=== PATIENT | female | born 1935 | race Caucasian/White ===

== ENCOUNTER → 2020-06-23 13:20 | Outpatient (CLI) | payer MEDICARE, SELFPAY ==
--- NOTE | 2020-06-23 13:23 | CT_ITS ---
STUDY: CT CHEST WITHOUT CONTRAST REASON FOR EXAM: Female, 85 years old. COUGH/EVAL. FOR PULMONARY FIBROSIS, HX-A-FIB, NO SMOKING HISTORY RADIATION DOSAGE (If Supplied By Facility): CTDIvol = ( 12.4 ) mGy, DLP = ( 343.88 ) mGycm TECHNIQUE: Transaxial imaging was performed without the administration of intravenous contrast material. Multiplanar coronal and sagittal images were reformatted. Individualized dose optimization techniques were used for this CT. COMPARISON: None. FINDINGS: There is evidence of diffuse groundglass appearance in both lungs worse in the upper lobes. There is evidence of increased interstitial markings at the lung bases with areas of confluence and cystic changes suggestive of bronchiectasis and honeycombing. Calcified granuloma in the right lower lobe. There are calcifications of the coronary arteries. There is moderate cardiac enlargement. There are multiple small lymph nodes within the mediastinum, which are normal in size and morphology most compatible with reactive lymph hyperplasia. Normal hilar regions. Normal unenhanced pulmonary arteries. There is atherosclerotic calcification of the aortic arch with tortuosity and elongation of the aortic arch and descending thoracic aorta. There are multi-level degenerative changes of the thoracic spine. There is no demonstrated abnormality of the visualized upper abdomen. CT/Chest without Contrast IMPRESSION: Findings suggestive of chronic seizures or fibrosis with cystic changes in the lower lobes with a groundglass appearance in both lungs suggestive of chronic interstitial fibrosis. Electronically Signed: Sina Gould, at 16:01 EDT , Service support ,
== END ==
PROVIDERS: PCP Family Medicine; Referring Provider Internal Medicine Pulmonary Disease; Visit Provider Internal Medicine Pulmonary Disease
DX: J84.10 Pulmonary fibrosis, unspecified (principal)
CPT/HCPCS: 71250

== ENCOUNTER → 2020-07-09 | Outpatient (CLI) | payer MEDICARE, SELFPAY ==
[2015-09-21 12:25] VITALS: BMI 28.8
== END | disposition home or self-care (01) ==
LOC: LABSPEC 16:07
PROVIDERS: PCP Family Medicine; Referring Provider Internal Medicine Pulmonary Disease; Visit Provider Internal Medicine Pulmonary Disease
DX: J84.10 Pulmonary fibrosis, unspecified (principal); J84.89 Other specified interstitial pulmonary diseases; I48.91 Unspecified atrial fibrillation
CPT/HCPCS: 87070; 87205

== ENCOUNTER → 2020-11-16 12:53 | Outpatient (CLI) | payer MEDICARE, SELFPAY ==
--- NOTE | 2020-11-16 13:07 | CT_ITS ---
STUDY: CT CHEST WITHOUT CONTRAST REASON FOR EXAM: Female, 85 years old. INTERSTITIAL PULMONARY DISEASE. INCREASE SOB RADIATION DOSAGE (If Supplied By Facility): CTDIvol = ( 11.21 ) mGy, DLP = ( 304.90 ) mGycm TECHNIQUE: Transaxial imaging was performed without the administration of intravenous contrast material. Multiplanar coronal and sagittal images were reformatted. Individualized dose optimization techniques were used for this CT. COMPARISON: Comparison is made with prior study dated 06/23/2020. FINDINGS: Stable benign appearing bilateral axillary lymph nodes. Again, there is evidence of diffuse groundglass appearance in both lungs worse in the upper lobes. Stable interstitial fibrosis with cystic changes suggestive of honeycombing worse in the lower lobes. There is no demonstrated pleural abnormality. There are calcifications of the coronary arteries. There are multiple small lymph nodes within the mediastinum, which are normal in size and morphology most compatible with reactive lymph hyperplasia. Calcified precarinal lymph node. This is unchanged. Normal hilar regions. Normal unenhanced pulmonary arteries. There is atherosclerotic calcification of the aortic arch with tortuosity and elongation of the aortic arch and descending thoracic aorta. There are multi-level degenerative changes of the thoracic spine. There is no demonstrated abnormality of the visualized upper abdomen. CT/Chest without Contrast IMPRESSION: Stable examination. Electronically Signed: Sina Gould MD at 13:30 EST , Service support ,
== END ==
PROVIDERS: PCP Family Medicine; Referring Provider Internal Medicine Pulmonary Disease; Visit Provider Internal Medicine Pulmonary Disease
DX: J84.9 Interstitial pulmonary disease, unspecified (principal)
CPT/HCPCS: 71250

== ENCOUNTER → 2021-03-22 13:13 | Outpatient (CLI) | payer MEDICARE, SELFPAY ==
--- NOTE | 2021-03-22 13:19 | CT_ITS ---
STUDY: CT CHEST WITHOUT CONTRAST REASON FOR EXAM: Female, 85 years old. COUGH. Idiopathic nonspecific interstitial pneumonitis. RADIATION DOSAGE (If Supplied By Facility): CTDIvol = ( 13.08 ) mGy, DLP = ( 373.68 ) mGycm TECHNIQUE: Transaxial imaging was performed without the administration of intravenous contrast material. Multiplanar coronal and sagittal images were reformatted. Individualized dose optimization techniques were used for this CT. COMPARISON: Comparison is made with prior study dated 11/16/2020. FINDINGS: Stable small benign-appearing bilateral axillary lymph nodes. Once again, there is diffuse increased interstitial markings worse in the lower lobes with areas of confluence and subpleural blebs. This is in keeping with diffuse interstitial fibrosis and honeycombing. This is unchanged. There are calcifications of the coronary arteries. There are multiple small lymph nodes within the mediastinum, which are normal in size and morphology most compatible with reactive lymph hyperplasia. Normal hilar regions. Normal unenhanced pulmonary arteries. There is atherosclerotic calcification of the aortic arch with tortuosity and elongation of the aortic arch and descending thoracic aorta. There are multi-level degenerative changes of the thoracic spine. There is no demonstrated abnormality of the visualized upper abdomen. CT/Chest without Contrast IMPRESSION: Stable examination. Electronically Signed: Sina Gould MD at 15:22 EDT , Service support ,
== END ==
PROVIDERS: PCP Family Medicine; Referring Provider Internal Medicine Pulmonary Disease; Visit Provider Internal Medicine Pulmonary Disease
DX: J84.113 Idiopathic non-specific interstitial pneumonitis (principal); R05 Cough
CPT/HCPCS: 71250

== ENCOUNTER 2022-05-27 08:09 | Outpatient (RCR) | payer MEDICARE, SELFPAY ==
[2022-05-27 08:39] VITALS: BP 142/52; PULSE 93; TEMP 36.3
--- NOTE | 2022-05-27 10:14 | HP.PCM_ITS ---
History of Present Illness Date of Service: 05/27/22 Chief Complaint: Left leg wound and right anterior leg wound History of Wound: Left leg wound occurred the end of March when she getting into a Jeep, she scraped her leg along the side of the vehicle. She went to her PCP who had her placing silvadene cream topped with telfa dressing on the wound. Last week she dropped her Ipad and it hit her right anterior leg and left an open wound, which has been draining quite a bit of clear drainage. She has a history of pulmonary fibrosis and is on oxygen at night time and PRN, Afib on warfarin, CKD stage 3, HTN, hypothyroidism, hyperlipidemia, aortic valve regurgitation, and bilateral knee replacements. She does sleep in a chair. She denies any fever, chills, nausea or vomiting. Progress of Wound: Left leg wound has necrotic scabbing present. Right anterior leg wound is a small separation. She has +3 pitting edema present bilateral lower extremities. [facility] Medical History (Reviewed 05/29/22 @ 21:35 by Justyna Conley PROCESS CONTROL TECHNICIAN, PROCESS CONTROL TECHNICIAN-C) Atrial fibrillation Hypertension Hypothyroidism Osteoarthritis Paroxysmal a-fib Home Medications Digoxin [Digox] 250 mcg PO QODAY 04/30/15 [History Last Taken Unknown] dofetilide 500 mcg capsule (Tikosyn) 500 mcg PO BID 04/30/15 [History Last Taken 09/21/15 06:59] furosemide 40 mg tablet 40 mg PO BIDLX 04/30/15 [History Last Taken Unknown] levothyroxine 75 mcg tablet 75 mcg PO DAILY 04/30/15 [History Last Taken 09/21/15 06:58] metoprolol tartrate 50 mg tablet 50 mg PO BID 04/30/15 [History Last Taken 09/21/15 06:58] multivitamin with folic acid 400 mcg tablet (Thera) 1 tab PO DAILY 04/30/15 [History Last Taken Unknown] acetaminophen 325 mg tablet (Tylenol) 650 mg PO Q6H PRN PRN Minor Pain ##1 09/23/15 [Rx Last Taken Unknown] docusate calcium 240 mg capsule (Stool Softener (docusate calcium)) 240 mg PO DAILY ##1 09/23/15 [Rx Last Taken Unknown] enoxaparin 40 mg/0.4 mL subcutaneous syringe (Lovenox) 40 mg SQ DAILY ##1 09/23/15 [Rx Last Taken Unknown] hydrocodone-acetaminophen 5-325mg 5mg-325mg 1 - 2 tab PO Q4H PRN PRN Mild-Mod Pain (-03/08) ##60 09/23/15 [Rx Last Taken Unknown] warfarin 5 mg tablet (Jantoven) 5 mg PO DAILY ##0 09/23/15 [Rx Last Taken 05/06/15] Allergy/AdvReac Type Severity Reaction Status Date / Time No Known Allergies Allergy Verified 04/30/15 10:07 Surgical History (Reviewed 05/29/22 @ 21:35 by Justyna Conley PROCESS CONTROL TECHNICIAN, PROCESS CONTROL TECHNICIAN-C) Status post total left knee replacement Social History (Reviewed 05/29/22 @ 21:35 by Justyna Conley PROCESS CONTROL TECHNICIAN, PROCESS CONTROL TECHNICIAN-C) Smoking Status: Never smoker ROS Constitutional Constitutional: Denies chills or fever(s) Eyes Eyes: Reports requires corrective lenses ENT HEENT: Reports none Cardiovascular Cardiovascular: Reports dyspnea on exertion and pedal edema; Denies chest pain or dizziness Respiratory/Chest Respiratory/Chest: Reports portable oxygen @ home and shortness of breath with exertion Gastrointestinal Gastrointestinal: Reports constipation; Denies diarrhea, nausea or vomiting Musculoskeletal Musculoskeletal: Reports joint pain and joint stiffness Integumentary Integumentary: Reports wounds Neurologic Neurologic: Reports none Psychiatric Psychiatric: Reports none Endocrine Endocrinology: Reports as per HPI Hematologic/Lymphatic Hematologic/Lymphatic: Reports easy bruising Vital Signs Vital Signs Vital Signs: 05/27/22 08:39 Temperature 97.4 F L Temperature Source Temporal Pulse Rate 93 Blood Pressure 142/52 H Blood Pressure Mean 82 Blood Pressure Source Monitor Blood Pressure Position Sitting Blood Pressure Location Left Arm Physical Exam Const alert, oriented x3 and no apparent distress General Appearance: cooperative and well kempt HEENT normocephalic and head/scalp atraumatic Face and Sinus: face symmetric Neck full ROM Resp normal air movement, no retractions and clear to auscultation bilaterally Effort and Inspection: able to speak in complete sentences Cardio regular rate Rhythm: abnormal rhythm irregularly irregular Peripheral Pulses: dorsalis pedis pulses present bilateral 1+ GI soft to palpation and non-tender Extremity normal capillary refill General Extremity: edema bilateral lower extremity (+3) Details: severe Peripheral Pulses: Yes dorsalis pedis pulses present bilateral 1+ Skin Wound Narrative: Left leg wound with necrotic scabbing. Right anterior leg wound is small open area draining clear drainage. Neuro oriented x3 Psych cooperative and affect normal Appearance: appropriate Debridement Note Debridement Note Wound debrided: leg wound Laterality: Left Type of Debridement: Excisional debridement Anesthesia Used: 5% Lidocaine Gel Depth: Down to and including healthy tissue and in the subcutaneous layer Percentage of wound debrided: 100 Instrument Used: 5mm curette Tissue Removed: Non viable tissue and slough Severity: Fat Layer Exposed Amount of bleeding with debridement: Mild Bleeding Controlled with: Pressure and Compression and gauze Patient tolerated procedure: Patient tolerated procedure well Debridement Free Text: After necrotic, non viable tissue removed, the base of ulcer is fibrous Post-Debridement Measurements and Additional Note: Post-Debridement Measurements/Treatment - Nurse 1 - General Ulcer Assessment Start: 05/27/22 08:39 Freq: Status: Active Protocol: FIDELINA Activity Type Activity Date Activity User E-sign Co-sign Detail Recorded Client Recorded Date Recorded By Document 05/27/22 08:39 LINDSEY [id number] 05/27/22 08:51 KR 05/27/22 08:39 WC - Today's Visit Information Type of service Initial Visit Arrival Mode Wheelchair Patient Identification Verified (Name & Yes ) Vital Signs Temperature (97.8 F-99.1 F) 97.4 F L Temperature Source Temporal Pulse Rate (60-100) 93 Pulse Location Monitor Blood Pressure (90/60-120/80) 142/52 H Blood Pressure Mean 82 Source Monitor Position Sitting Blood Pressure Location Left Arm History Since Last Visit- (Skip if this is Patient's initial visit) Have you changed medications since your No last visit? Any new allergies or adverse reactions No Had a fall/change in ADL's that may No increase risk of falls Signs or symptoms of abuse and/or No neglect since last visit Have you been in the hospital since your No last visit? Has dressing in place as prescribed Yes Has compression in place as prescribed Yes Has offloadiing in place as prescribed N/A Left Footwear Regular Shoe Right Footwear Regular Shoe Pain Scale: 0-10 Numeric Is Patient Pain Free? Yes - Nurse 1 - General Ulcer Measurement Start: 05/27/22 08:39 Freq: Status: Active Protocol: Activity Type Activity Date Activity User E-sign Co-sign Detail Recorded Client Recorded Date Recorded By Document 05/27/22 08:39 KR [id number] 05/27/22 08:51 KR 05/27/22 08:39 Wound Center Nurse 1 #2 left farias -Current Size (cm) - Length 5 -Current Size (cm) - Width 5.5 -Current Size (cm) - Depth 0.2 -Total Square Cm 27.5 -Exudate Amt Large -Exudate Type Yellow/Green -Wound Margin Distinct, Outline Attached -Necrosis Amt Large (67-100%) -Necrotic Tissue Type Eschar -Texture (Sheba-wound Skin Appearance) Assessed, Scarring -Moisture (Sheba-wound Skin Appearance) No Abnormality, Assessed -Color (Sheba-wound Skin Appearance) No Abnormality, Assessed -Temperature (Sheba-wound Skin No Abnormality Appearance) (Pt Warm) -Tenderness on Palpation (Sheba-wound No Skin Appearance) -Ulcer Cleansing Rinsed/ Irrigated with Saline -Foul Odor after Cleansing No -Anesthetic Used 5% Lidocaine Gel #1 right farias -Current Size (cm) - Length 0.1 -Current Size (cm) - Width 0.6 -Current Size (cm) - Depth 0.1 -Total Square Cm 0.06 -Exudate Amt Large -Exudate Type Yellow/Green -Wound Margin Distinct, Outline Attached -Granulation Amt Medium (34-66%) -Granulation Quality [place] -Necrosis Amt None Present (0 %) -Texture (Sheba-wound Skin Appearance) Assessed, Scarring -Moisture (Sheba-wound Skin Appearance) No Abnormality, Assessed -Color (Sheba-wound Skin Appearance) No Abnormality, Assessed -Temperature (Sheba-wound Skin No Abnormality Appearance) (Pt Warm) -Tenderness on Palpation (Sheba-wound No Skin Appearance) -Ulcer Cleansing Rinsed/ Irrigated with Saline -Foul Odor after Cleansing No -Anesthetic Used 5% Lidocaine Gel Right Calf (cm) 39 Right Ankle (cm) 26 Left Calf (cm) 44 Left Ankle (cm) 25 WC - Nurse 2 - General Ulcer CM Notes Start: 05/27/22 08:39 Freq: Status: Active Protocol: Activity Type Activity Date Activity User E-sign Co-sign Detail Recorded Client Recorded Date Recorded By Document 05/27/22 09:15 KAITLIN [id number] 05/27/22 09:28 KAITLIN 07/29/22 09:15 Wound Center Nurse 2 #2 left farias -Time 09:15 -Correct Patient Yes -Correct Side, Site, Position Yes -Correct Procedure Yes -Procedure Performed Yes -Type of Procedure Debridement -Clinical Debridement Subcutaneous -Tissue Removed Subcutaneous -Post Debridement (cm) - Length 5.0 -Post Debridement (cm) - Width 4.8 -Post Debridement (cm) - Depth 0.3 -Total Square (Post) (cm) 24.00 -Area of Debridement (cm) - Length 5.0 -Area of Debridement (cm) - Width 4.8 -Total Square (Area) (cm) 24.00 -Tunneling No -Undermining/Tunneling No -Circular Undermining No -Wound/Ulcer Outcome Not Healed -Ulcer Cleansing Rinsed/ Irrigated with Saline -Foul Odor after Cleansing No -Bioengineered Tissue No -Bleeding Controlled with Pressure -Treatment Response Procedure Tolerated Well -Offloading No -Debridement - Subq, 1st 20sq cm Yes -Debridement, SubQ, ea addt'l 20sq cm 1 or part thereof #1 right farias -Time 09:16 -Correct Patient Yes -Correct Side, Site, Position Yes -Correct Procedure Yes -Procedure Performed Yes -Type of Procedure Debridement -Clinical Debridement Subcutaneous -Tissue Removed Subcutaneous -Post Debridement (cm) - Length 0.2 -Post Debridement (cm) - Width 0.8 -Post Debridement (cm) - Depth 0.3 -Total Square (Post) (cm) 0.16 -Area of Debridement (cm) - Length 0.2 -Area of Debridement (cm) - Width 0.8 -Total Square (Area) (cm) 0.16 -Tunneling No -Undermining/Tunneling Yes -Undermining/Tunneling Starts (O'clock 3 ) -Undermining/Tunneling Ends (O'clock) 9 -Maximum Distance (cm) 0.3 -Circular Undermining No -Wound/Ulcer Outcome Not Healed -Ulcer Cleansing Rinsed/ Irrigated with Saline -Foul Odor after Cleansing No -Bioengineered Tissue No -Bleeding Controlled with Pressure -Treatment Response Procedure Tolerated Well -Offloading No -Debridement - Subq, 1st 20sq cm No Pain Scale: 0-10 Numeric Is Patient Pain Free? Yes WC - Nurse 3 - General Ulcer D/C NN Start: 05/27/22 08:39 Freq: Status: Active Protocol: Activity Type Activity Date Activity User E-sign Co-sign Detail Recorded Client Recorded Date Recorded By Document 05/27/22 09:59 LINDSEY [id number] 05/27/22 10:00 LINDSEY 05/27/22 09:59 Wound Care Nurse 3 #2 left farias -Ulcer Cleansing Rinsed/ Irrigated with Saline -Primary Dressing Applied Aquacel AG 4x4 -Primary Dressing Covered/Secured with Dry Gauze,Dry Gauze & Roll Gauze,Secured with Tape -Aquacel AG 4x4 1 Right -Compression Wrap Steve Wrap Left -Compression Wrap Steve Wrap Pain Scale: 0-10 Numeric Is Patient Pain Free? Yes WC - Visit Discharge Discharge Condition Stable Ambulatory Status Wheelchair Transportation Private Auto Accompanied by daughter Additional Wound Wound debrided: anterior leg wound Laterality: Right Type of Debridement: Excisional debridement Anesthesia Used: 5% Lidocaine Gel Depth: Down to and including healthy tissue and in the subcutaneous layer Percentage of wound debrided: 100 Instrument Used: 3mm curette Tissue Removed: Non viable tissue and slough Severity: Fat Layer Exposed Amount of bleeding with debridement: Mild Bleeding Controlled with: Pressure Patient tolerated procedure: Patient tolerated procedure well Charges/Coding Visit Charges Office Visits / Consults: [id number] OV L4 Est (25 modifier) Procedures Integumentary [id number]: [id number] Clari subq tissue 20 sq cm/< Assessment/Plan Assessment/Plan (1) Non-healing wound of left lower extremity: CODE(S): S81.802A - Unspecified open wound, left lower leg, initial encounter (2) Wound of right lower extremity: CODE(S): S81.801A - Unspecified open wound, right lower leg, initial encounter (3) Edema of both lower legs: CODE(S): R60.0 - Localized edema (4) Chronic anticoagulation: CODE(S): Z79.01 - oysterman (current) use of anticoagulants (5) On home oxygen therapy: CODE(S): Z99.81 - Dependence on supplemental oxygen PLAN: Plan Patient was seen and evaluated today at the wound center and a subcutaneous debridement was performed as documented. A wound culture was obtained of the left leg wound today. Depending on the results of the culture, it may necessitate the need for treatment with a ntibiotics. Wound care - Left leg wound Santyl nickel thickness covered with gauze daily. Right leg wound aquacel-ag covered with super absorber/ABD daily. She should wash the wounds with soap and water daily. Place STEVE wrap on bilateral lower legs to help with compression. Will order vascular studies of bilateral lower extremities. Encouraged patient to try sleeping flat to help with edema, but she states she needs to sleep in her chair to help her breathe. Keep legs elevated when seated. Encouraged high protein diet and Vitamin C 1,000 mg intake daily to help with wound healing. Follow up one week. Call or come in sooner if have any questions or concerns. Greater than 35 minutes spent with patient, planning care and reviewing notes from PCP.
== END 2022-05-29 23:59 | disposition home or self-care (01) ==
LOC: WC 08:09
PROVIDERS: PCP Family Medicine; Visit Provider Nurse Practitioner Family
DX: L97.822 Non-pressure chronic ulcer of other part of left lower leg with fat layer exposed (principal); L97.812 Non-pressure chronic ulcer of other part of right lower leg with fat layer exposed; I48.0 Paroxysmal atrial fibrillation; J84.10 Pulmonary fibrosis, unspecified; N18.30 Chronic kidney disease, stage 3 unspecified; R60.0 Localized edema; E78.5 Hyperlipidemia, unspecified; Z79.01 Long term (current) use of anticoagulants; I12.9 Hypertensive chronic kidney disease with stage 1 through stage 4 chronic kidney disease, or unspecified chronic kidney disease; Z99.81 Dependence on supplemental oxygen; M19.90 Unspecified osteoarthritis, unspecified site; E03.9 Hypothyroidism, unspecified; Z79.899 Other long term (current) drug therapy; Z79.890 Hormone replacement therapy
CPT/HCPCS: 11042; 11045; 87070; 87075; 87077; 87186; 87205; 99213; G0463

== ENCOUNTER 2022-06-22 14:00 | Outpatient (RCR) | payer MEDICARE, SELFPAY ==
[2022-05-30 00:42] VITALS: BP 142/52; PULSE 93; TEMP 36.3
[2022-06-03 11:04] VITALS: BP 153/73; PULSE 77; TEMP 36.1
--- NOTE | 2022-06-03 11:33 | PCM.WC.PN ---
History of Present Illness Date of Service: 06/03/22 Chief Complaint: Left leg wound and right anterior leg wound History of Wound: Left leg wound occurred the end of March when she getting into a Jeep, she scraped her leg along the side of the vehicle. She went to her PCP who had her placing silvadene cream topped with telfa dressing on the wound. Last week she dropped her Ipad and it hit her right anterior leg and left an open wound, which has been draining quite a bit of clear drainage. She has a history of pulmonary fibrosis and is on oxygen at night time and PRN, Afib on warfarin, CKD stage 3, HTN, hypothyroidism, hyperlipidemia, aortic valve regurgitation, and bilateral knee replacements. She does sleep in a chair. Wound care - left anterior leg ulcer and right anterior leg wound Santyl nickel thickness covered with gauze daily. DERRELL wrap for compression. Make sure to wrap lower legs up to knees. Wound culture obtained on Staphylococcus epidermidis, Corynebacterium jeikeium, Corynebacterium amycolatum She denies any fever, chills, nausea or vomiting. Progress of Wound: Right anterior leg ulcer and left anterior leg ulcer are both stable. Left anterior leg ulcer continues to have fibrous, non viable tissue present. Her edema is much improved with DERRELL wraps for compression. Objective Data Objective Data Vital Signs: Vital Signs Temp Pulse BP 97.0 F L 77 153/73 H 06/03/22 11:04 06/03/22 11:04 06/03/22 11:04 Charges/Coding Procedures Integumentary 111xxx-113xx: 11312 Clari subq tissue 20 sq cm/< Physical Exam Const alert and oriented x3 General Appearance: cooperative HEENT normocephalic Neck full ROM Resp normal air movement Effort and Inspection: able to speak in complete sentences Cardio regular rate Cardio Narrative: bilateral lower extremity edema is much improved with compression +1-+2 to proximal leg then it increases to +2-+3 edema around her knees bilaterally. Peripheral Pulses: dorsalis pedis pulses present bilateral 1+ Extremity normal capillary refill General Extremity: edema bilateral lower extremity (+3) Details: severe Peripheral Pulses: Yes dorsalis pedis pulses present bilateral 1+ Skin Wound Narrative: Left leg wound with fibrous tissue in the base. It is showing improvement. Left anterior leg ulcer is small and continues to drain. Neuro oriented x3 Psych affect normal Appearance: appropriate Debridement Note Debridement Note Wound debrided: Anterior leg ulcer Laterality: Right Type of Debridement: Excisional debridement Anesthesia Used: 4% Lidocaine Solution and 5% Lidocaine Gel Depth: Down to and including healthy tissue and in the subcutaneous layer Percentage of wound debrided: 100 Instrument Used: 3mm curette Tissue Removed: Devitalized tissue and slough Severity: Fat Layer Exposed Amount of bleeding with debridement: Mild Bleeding Controlled with: Compression and gauze Patient tolerated procedure: Patient tolerated procedure well Post-Debridement Measurements and Additional Note: Post-Debridement Measurements/Treatment WC - Nurse 1 - General Ulcer Assessment Start: 06/03/22 11:04 Freq: Status: Active Protocol: FIDELINA Activity Type Activity Date Activity User E-sign Co-sign Detail Recorded Client Recorded Date Recorded By Document 06/03/22 11:04 NIYA [id number] 06/03/22 11:07 NIYA 06/03/22 11:04 WC - Today's Visit Information Type of service Follow-up Visit (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 Any new allergies or adverse reactions No Had a fall/change in ADL's that may No increase risk of falls Signs or symptoms of abuse and/or No neglect since last visit Have you been in the hospital since your No last visit? Has dressing in place as prescribed Yes Has compression in place as prescribed N/A Has offloadiing in place as prescribed N/A Experienced any changes in pain level or No management Left Footwear Regular Shoe Right Footwear Regular Shoe Pain Scale: 0-10 Numeric Is Patient Pain Free? Yes LUCIANO - Nurse 1 - General Ulcer Measurement Start: 06/03/22 11:04 Freq: Status: Active Protocol: Activity Type Activity Date Activity User E-sign Co-sign Detail Recorded Client Recorded Date Recorded By Document 06/03/22 11:04 NIYA [id number] 06/03/22 11:07 AK 06/03/22 11:04 Wound Center Nurse 1 #2 left farias -Current Size (cm) - Length 4.6 -Current Size (cm) - Width 3.4 -Current Size (cm) - Depth 0.1 -Total Square Cm 15.64 -Exudate Amt Small -Exudate Type Serosanguineous -Wound Margin Distinct, Outline Attached -Granulation Amt Medium (34-66%) -Granulation Quality [place] -Necrosis Amt Small (1-33%) -Necrotic Tissue Type Adherent Slough -Texture (Sheba-wound Skin Appearance) Assessed, Scarring -Moisture (Sheba-wound Skin Appearance) No Abnormality, Assessed -Color (Sheba-wound Skin Appearance) No Abnormality, Assessed -Temperature (Sheba-wound Skin No Abnormality Appearance) (Pt Warm) -Tenderness on Palpation (Sheba-wound No Skin Appearance) -Ulcer Cleansing Rinsed/ Irrigated with Saline -Foul Odor after Cleansing No -Anesthetic Used 5% Lidocaine Gel #1 right farias -Current Size (cm) - Length 0.5 -Current Size (cm) - Width 0.7 -Current Size (cm) - Depth 0.2 -Total Square Cm 0.35 -Exudate Amt Small -Exudate Type Serosanguineous -Wound Margin Distinct, Outline Attached -Granulation Amt Medium (34-66%) -Granulation Quality [place] -Necrosis Amt Small (1-33%) -Necrotic Tissue Type Adherent Slough -Texture (Sheba-wound Skin Appearance) Assessed, Scarring -Moisture (Sheba-wound Skin Appearance) No Abnormality, Assessed -Color (Sheba-wound Skin Appearance) No Abnormality, Assessed -Temperature (Sheba-wound Skin No Abnormality Appearance) (Pt Warm) -Tenderness on Palpation (Sheba-wound No Skin Appearance) -Ulcer Cleansing Rinsed/ Irrigated with Saline -Foul Odor after Cleansing No -Anesthetic Used 5% Lidocaine Gel WC - Nurse 3 - General Ulcer D/C NN Start: 06/03/22 11:04 Freq: Status: Active Protocol: Activity Type Activity Date Activity User E-sign Co-sign Detail Recorded Client Recorded Date Recorded By Document 06/03/22 11:25 LINDSEY [id number] 06/03/22 11:26 KR 06/03/22 11:25 Wound Care Nurse 3 #2 left farias -Ulcer Cleansing Rinsed/ Irrigated with Saline -Primary Dressing Applied C Hydrogel ($) -Primary Dressing Covered/Secured with Dry Gauze, Secured with Tape #1 right farias -Primary Dressing Applied C Hydrogel ($) -Primary Dressing Covered/Secured with Dry Gauze, Secured with Tape Right -Compression Wrap Derrlel Wrap Left -Compression Wrap Derrell Wrap Pain Scale: 0-10 Numeric Is Patient Pain Free? Yes WC - Visit Discharge Discharge Condition Stable Ambulatory Status Ambulatory Transportation Private Auto Accompanied by son Additional Wound Wound debrided: Anterior leg ulcer Laterality: Left Type of Debridement: Excisional debridement Anesthesia Used: 5% Lidocaine Gel Depth: Down to and including healthy tissue and in the subcutaneous layer Percentage of wound debrided: 100 Instrument Used: 5mm curette Tissue Removed: Devitalized tissue and slough Severity: Fat Layer Exposed Amount of bleeding with debridement: Mild Bleeding Controlled with: Compression and gauze Patient tolerated procedure: Patient tolerated procedure well Assessment/Plan Assessment/Plan (1) Ulcer of left lower extremity with fat layer exposed: CODE(S): L97.922 - Non-pressure chronic ulcer of unspecified part of left lower leg with fat layer exposed (2) Wound of right lower extremity: CODE(S): S81.801A - Unspecified open wound, right lower leg, initial encounter (3) Edema of both lower legs: CODE(S): R60.0 - Localized edema (4) Chronic anticoagulation: CODE(S): Z79.01 - prison (current) use of anticoagulants (5) On home oxygen therapy: CODE(S): Z99.81 - Dependence on supplemental oxygen (6) Atrial fibrillation: CODE(S): I48.91 - Unspecified atrial fibrillation PLAN: Plan Patient was seen and evaluated today at the wound center and a subcutaneous debridement was performed as documented. Wound culture obtained on 05/27/22 Staphylococcus epidermidis, Corynebacterium jeikeium, Corynebacterium amycolatum. She was started on Augmentin and a probiotic. Wound care - Left leg ulcer and right leg wound Santyl nickel thickness covered with gauze daily. She should wash the wounds with soap and water daily. Place DERRELL wrap on bilateral lower legs to help with compression. Will order vascular studies of bilateral lower extremities. Encouraged patient to try sleeping flat to help with edema, but she states she needs to sleep in her chair to help her breathe. Keep legs elevated when seated. Encouraged high protein diet and Vitamin C 1,000 mg intake daily to help with wound healing. Follow up one week. Call or come in sooner if have any questions or concerns.
[2022-06-07 14:21] VITALS: BP 159/72; PULSE 95; RESP 22; TEMP 36.3
--- NOTE | 2022-06-07 16:16 | PCM.WC.PN ---
History of Present Illness Date of Service: 06/07/22 Chief Complaint: Left leg wound and right anterior leg wound History of Wound: Left leg wound occurred the end of March when she getting into a Jeep, she scraped her leg along the side of the vehicle. She went to her PCP who had her placing silvadene cream topped with telfa dressing on the wound. Last week she dropped her Ipad and it hit her right anterior leg and left an open wound, which has been draining quite a bit of clear drainage. She has a history of pulmonary fibrosis and is on oxygen at night time and PRN, Afib on warfarin, CKD stage 3, HTN, hypothyroidism, hyperlipidemia, aortic valve regurgitation, and bilateral knee replacements. She does sleep in a chair. Wound care - left anterior leg ulcer and right anterior leg wound Santyl nickel thickness covered with gauze daily. STEVE wrap for compression. Wound culture obtained on Staphylococcus epidermidis, Corynebacterium jeikeium, Corynebacterium amycolatum and she is being treated with Augmentin and a probiotic. She denies any fever, chills, nausea or vomiting. Objective Data Objective Data Vital Signs: Vital Signs Temp Pulse Resp BP 97.4 F L 95 22 H 159/72 H 06/07/22 14:21 06/07/22 14:21 06/07/22 14:21 06/07/22 14:21 Charges/Coding Procedures Integumentary 111xxx-113xx: 07497 Clari subq tissue 20 sq cm/< Add On Codes: 26442 Clari subq tissue add-on (x1) Physical Exam Const alert and oriented x3 General Appearance: cooperative HEENT normocephalic Neck full ROM Resp normal air movement Effort and Inspection: able to speak in complete sentences Cardio regular rate Cardio Narrative: bilateral lower extremity edema is much improved with compression +1-+2 to proximal leg then it increases to +2-+3 edema around her knees bilaterally. Peripheral Pulses: dorsalis pedis pulses present bilateral 1+ Extremity normal capillary refill General Extremity: edema bilateral lower extremity (+3) Details: severe Peripheral Pulses: Yes dorsalis pedis pulses present bilateral 1+ Skin Wound Narrative: Left leg wound with fibrous tissue in the base. It is showing improvement. Left anterior leg ulcer is small and base is beefy pink. Neuro oriented x3 Psych affect normal Appearance: appropriate Debridement Note Debridement Note Wound debrided: Anterior leg ulcer Laterality: Right Type of Debridement: Excisional debridement Anesthesia Used: 4% Lidocaine Solution and 5% Lidocaine Gel Depth: Down to and including healthy tissue and in the subcutaneous layer Percentage of wound debrided: 100 Instrument Used: 3mm curette Tissue Removed: Devitalized tissue and slough Severity: Fat Layer Exposed Amount of bleeding with debridement: Mild Bleeding Controlled with: Compression and gauze Patient tolerated procedure: Patient tolerated procedure well Post-Debridement Measurements and Additional Note: Post-Debridement Measurements/Treatment - Nurse 1 - General Ulcer Assessment Start: 06/03/22 11:04 Freq: Status: Active Protocol: FIDELINA Activity Type Activity Date Activity User E-sign Co-sign Detail Recorded Client Recorded Date Recorded By Document 06/03/22 11:04 AK [id number] 06/03/22 11:07 AK Document 06/07/22 14:21 DL [id number] 06/07/22 14:31 DL 06/03/22 06/07/22 11:04 14:21 - Today's Visit Information Type of service Follow-up Visit Follow-up Visit (Physician/LEAN MANUFACTURING COORDINATOR (Physician/LEAN MANUFACTURING 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 ) ) Arrival Mode Ambulatory Ambulatory, Wheelchair Transfer Assistance Manual Transfer Assist (Other) x1 Patient Identification Verified (Name & Yes Yes ) Patient Requires Transmission-Based No Precautions Vital Signs Temperature (97.8 F-99.1 F) 97.0 F L 97.4 F L Temperature Source Temporal Temporal Pulse Rate (60-100) 77 95 Pulse Location Monitor Monitor Respiratory Rate (12-18) 22 H Respiratory rate source Observation Blood Pressure (90/60-120/80) 153/73 H 159/72 H Blood Pressure Mean (mm Hg) 99 101 Source Monitor Monitor Position Semi-Fowlers Blood Pressure Location Right Arm History Since Last Visit- (Skip if this is Patient's initial visit) Have you changed medications since your No No last visit? Any new allergies or adverse reactions No No Had a fall/change in ADL's that may No No increase risk of falls Signs or symptoms of abuse and/or No No neglect since last visit Have you been in the hospital since your No No last visit? Has dressing in place as prescribed Yes Yes Has compression in place as prescribed N/A Yes Has offloadiing in place as prescribed N/A N/A Experienced any changes in pain level or No No management Left Footwear Regular Shoe Right Footwear Regular Shoe Pain Scale: 0-10 Numeric Is Patient Pain Free? Yes Yes WC - Nurse 1 - General Ulcer Measurement Start: 06/03/22 11:04 Freq: Status: Active Protocol: Activity Type Activity Date Activity User E-sign Co-sign Detail Recorded Client Recorded Date Recorded By Document 06/03/22 11:04 AK [id number] 06/03/22 11:07 AK Document 06/07/22 14:21 DL [id number] 06/07/22 14:31 DL 06/03/22 06/07/22 11:04 14:21 Wound Center Nurse 1 #2 left farias -Current Size (cm) - Length 4.6 5 -Current Size (cm) - Width 3.4 4.1 -Current Size (cm) - Depth 0.1 0.1 -Total Square Cm 15.64 20.5 -Photo Taken No -Exudate Amt Small Medium -Exudate Type Serosanguineous Serosanguineous -Wound Margin Distinct, Distinct, Outline Outline Attached Attached -Granulation Amt Medium (34-66%) Medium (34-66%) -Granulation Quality [place],Red -Necrosis Amt Small (1-33%) Medium (34-66%) -Necrotic Tissue Type Adherent Slough Adherent Slough -Structure Exposed N/A -Texture (Sheba-wound Skin Appearance) Assessed, Scarring Scarring -Moisture (Sheba-wound Skin Appearance) No Abnormality, No Abnormality Assessed -Color (Sheba-wound Skin Appearance) No Abnormality, Hemosiderin Assessed Staining -Temperature (Sheba-wound Skin No Abnormality No Abnormality Appearance) (Pt Warm) (Pt Warm) -Tenderness on Palpation (Sheba-wound No Skin Appearance) -Ulcer Cleansing Rinsed/ Rinsed/ Irrigated with Irrigated with Saline Saline -Foul Odor after Cleansing No No -Anesthetic Used 5% Lidocaine 4% Lidocaine Gel Solution #1 right farias -Current Size (cm) - Length 0.5 0.6 -Current Size (cm) - Width 0.7 0.5 -Current Size (cm) - Depth 0.2 0.4 -Total Square Cm 0.35 0.30 -Photo Taken No -Maximum Distance #2 (cm) 0.1 -Circular Undermining Yes -Exudate Amt Small Small -Exudate Type Serosanguineous Serosanguineous -Wound Margin Distinct, Thickened & Outline Rolled Under Attached -Granulation Amt Medium (34-66%) Small (1-33%) -Granulation Quality [place] Red -Necrosis Amt Small (1-33%) Small (1-33%) -Necrotic Tissue Type Adherent Slough Adherent Slough -Structure Exposed N/A -Texture (Sheba-wound Skin Appearance) Assessed, Scarring Scarring -Moisture (Sheba-wound Skin Appearance) No Abnormality, No Abnormality Assessed -Color (Sheba-wound Skin Appearance) No Abnormality, Hemosiderin Assessed Staining -Temperature (Sheba-wound Skin No Abnormality No Abnormality Appearance) (Pt Warm) (Pt Warm) -Tenderness on Palpation (Sheba-wound No Skin Appearance) -Ulcer Cleansing Rinsed/ Rinsed/ Irrigated with Irrigated with Saline Saline -Foul Odor after Cleansing No No -Anesthetic Used 5% Lidocaine 4% Lidocaine Gel Solution Right Calf (cm) 42.5 Right Ankle (cm) 22.8 Left Calf (cm) 42.5 Left Ankle (cm) 24.2 - Nurse 2 - General Ulcer CM Notes Start: 06/03/22 11:04 Freq: Status: Active Protocol: Activity Type Activity Date Activity User E-sign Co-sign Detail Recorded Client Recorded Date Recorded By Document 06/03/22 12:04 PUSHPA [id number] 06/03/22 12:07 PUSHPA Document 06/07/22 14:47 KAITLIN [id number] 06/07/22 14:51 KAITLIN 06/03/22 06/07/22 12:04 14:47 Wound Center Nurse 2 #2 left farias -Time 11:11 14:47 -Correct Patient Yes Yes -Correct Side, Site, Position Yes Yes -Correct Procedure Yes Yes -Procedure Performed Yes Yes -Type of Procedure Debridement Debridement -Clinical Debridement Subcutaneous Subcutaneous -Tissue Removed Subcutaneous Subcutaneous -Post Debridement (cm) - Length 5.4 5.4 -Post Debridement (cm) - Width 4.2 4.3 -Post Debridement (cm) - Depth 0.1 0.2 -Total Square (Post) (cm) 22.68 23.22 -Area of Debridement (cm) - Length 5.4 5.4 -Area of Debridement (cm) - Width 4.2 4.3 -Total Square (Area) (cm) 22.68 23.22 -Tunneling No No -Undermining/Tunneling No No -Circular Undermining No No -Wound/Ulcer Outcome Not Healed Not Healed -Ulcer Cleansing Rinsed/ Rinsed/ Irrigated with Irrigated with Saline Saline -Foul Odor after Cleansing No No -Bioengineered Tissue No No -Bleeding Controlled with Pressure Pressure -Treatment Response Procedure Procedure Tolerated Well Tolerated Well -Offloading No -Debridement - Subq, 1st 20sq cm Yes Yes -Debridement, SubQ, ea addt'l 20sq cm 1 1 or part thereof #1 right farias -Time 11:11 14:50 -Correct Patient Yes Yes -Correct Side, Site, Position Yes Yes -Correct Procedure Yes Yes -Procedure Performed Yes Yes -Type of Procedure Debridement Debridement -Clinical Debridement Subcutaneous Subcutaneous -Tissue Removed Subcutaneous Subcutaneous -Post Debridement (cm) - Length 0.7 0.5 -Post Debridement (cm) - Width 0.5 0.5 -Post Debridement (cm) - Depth 0.3 0.3 -Total Square (Post) (cm) 0.35 0.25 -Area of Debridement (cm) - Length 0.7 0.5 -Area of Debridement (cm) - Width 0.5 0.5 -Total Square (Area) (cm) 0.35 0.25 -Tunneling No No -Undermining/Tunneling No No -Circular Undermining No No -Wound/Ulcer Outcome Not Healed Not Healed -Ulcer Cleansing Rinsed/ Rinsed/ Irrigated with Irrigated with Saline Saline -Foul Odor after Cleansing No No -Bioengineered Tissue No No -Bleeding Controlled with Pressure Pressure -Treatment Response Procedure Procedure Tolerated Well Tolerated Well -Offloading No -Debridement - Subq, 1st 20sq cm No No Pain Scale: 0-10 Numeric Is Patient Pain Free? Yes Yes WC - Nurse 3 - General Ulcer D/C NN Start: 06/03/22 11:04 Freq: Status: Active Protocol: Activity Type Activity Date Activity User E-sign Co-sign Detail Recorded Client Recorded Date Recorded By Document 06/03/22 11:25 LINDSEY [id number] 06/03/22 11:26 KR Document 06/07/22 15:09 [facility] [id number] 06/07/22 15:10 BMF 06/03/22 06/07/22 11:25 15:09 Wound Care Nurse 3 #2 left farias -Ulcer Cleansing Rinsed/ Rinsed/ Irrigated with Irrigated with Saline Saline -Foul Odor after Cleansing No -Primary Dressing Applied C Hydrogel ($) Other -Other Dressing HYDROGEL -Primary Dressing Covered/Secured with Dry Gauze, Dry Gauze & Secured with Roll Gauze, Tape Secured with Tape #1 right farias -Ulcer Cleansing Rinsed/ Irrigated with Saline -Foul Odor after Cleansing No -Primary Dressing Applied C Hydrogel ($) Other -Other Dressing HYDROGEL -Primary Dressing Covered/Secured with Dry Gauze, Dry Gauze & Secured with Roll Gauze, Tape Secured with Tape Right -Compression Wrap Steve Wrap Steve Wrap Left -Compression Wrap Steve Wrap Steve Wrap Treatment Response Procedure Tolerated Well Pain Scale: 0-10 Numeric Is Patient Pain Free? Yes Yes WC - Visit Discharge Discharge Condition Stable Stable Ambulatory Status Ambulatory Wheelchair Transportation Private Auto Private Auto Accompanied by son Additional Wound Wound debrided: Anterior leg ulcer Laterality: Left Type of Debridement: Excisional debridement Anesthesia Used: 5% Lidocaine Gel Depth: Down to and including healthy tissue and in the subcutaneous layer Percentage of wound debrided: 100 Instrument Used: 5mm curette Tissue Removed: Devitalized tissue and slough Severity: Fat Layer Exposed Amount of bleeding with debridement: Mild Bleeding Controlled with: Compression and gauze Patient tolerated procedure: Patient tolerated procedure well Assessment/Plan Assessment/Plan (1) Ulcer of left lower extremity with fat layer exposed: CODE(S): L97.922 - Non-pressure chronic ulcer of unspecified part of left lower leg with fat layer exposed (2) Wound of right lower extremity: CODE(S): S81.801A - Unspecified open wound, right lower leg, initial encounter (3) Edema of both lower legs: CODE(S): R60.0 - Localized edema (4) Chronic anticoagulation: CODE(S): Z79.01 - terminal worker (current) use of anticoagulants (5) On home oxygen therapy: CODE(S): Z99.81 - Dependence on supplemental oxygen (6) Atrial fibrillation: CODE(S): I48.91 - Unspecified atrial fibrillation PLAN: Plan Patient was seen and evaluated today at the wound center and a subcutaneous debridement was performed as documented. Wound culture obtained on 05/27/22 Staphylococcus epidermidis, Corynebacterium jeikeium, Corynebacterium amycolatum. She was started on Augmentin and a probiotic. Wound care - Left leg ulcer and right leg wound Santyl nickel thickness covered with gauze daily. She should wash the wounds with soap and water daily. Place STEVE wrap on bilateral lower legs to help with compression. Will order vascular studies of bilateral lower extremities. Because her vascular studies are not scheduled until the end of June, she will come in before her appointment next week for ABIs in the office so we can determine how much compression she can have. Encouraged patient to try sleeping flat to help with edema, but she states she needs to sleep in her chair to help her breathe. Keep legs elevated when seated. Encouraged high protein diet and Vitamin C 1,000 mg intake daily to help with wound healing. Follow up one week. Call or come in sooner if have any questions or concerns.
--- NOTE | 2022-06-14 16:11 | PCM.WC.PN ---
History of Present Illness Date of Service: 06/14/22 Chief Complaint: Left leg wound and right anterior leg wound History of Wound: Left leg wound occurred the end of March when she getting into a Jeep, she scraped her leg along the side of the vehicle. She went to her PCP who had her placing silvadene cream topped with telfa dressing on the wound. In April she dropped her Ipad and it hit her right anterior leg and left an open wound, which has been draining quite a bit of clear drainage. She has a history of pulmonary fibrosis and is on oxygen at night time and PRN, Afib on warfarin, CKD stage 3, HTN, hypothyroidism, hyperlipidemia, aortic valve regurgitation, and bilateral knee replacements. She does sleep in a chair. Wound care - left anterior leg ulcer and right anterior leg wound Santyl nickel thickness covered with gauze daily. STEVE wrap for compression. Wound culture obtained on Staphylococcus epidermidis, Corynebacterium jeikeium, Corynebacterium amycolatum and she is being treated with Augmentin and a probiotic. STEVE wrap for compression. JESU's done in the office today, 06/14/22 and they are both non compressible. She denies any fever, chills, nausea or vomiting. Progress of Wound: Right anterior leg ulcer and left anterior leg ulcer are slightly improved. Compression has helped decrease her edema. Objective Data Objective Data Vital Signs: Vital Signs Temp Pulse Resp BP 97.4 F L 95 22 H 159/72 H 06/07/22 14:21 06/07/22 14:21 06/07/22 14:21 06/07/22 14:21 Charges/Coding Procedures Integumentary [id number]: [id number] Clair subq tissue 20 sq cm/< Physical Exam Const alert and oriented x3 General Appearance: cooperative HEENT normocephalic Resp normal respiratory effort Effort and Inspection: able to speak in complete sentences Cardio regular rate Cardio Narrative: bilateral lower extremity edema is much improved with compression +1-+2 to proximal leg then it increases to +2-+3 edema around her knees bilaterally. Peripheral Pulses: dorsalis pedis pulses present bilateral 1+ Extremity normal capillary refill General Extremity: edema bilateral lower extremity (+3) Details: severe Peripheral Pulses: Yes dorsalis pedis pulses present bilateral 1+ Skin Wound Narrative: Left leg wound with fibrous tissue in the base. It is showing improvement. Right anterior leg ulcer is small and base is beefy pink. Neuro oriented x3 Psych affect normal Appearance: appropriate Debridement Note Debridement Note Wound debrided: Anterior leg ulcer Laterality: Right Type of Debridement: Excisional debridement Anesthesia Used: 4% Lidocaine Solution and 5% Lidocaine Gel Depth: Down to and including healthy tissue and in the subcutaneous layer Percentage of wound debrided: 100 Instrument Used: - (1 mm curette) Tissue Removed: Devitalized tissue and slough Severity: Fat Layer Exposed Amount of bleeding with debridement: Mild Bleeding Controlled with: Compression and gauze Patient tolerated procedure: Patient tolerated procedure well Post-Debridement Measurements and Additional Note: Post-Debridement Measurements/Treatment - Nurse 1 - General Ulcer Assessment Start: 06/03/22 11:04 Freq: Status: Active Protocol: FIDELINA Activity Type Activity Date Activity User E-sign Co-sign Detail Recorded Client Recorded Date Recorded By Document 06/03/22 11:04 AK [id number] 06/03/22 11:07 AK Document 06/07/22 14:21 DL [id number] 06/07/22 14:31 DL 06/03/22 06/07/22 11:04 14:21 - Today's Visit Information Type of service Follow-up Visit Follow-up Visit (Physician/RESEARCH TECHNOLOGIST (Physician/RESEARCH TECHNOLOGIST ) ) Arrival Mode Ambulatory Ambulatory, Wheelchair Transfer Assistance Manual Transfer Assist (Other) x1 Patient Identification Verified (Name & Yes Yes ) Patient Requires Transmission-Based No Precautions Vital Signs Temperature (97.8 F-99.1 F) 97.0 F L 97.4 F L Temperature Source Temporal Temporal Pulse Rate (60-100) 77 95 Pulse Location Monitor Monitor Respiratory Rate (12-18) 22 H Respiratory rate source Observation Blood Pressure (90/60-120/80) 153/73 H 159/72 H Blood Pressure Mean (mm Hg) 99 101 Source Monitor Monitor Position Semi-Fowlers Blood Pressure Location Right Arm History Since Last Visit- (Skip if this is Patient's initial visit) Have you changed medications since your No No last visit? Any new allergies or adverse reactions No No Had a fall/change in ADL's that may No No increase risk of falls Signs or symptoms of abuse and/or No No neglect since last visit Have you been in the hospital since your No No last visit? Has dressing in place as prescribed Yes Yes Has compression in place as prescribed N/A Yes Has offloadiing in place as prescribed N/A N/A Experienced any changes in pain level or No No management Left Footwear Regular Shoe Right Footwear Regular Shoe Pain Scale: 0-10 Numeric Is Patient Pain Free? Yes Yes WC - Nurse 1 - General Ulcer Measurement Start: 06/03/22 11:04 Freq: Status: Active Protocol: Activity Type Activity Date Activity User E-sign Co-sign Detail Recorded Client Recorded Date Recorded By Document 06/03/22 11:04 AK [id number] 06/03/22 11:07 AK Document 06/07/22 14:21 DL [id number] 06/07/22 14:31 DL 06/03/22 06/07/22 11:04 14:21 Wound Center Nurse 1 #2 left farias -Current Size (cm) - Length 4.6 5 -Current Size (cm) - Width 3.4 4.1 -Current Size (cm) - Depth 0.1 0.1 -Total Square Cm 15.64 20.5 -Photo Taken No -Exudate Amt Small Medium -Exudate Type Serosanguineous Serosanguineous -Wound Margin Distinct, Distinct, Outline Outline Attached Attached -Granulation Amt Medium (34-66%) Medium (34-66%) -Granulation Quality [place],Red -Necrosis Amt Small (1-33%) Medium (34-66%) -Necrotic Tissue Type Adherent Slough Adherent Slough -Structure Exposed N/A -Texture (Sheba-wound Skin Appearance) Assessed, Scarring Scarring -Moisture (Sheba-wound Skin Appearance) No Abnormality, No Abnormality Assessed -Color (Sheba-wound Skin Appearance) No Abnormality, Hemosiderin Assessed Staining -Temperature (Sheba-wound Skin No Abnormality No Abnormality Appearance) (Pt Warm) (Pt Warm) -Tenderness on Palpation (Sheba-wound No Skin Appearance) -Ulcer Cleansing Rinsed/ Rinsed/ Irrigated with Irrigated with Saline Saline -Foul Odor after Cleansing No No -Anesthetic Used 5% Lidocaine 4% Lidocaine Gel Solution #1 right farias -Current Size (cm) - Length 0.5 0.6 -Current Size (cm) - Width 0.7 0.5 -Current Size (cm) - Depth 0.2 0.4 -Total Square Cm 0.35 0.30 -Photo Taken No -Maximum Distance #2 (cm) 0.1 -Circular Undermining Yes -Exudate Amt Small Small -Exudate Type Serosanguineous Serosanguineous -Wound Margin Distinct, Thickened & Outline Rolled Under Attached -Granulation Amt Medium (34-66%) Small (1-33%) -Granulation Quality [place] Red -Necrosis Amt Small (1-33%) Small (1-33%) -Necrotic Tissue Type Adherent Slough Adherent Slough -Structure Exposed N/A -Texture (Sheba-wound Skin Appearance) Assessed, Scarring Scarring -Moisture (Sheba-wound Skin Appearance) No Abnormality, No Abnormality Assessed -Color (Sheba-wound Skin Appearance) No Abnormality, Hemosiderin Assessed Staining -Temperature (Sheba-wound Skin No Abnormality No Abnormality Appearance) (Pt Warm) (Pt Warm) -Tenderness on Palpation (Sheba-wound No Skin Appearance) -Ulcer Cleansing Rinsed/ Rinsed/ Irrigated with Irrigated with Saline Saline -Foul Odor after Cleansing No No -Anesthetic Used 5% Lidocaine 4% Lidocaine Gel Solution Right Calf (cm) 42.5 Right Ankle (cm) 22.8 Left Calf (cm) 42.5 Left Ankle (cm) 24.2 WC - Nurse 2 - General Ulcer CM Notes Start: 06/03/22 11:04 Freq: Status: Active Protocol: Activity Type Activity Date Activity User E-sign Co-sign Detail Recorded Client Recorded Date Recorded By Document 06/03/22 12:04 [id number] 06/03/22 12:07 Document 06/07/22 14:47 [id number] 06/07/22 14:51 Document 06/14/22 15:25 [id number] 06/14/22 15:29 06/03/22 06/07/22 06/14/22 12:04 14:47 15:25 Wound Center Nurse 2 #2 left farias -Time 11:11 14:47 15:26 -Correct Patient Yes Yes Yes -Correct Side, Site, Position Yes Yes Yes -Correct Procedure Yes Yes Yes -Procedure Performed Yes Yes Yes -Type of Procedure Debridement Debridement Debridement -Clinical Debridement Subcutaneous Subcutaneous Subcutaneous -Tissue Removed Subcutaneous Subcutaneous Subcutaneous -Post Debridement (cm) - Length 5.4 5.4 5.0 -Post Debridement (cm) - Width 4.2 4.3 3.0 -Post Debridement (cm) - Depth 0.1 0.2 0.1 -Total Square (Post) (cm) 22.68 23.22 15.00 -Area of Debridement (cm) - Length 5.4 5.4 5.0 -Area of Debridement (cm) - Width 4.2 4.3 3.0 -Total Square (Area) (cm) 22.68 23.22 15.00 -Tunneling No No No -Undermining/Tunneling No No No -Circular Undermining No No No -Wound/Ulcer Outcome Not Healed Not Healed Not Healed -Ulcer Cleansing Rinsed/ Rinsed/ Rinsed/ Irrigated with Irrigated with Irrigated with Saline Saline Saline -Foul Odor after Cleansing No No No -Bioengineered Tissue No No No -Bleeding Controlled with Pressure Pressure NA -Treatment Response Procedure Procedure Procedure Tolerated Well Tolerated Well Tolerated Well -Offloading No No -Debridement - Subq, 1st 20sq cm Yes Yes Yes -Debridement, SubQ, ea addt'l 20sq cm 1 1 or part thereof #1 right farias -Time 11:11 14:50 15:26 -Correct Patient Yes Yes Yes -Correct Side, Site, Position Yes Yes Yes -Correct Procedure Yes Yes Yes -Procedure Performed Yes Yes Yes -Type of Procedure Debridement Debridement Debridement -Clinical Debridement Subcutaneous Subcutaneous Subcutaneous -Tissue Removed Subcutaneous Subcutaneous Subcutaneous -Post Debridement (cm) - Length 0.7 0.5 0.3 -Post Debridement (cm) - Width 0.5 0.5 0.5 -Post Debridement (cm) - Depth 0.3 0.3 0.2 -Total Square (Post) (cm) 0.35 0.25 0.15 -Area of Debridement (cm) - Length 0.7 0.5 0.3 -Area of Debridement (cm) - Width 0.5 0.5 0.5 -Total Square (Area) (cm) 0.35 0.25 0.15 -Tunneling No No No -Undermining/Tunneling No No No -Circular Undermining No No No -Wound/Ulcer Outcome Not Healed Not Healed Not Healed -Ulcer Cleansing Rinsed/ Rinsed/ Rinsed/ Irrigated with Irrigated with Irrigated with Saline Saline Saline -Foul Odor after Cleansing No No No -Bioengineered Tissue No No No -Bleeding Controlled with Pressure Pressure Pressure -Treatment Response Procedure Procedure Procedure Tolerated Well Tolerated Well Tolerated Well -Offloading No No -Debridement - Subq, 1st 20sq cm No No No Pain Scale: 0-10 Numeric Is Patient Pain Free? Yes Yes Yes - Nurse 3 - General Ulcer D/C NN Start: 06/03/22 11:04 Freq: Status: Active Protocol: Activity Type Activity Date Activity User E-sign Co-sign Detail Recorded Client Recorded Date Recorded By Document 06/03/22 11:25 [id number] 06/03/22 11:26 KR Document 06/07/22 15:09 [facility] [id number] 06/07/22 15:10 [facility] Document 06/14/22 15:55 [facility] [id number] 06/14/22 15:56 [facility] 06/03/22 06/07/22 06/14/22 11:25 15:09 15:55 Wound Care Nurse 3 #2 left farias -Ulcer Cleansing Rinsed/ Rinsed/ Rinsed/ Irrigated with Irrigated with Irrigated with Saline Saline Saline -Foul Odor after Cleansing No No -Primary Dressing Applied C Hydrogel ($) Other Other -Other Dressing HYDROGEL SANTYL; DRSG PER DL TURRET PRESS OPERATOR -Primary Dressing Covered/Secured with Dry Gauze, Dry Gauze & Dry Gauze & Secured with Roll Gauze, Roll Gauze, Tape Secured with Secured with Tape Tape #1 right farias -Ulcer Cleansing Rinsed/ Rinsed/ Irrigated with Irrigated with Saline Saline -Foul Odor after Cleansing No No -Primary Dressing Applied C Hydrogel ($) Other Other -Other Dressing HYDROGEL SANTYL; DRSG PER DL TURRET PRESS OPERATOR -Primary Dressing Covered/Secured with Dry Gauze, Dry Gauze & Dry Gauze & Secured with Roll Gauze, Roll Gauze, Tape Secured with Secured with Tape Tape Right -Compression Wrap Steve Wrap Steve Wrap Steve Wrap Left -Compression Wrap Steve Wrap Steve Wrap Steve Wrap Treatment Response Procedure Procedure Tolerated Well Tolerated Well Pain Scale: 0-10 Numeric Is Patient Pain Free? Yes Yes Yes WC - Visit Discharge Discharge Condition Stable Stable Stable Ambulatory Status Ambulatory Wheelchair Ambulatory, Walker Transportation Private Auto Private Auto Private Auto Accompanied by son SON Facility Type Home Health Additional Wound Wound debrided: Anterior leg ulcer Laterality: Left Type of Debridement: Excisional debridement Anesthesia Used: 5% Lidocaine Gel Depth: Down to and including healthy tissue and in the subcutaneous layer Percentage of wound debrided: 100 Instrument Used: 5mm curette Tissue Removed: Devitalized tissue and slough Severity: Fat Layer Exposed Amount of bleeding with debridement: Mild Bleeding Controlled with: Compression and gauze Patient tolerated procedure: Patient tolerated procedure well Assessment/Plan Assessment/Plan (1) Ulcer of left lower extremity with fat layer exposed: CODE(S): L97.922 - Non-pressure chronic ulcer of unspecified part of left lower leg with fat layer exposed (2) Wound of right lower extremity: CODE(S): S81.801A - Unspecified open wound, right lower leg, initial encounter (3) Edema of both lower legs: CODE(S): R60.0 - Localized edema (4) Chronic anticoagulation: CODE(S): Z79.01 - halfway (current) use of anticoagulants (5) On home oxygen therapy: CODE(S): Z99.81 - Dependence on supplemental oxygen (6) Atrial fibrillation: CODE(S): I48.91 - Unspecified atrial fibrillation PLAN: Plan Patient was seen and evaluated today at the wound center and a subcutaneous debridement was performed as documented. Wound culture obtained on 05/27/22 Staphylococcus epidermidis, Corynebacterium jeikeium, Corynebacterium amycolatum. She was started on Augmentin and a probiotic. Wound care - Left leg ulcer and right leg wound Santyl nickel thickness covered with gauze daily. She should wash the wounds with soap and water daily. Place STEVE wrap on bilateral lower legs to help with compression. We did JESU's in the office today and her vessels are non compressible. Therefore, we will continue to use STEVE wraps for compression and wait for her formal arterial studies that are scheduled at the end of June. Vascular studies of bilateral lower extremities ordered and scheduled at the end of June. Encouraged patient to try sleeping flat to help with edema, but she states she needs to sleep in her chair to help her breathe. Keep legs elevated when seated. Encouraged high protein diet and Vitamin C 1,000 mg intake daily to help with wound healing. Follow up one week. Call or come in sooner if have any questions or concerns.
[2022-06-22 13:56] VITALS: BP 153/117; PULSE 79; TEMP 35.7
--- NOTE | 2022-06-22 15:58 | PN.PCM_ITS ---
History of Present Illness Date of Service: 06/22/22 Chief Complaint: Left leg wound and right anterior leg wound History of Wound: Left leg wound occurred the end of March when she getting into a Jeep, she scraped her leg along the side of the vehicle. She went to her PCP who had her placing silvadene cream topped with telfa dressing on the wound. In April she dropped her Ipad and it hit her right anterior leg and left an open wound, which has been draining quite a bit of clear drainage. She has a history of pulmonary fibrosis and is on oxygen at night time and PRN, Afib on warfarin, CKD stage 3, HTN, hypothyroidism, hyperlipidemia, aortic valve regurgitation, and bilateral knee replacements. She does sleep in a chair. Wound care - left anterior leg ulcer and right anterior leg wound Santyl nickel thickness covered with gauze daily. STEVE wrap for compression. Wound culture obtained on Staphylococcus epidermidis, Corynebacterium jeikeium, Corynebacterium amycolatum and she was treated with Augmentin and a probiotic. STEVE wrap for compression. JESU's done in the office today, 06/14/22 and they are both non compressible. She denies any fever, chills, nausea or vomiting. Progress of Wound: Right anterior leg ulcer and left anterior leg ulcer are slightly improved. Compression has helped decrease her edema. Objective Data Objective Data Vital Signs: Vital Signs Temp Pulse Resp BP 96.3 F L 79 22 H 153/117 H 06/22/22 13:56 06/22/22 13:56 06/07/22 14:21 06/22/22 13:56 Charges/Coding Procedures Integumentary [id number]: [id number] Clari subq tissue 20 sq cm/< Physical Exam Const alert and oriented x3 General Appearance: cooperative HEENT normocephalic Resp normal respiratory effort Effort and Inspection: able to speak in complete sentences Cardio regular rate Cardio Narrative: bilateral lower extremity edema is much improved with compression +1-+2 to proximal leg then it increases to +2-+3 edema around her knees bilaterally. Peripheral Pulses: dorsalis pedis pulses present bilateral 1+ Extremity normal capillary refill General Extremity: edema bilateral lower extremity (+3) Details: severe Peripheral Pulses: Yes dorsalis pedis pulses present bilateral 1+ Skin Wound Narrative: Left leg wound with fibrous tissue in the base. It is showing improvement. Right anterior leg ulcer is smaller in size. Neuro oriented x3 Psych affect normal Appearance: appropriate Debridement Note Debridement Note Post-Debridement Measurements and Additional Note: Post-Debridement Measurements/Treatment - Nurse 1 - General Ulcer Assessment Start: 06/03/22 11:04 Freq: Status: Active Protocol: TONET Activity Type Activity Date Activity User E-sign Co-sign Detail Recorded Client Recorded Date Recorded By Document 06/03/22 11:04 AK [id number] 06/03/22 11:07 AK Document 06/07/22 14:21 DL [id number] 06/07/22 14:31 DL Document 06/22/22 13:56 KR [id number] 06/22/22 14:01 KR 06/03/22 06/07/22 06/22/22 11:04 14:21 13:56 - Today's Visit Information Type of service Follow-up Visit Follow-up Visit Follow-up Visit (Physician/WELDER REPAIR (Physician/WELDER REPAIR (Physician/WELDER REPAIR ) ) ) Arrival Mode Ambulatory Ambulatory, Wheelchair Wheelchair Transfer Assistance Manual Transfer Assist (Other) x1 Patient Identification Verified (Name & Yes Yes Yes ) Patient Requires Transmission-Based No Precautions Vital Signs Temperature (97.8 F-99.1 F) 97.0 F L 97.4 F L 96.3 F L Temperature Source Temporal Temporal Temporal Pulse Rate (60-100) 77 95 79 Pulse Location Monitor Monitor Monitor Respiratory Rate (12-18) 22 H Respiratory rate source Observation Blood Pressure (90/60-120/80) 153/73 H 159/72 H 153/117 H Blood Pressure Mean (mm Hg) 99 101 129 Source Monitor Monitor Monitor Position Semi-Fowlers Semi-Fowlers Blood Pressure Location Right Arm Right Arm History Since Last Visit- (Skip if this is Patient's initial visit) Have you changed medications since your No No No last visit? Any new allergies or adverse reactions No No No Had a fall/change in ADL's that may No No No increase risk of falls Signs or symptoms of abuse and/or No No No neglect since last visit Have you been in the hospital since your No No No last visit? Has dressing in place as prescribed Yes Yes Yes Has compression in place as prescribed N/A Yes Yes Has offloadiing in place as prescribed N/A N/A N/A Experienced any changes in pain level or No No No management Left Footwear Regular Shoe Regular Shoe Right Footwear Regular Shoe Regular Shoe Pain Scale: 0-10 Numeric Is Patient Pain Free? Yes Yes Yes WC - Nurse 1 - General Ulcer Measurement Start: 06/03/22 11:04 Freq: Status: Active Protocol: Activity Type Activity Date Activity User E-sign Co-sign Detail Recorded Client Recorded Date Recorded By Document 06/03/22 11:04 AK [id number] 06/03/22 11:07 AK Document 06/07/22 14:21 DL [id number] 06/07/22 14:31 DL Document 06/22/22 13:56 KR [id number] 06/22/22 14:01 KR 06/03/22 06/07/22 06/22/22 11:04 14:21 13:56 Wound Center Nurse 1 #2 left farias -Current Size (cm) - Length 4.6 5 0.1 -Current Size (cm) - Width 3.4 4.1 0.1 -Current Size (cm) - Depth 0.1 0.1 0.1 -Total Square Cm 15.64 20.5 0.01 -Photo Taken No -Exudate Amt Small Medium Small -Exudate Type Serosanguineous Serosanguineous Serosanguineous -Wound Margin Distinct, Distinct, Distinct, Outline Outline Outline Attached Attached Attached -Granulation Amt Medium (34-66%) Medium (34-66%) None Present (0 %) -Granulation Quality Pathfork Pathfork,Red -Necrosis Amt Small (1-33%) Medium (34-66%) None Present (0 %) -Necrotic Tissue Type Adherent Slough Adherent Slough -Structure Exposed N/A -Texture (Sheba-wound Skin Appearance) Assessed, Scarring Assessed, Scarring Scarring -Moisture (Sheba-wound Skin Appearance) No Abnormality, No Abnormality No Abnormality, Assessed Assessed -Color (Sheba-wound Skin Appearance) No Abnormality, Hemosiderin No Abnormality, Assessed Staining Assessed -Temperature (Sheba-wound Skin No Abnormality No Abnormality No Abnormality Appearance) (Pt Warm) (Pt Warm) (Pt Warm) -Tenderness on Palpation (Sheba-wound No No Skin Appearance) -Ulcer Cleansing Rinsed/ Rinsed/ Rinsed/ Irrigated with Irrigated with Irrigated with Saline Saline Saline -Foul Odor after Cleansing No No No -Anesthetic Used 5% Lidocaine 4% Lidocaine 5% Lidocaine Gel Solution Gel #1 right farias -Current Size (cm) - Length 0.5 0.6 4 -Current Size (cm) - Width 0.7 0.5 2.5 -Current Size (cm) - Depth 0.2 0.4 0.2 -Total Square Cm 0.35 0.30 10.0 -Photo Taken No -Maximum Distance #2 (cm) 0.1 -Circular Undermining Yes -Exudate Amt Small Small Medium -Exudate Type Serosanguineous Serosanguineous Serosanguineous -Wound Margin Distinct, Thickened & Distinct, Outline Rolled Under Outline Attached Attached -Granulation Amt Medium (34-66%) Small (1-33%) Medium (34-66%) -Granulation Quality Path[place] Red Red -Necrosis Amt Small (1-33%) Small (1-33%) Medium (34-66%) -Necrotic Tissue Type Adherent Slough Adherent Slough Adherent Slough -Structure Exposed N/A -Texture (Sheba-wound Skin Appearance) Assessed, Scarring Assessed, Scarring Scarring -Moisture (Sheba-wound Skin Appearance) No Abnormality, No Abnormality No Abnormality, Assessed Assessed -Color (Sheba-wound Skin Appearance) No Abnormality, Hemosiderin No Abnormality, Assessed Staining Assessed -Temperature (Sheba-wound Skin No Abnormality No Abnormality No Abnormality Appearance) (Pt Warm) (Pt Warm) (Pt Warm) -Tenderness on Palpation (Sheba-wound No No Skin Appearance) -Ulcer Cleansing Rinsed/ Rinsed/ Rinsed/ Irrigated with Irrigated with Irrigated with Saline Saline Saline -Foul Odor after Cleansing No No No -Anesthetic Used 5% Lidocaine 4% Lidocaine 5% Lidocaine Gel Solution Gel Right Calf (cm) 42.5 Right Ankle (cm) 22.8 Left Calf (cm) 42.5 Left Ankle (cm) 24.2 WC - Nurse 2 - General Ulcer CM Notes Start: 06/03/22 11:04 Freq: Status: Active Protocol: Activity Type Activity Date Activity User E-sign Co-sign Detail Recorded Client Recorded Date Recorded By Document 06/03/22 12:04 PUSHPA [id number] 06/03/22 12:07 PL Document 06/07/22 14:47 [id number] 06/07/22 14:51 Document 06/14/22 15:25 [id number] 06/14/22 15:29 Document 06/22/22 14:26 [id number] 06/22/22 14:31 MW 06/03/22 06/07/22 06/14/22 12:04 14:47 15:25 Wound Center Nurse 2 #2 left farias -Time 11:11 14:47 15:26 -Correct Patient Yes Yes Yes -Correct Side, Site, Position Yes Yes Yes -Correct Procedure Yes Yes Yes -Procedure Performed Yes Yes Yes -Type of Procedure Debridement Debridement Debridement -Clinical Debridement Subcutaneous Subcutaneous Subcutaneous -Tissue Removed Subcutaneous Subcutaneous Subcutaneous -Post Debridement (cm) - Length 5.4 5.4 5.0 -Post Debridement (cm) - Width 4.2 4.3 3.0 -Post Debridement (cm) - Depth 0.1 0.2 0.1 -Total Square (Post) (cm) 22.68 23.22 15.00 -Area of Debridement (cm) - Length 5.4 5.4 5.0 -Area of Debridement (cm) - Width 4.2 4.3 3.0 -Total Square (Area) (cm) 22.68 23.22 15.00 -Tunneling No No No -Undermining/Tunneling No No No -Circular Undermining No No No -Wound/Ulcer Outcome Not Healed Not Healed Not Healed -Ulcer Cleansing Rinsed/ Rinsed/ Rinsed/ Irrigated with Irrigated with Irrigated with Saline Saline Saline -Foul Odor after Cleansing No No No -Bioengineered Tissue No No No -Bleeding Controlled with Pressure Pressure NA -Treatment Response Procedure Procedure Procedure Tolerated Well Tolerated Well Tolerated Well -Offloading No No -Debridement - Subq, 1st 20sq cm Yes Yes Yes -Debridement, SubQ, ea addt'l 20sq cm 1 1 or part thereof #1 right farias -Time 11:11 14:50 15:26 -Correct Patient Yes Yes Yes -Correct Side, Site, Position Yes Yes Yes -Correct Procedure Yes Yes Yes -Procedure Performed Yes Yes Yes -Type of Procedure Debridement Debridement Debridement -Clinical Debridement Subcutaneous Subcutaneous Subcutaneous -Tissue Removed Subcutaneous Subcutaneous Subcutaneous -Post Debridement (cm) - Length 0.7 0.5 0.3 -Post Debridement (cm) - Width 0.5 0.5 0.5 -Post Debridement (cm) - Depth 0.3 0.3 0.2 -Total Square (Post) (cm) 0.35 0.25 0.15 -Area of Debridement (cm) - Length 0.7 0.5 0.3 -Area of Debridement (cm) - Width 0.5 0.5 0.5 -Total Square (Area) (cm) 0.35 0.25 0.15 -Tunneling No No No -Undermining/Tunneling No No No -Circular Undermining No No No -Wound/Ulcer Outcome Not Healed Not Healed Not Healed -Ulcer Cleansing Rinsed/ Rinsed/ Rinsed/ Irrigated with Irrigated with Irrigated with Saline Saline Saline -Foul Odor after Cleansing No No No -Bioengineered Tissue No No No -Bleeding Controlled with Pressure Pressure Pressure -Treatment Response Procedure Procedure Procedure Tolerated Well Tolerated Well Tolerated Well -Offloading No No -Debridement - Subq, 1st 20sq cm No No No Pain Scale: 0-10 Numeric Is Patient Pain Free? Yes Yes Yes 06/22/22 14:26 Wound Center Nurse 2 #2 left farias -Time 14:27 -Correct Patient Yes -Correct Side, Site, Position Yes -Correct Procedure Yes -Procedure Performed Yes -Type of Procedure Debridement -Clinical Debridement Subcutaneous -Tissue Removed Subcutaneous -Post Debridement (cm) - Length 4.7 -Post Debridement (cm) - Width 2.5 -Post Debridement (cm) - Depth 0.1 -Total Square (Post) (cm) 11.75 -Area of Debridement (cm) - Length 4.7 -Area of Debridement (cm) - Width 2.5 -Total Square (Area) (cm) 11.75 -Tunneling No -Undermining/Tunneling No -Circular Undermining No -Wound/Ulcer Outcome Not Healed -Ulcer Cleansing Rinsed/ Irrigated with Saline -Foul Odor after Cleansing No -Bioengineered Tissue No -Bleeding Controlled with Pressure -Treatment Response Procedure Tolerated Well -Offloading No -Debridement - Subq, 1st 20sq cm Yes -Debridement, SubQ, ea addt'l 20sq cm or part thereof #1 right farias -Time 14:27 -Correct Patient Yes -Correct Side, Site, Position Yes -Correct Procedure Yes -Procedure Performed Yes -Type of Procedure Debridement -Clinical Debridement Subcutaneous -Tissue Removed Subcutaneous -Post Debridement (cm) - Length 0.4 -Post Debridement (cm) - Width 0.5 -Post Debridement (cm) - Depth 0.2 -Total Square (Post) (cm) 0.20 -Area of Debridement (cm) - Length 0.4 -Area of Debridement (cm) - Width 0.5 -Total Square (Area) (cm) 0.20 -Tunneling No -Undermining/Tunneling No -Circular Undermining No -Wound/Ulcer Outcome Not Healed -Ulcer Cleansing Rinsed/ Irrigated with Saline -Foul Odor after Cleansing No -Bioengineered Tissue No -Bleeding Controlled with Pressure -Treatment Response Procedure Tolerated Well -Offloading No -Debridement - Subq, 1st 20sq cm Yes Pain Scale: 0-10 Numeric Is Patient Pain Free? Yes WC - Nurse 3 - General Ulcer D/C NN Start: 06/03/22 11:04 Freq: Status: Active Protocol: Activity Type Activity Date Activity User E-sign Co-sign Detail Recorded Client Recorded Date Recorded By Document 06/03/22 11:25 [id number] 06/03/22 11:26 Document 06/07/22 15:09 [facility] [id number] 06/07/22 15:10 [facility] Document 06/14/22 15:55 [facility] [id number] 06/14/22 15:56 [facility] Document 06/22/22 14:56 SD [id number] 06/22/22 14:58 AK 06/03/22 06/07/22 06/14/22 11:25 15:09 15:55 Wound Care Nurse 3 #2 left farias -Ulcer Cleansing Rinsed/ Rinsed/ Rinsed/ Irrigated with Irrigated with Irrigated with Saline Saline Saline -Foul Odor after Cleansing No No -Negative Pressure Wound Therapy -Primary Dressing Applied C Hydrogel ($) Other Other -Other Dressing HYDROGEL SANTYL; DRSG PER DL CUTTER HAND -Primary Dressing Covered/Secured with Dry Gauze, Dry Gauze & Dry Gauze & Secured with Roll Gauze, Roll Gauze, Tape Secured with Secured with Tape Tape #1 right farias -Ulcer Cleansing Rinsed/ Rinsed/ Irrigated with Irrigated with Saline Saline -Foul Odor after Cleansing No No -Negative Pressure Wound Therapy -Primary Dressing Applied C Hydrogel ($) Other Other -Other Dressing HYDROGEL SANTYL; DRSG PER DL CUTTER HAND -Primary Dressing Covered/Secured with Dry Gauze, Dry Gauze & Dry Gauze & Secured with Roll Gauze, Roll Gauze, Tape Secured with Secured with Tape Tape Right -Compression Wrap Steve Wrap Steve Wrap Steve Wrap Left -Compression Wrap Steve Wrap Steve Wrap Steve Wrap Treatment Response Procedure Procedure Tolerated Well Tolerated Well Pain Scale: 0-10 Numeric Is Patient Pain Free? Yes Yes Yes WC - Visit Discharge Discharge Condition Stable Stable Stable Ambulatory Status Ambulatory Wheelchair Ambulatory, Walker Transportation Private Auto Private Auto Private Auto Accompanied by son SON Medication Reconcilliation completed & provided to patient/care provider Clinical Summary of Care Provided Facility Type [facility] 06/22/22 14:56 Wound Care Nurse 3 #2 left farias -Ulcer Cleansing Rinsed/ Irrigated with Saline -Foul Odor after Cleansing No -Negative Pressure Wound Therapy N/A -Primary Dressing Applied -Other Dressing santyl -Primary Dressing Covered/Secured with Dry Gauze & Roll Gauze, Secured with Tape #1 right farias -Ulcer Cleansing Rinsed/ Irrigated with Saline -Foul Odor after Cleansing No -Negative Pressure Wound Therapy N/A -Primary Dressing Applied -Other Dressing santyl -Primary Dressing Covered/Secured with Dry Gauze & Roll Gauze, Secured with Tape Right -Compression Wrap Steve Wrap Left -Compression Wrap Steve Wrap Treatment Response Pain Scale: 0-10 Numeric Is Patient Pain Free? 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 Wound culture obtained on 05/27/22 Staphylococcus epidermidis, Corynebacterium jeikeium, Corynebacterium amycolatum. She was treated with Augmentin and a prob iotic. Wound care - Left leg ulcer and right leg wound Santyl nickel thickness covered with gauze daily. She should wash the wounds with soap and water daily. Place STEVE wrap on bilateral lower legs to help with compression. We did JESU's in the office 06/15/22 which showed her vessels are non compressible. Therefore, we will continue to use STEVE wraps for compression and wait for her formal arterial studies that are scheduled at the end of June. Vascular studies of bilateral lower extremities ordered and scheduled at the end of June. Encouraged patient to try sleeping flat to help with edema, but she states she needs to sleep in her chair to help her breathe. Keep legs elevated when seated. Encouraged high protein diet and Vitamin C 1,000 mg intake daily to help with wound healing. Will try to have home health change her dressing 3 times next week, if they are able to. Follow up two weeks, due to her not having a ride next week. Call or come in sooner if have any questions or concerns.
== END 2022-06-29 23:59 | disposition home or self-care (01) ==
LOC: WC 14:00
PROVIDERS: PCP Family Medicine; Visit Provider Nurse Practitioner Family
DX: L97.822 Non-pressure chronic ulcer of other part of left lower leg with fat layer exposed (principal); L97.812 Non-pressure chronic ulcer of other part of right lower leg with fat layer exposed; I48.91 Unspecified atrial fibrillation; N18.30 Chronic kidney disease, stage 3 unspecified; I12.9 Hypertensive chronic kidney disease with stage 1 through stage 4 chronic kidney disease, or unspecified chronic kidney disease; Z79.01 Long term (current) use of anticoagulants; E78.5 Hyperlipidemia, unspecified; Z99.81 Dependence on supplemental oxygen; R60.0 Localized edema
CPT/HCPCS: 11042; 11045

== ENCOUNTER 2022-07-19 12:26 | Outpatient (RCR) | payer MEDICARE, SELFPAY ==
--- NOTE | 2022-07-19 12:33 | VDLE_ITS ---
Reason For Study: edema RIGHT LEFT CFV is compressible, spontaneous, competent CFV is compressible, spontaneous, competent, and demonstrates pulsatile venous flow. and demonstrates pulsatile venous flow. FV is compressible, spontaneous, competent FV is compressible, spontaneous, competent and demonstrates pulsatile venous flow. and demonstrates pulsatile venous flow. POP V is compressible, spontaneous, competent POP V is compressible, spontaneous, competent and demonstrates pulsatile venous flow. and demonstrates pulsatile venous flow. T/P Trunk is compressible. T/P Trunk is compressible. PTV is compressible. PTV is compressible. RT PerV is compressible. LT PerV is compressible. SFJ is competent and measures .93 cm. SFJ is competent and measures .85 cm. GSV proximal thigh measures .37 x .38 cm. GSV proximal thigh measures .54 x .58 cm. GSV at knee measures .4 x .39 cm. GSV at knee measures .35 x .35 cm. GSV INCOMPETENT throughout for greater than GSV INCOMPETENT throughout for greater than 0.5 seconds. 0.5 seconds. SSV proximal calf is competent and SSV proximal calf is INCOMPETENT for greater measures .37 x .39 cm. than 0.5 seconds and measures .48 x .54 cm. ASV at knee is INCOMPETENT for greater than 0.5 seconds and measures .22 x .24 cm. Dynamics Ax Solution Architect V 10 cm proximal to the medial malleolus is incompetent for greater than .5 seconds. Procedure This is a venous duplex using B-mode, color flow and spectral Doppler. Exam performed in department. The exam was diagnostic. Patient was scanned in reverse Trendelenburg position during reflux assessment. VL/Venous Duplex US - Jeff Extrem Interpretation Summary Deep veins of the lower extremities are bilaterally patent and compressible seg mentally. There is no evidence of deep vein thrombosis on either side. Valvular competence appears in tact within the proximal deep venous systems bilaterally. The great saphenous veins appear bila terally patent and compressible segmentally. Sapheno-femoral junctions are bilaterally competent . Segmental valvular incompetence is noted within the great saphenous veins bilaterally. The right s mall saphenous vein is patent and competent. The left small saphenous vein is patent and incompeten t. The accessory saphenous vein at the right knee is incompetent. An incompetent steep tender vein is noted in the right calf, located 10 centimeters proximal to the right medial malleolus. Puls atile flow is noted in the deep venous system bilaterally, which may be indicative of increased chase tral venous pressure (i.e. congestive heart failure, pulmonary hypertension, etc.). Clinical correla tion is advised. Ordering Physician: Justyna Conley Referring Physician: Justyna Conlye Performed By: Bebo Vera RVT
--- NOTE | 2022-07-19 12:34 | ART_ITS ---
Reason For Study: LE Ulcers Procedure A bilateral lower extremity continuous wave Doppler with analog waveform analysis,segmental pressures,and ankle brachial indexes without exercise. Left Segmental Pressures Left brachial= 171mmHg. Left digit = 131 mmHg. ARTIFICIAL MARBLE WORKER and DPA are noncompressible. The left dorsalis pedis waveforms are biphasic. The left posterior tibial artery waveforms are biphasic. Right Segmental Pressures Right brachial= 181mmHg. Right digit = 141 mmHg. ARTIFICIAL MARBLE WORKER and DPA are noncompressible. The right dorsalis pedis waveforms are triphasic. The right posterior tibial artery waveforms are biphasic. Indices The right digital-brachial index is .78. The left digital-brachial index is .72. VL/Lower Ext Art Exam w/o Exercis Interpretation Summary Biphasic and triphasic Doppler waveforms are noted at ankle level on the right. Biphasic Doppler waveforms are noted at ankle level on the left. Pulse-volume recordings appear satisfactory at all levels bilaterally. Resting ankle-brachial indices could not be determined on e ither side due to the non-compressibility of the vasculature at ankle level bilaterally. Digital-brac hial indices are normal bilaterally. There is evidence of arterial calcification at ankle level bilaterally. There i s no evidence of significant arterial occlusive disease in the lower extremities bilaterally. Ordering Physician: Justyna Conley Performed By: Bebo Vera RVT
== END 2022-07-19 23:59 | disposition home or self-care (01) ==
LOC: WC 12:26
PROVIDERS: PCP Family Medicine; Referring Provider Nurse Practitioner Family; Visit Provider Nurse Practitioner Family
DX: R60.0 Localized edema (principal); I70.238 Atherosclerosis of native arteries of right leg with ulceration of other part of lower leg; I70.248 Atherosclerosis of native arteries of left leg with ulceration of other part of lower leg; L97.819 Non-pressure chronic ulcer of other part of right lower leg with unspecified severity; L97.829 Non-pressure chronic ulcer of other part of left lower leg with unspecified severity
CPT/HCPCS: 93923; 93970

== ENCOUNTER 2022-07-27 13:15 | Outpatient (RCR) | payer MEDICARE, SELFPAY ==
[2022-06-30 00:39] VITALS: BP 153/117; PULSE 79; RESP 22; TEMP 35.7
[2022-07-06 13:33] VITALS: BP 137/74; PULSE 86; TEMP 35.8
--- NOTE | 2022-07-06 16:31 | PN.PCM_ITS ---
History of Present Illness Date of Service: 07/06/22 Chief Complaint: Left leg wound and right anterior leg wound History of Wound: Left leg wound occurred the end of March when she getting into a Jeep, she scraped her leg along the side of the vehicle. She went to her PCP who had her placing silvadene cream topped with telfa dressing on the wound. In April she dropped her Ipad and it hit her right anterior leg and left an open wound, which has been draining quite a bit of clear drainage. She has a history of pulmonary fibrosis and is on oxygen at night time and PRN, Afib on warfarin, CKD stage 3, HTN, hypothyroidism, hyperlipidemia, aortic valve regurgitation, and bilateral knee replacements. She does sleep in a chair. Wound care - left anterior leg ulcer and right anterior leg wound Santyl nickel thickness covered with gauze daily. DERRELL wrap for compression. Wound culture obtained on Staphylococcus epidermidis, Corynebacterium jeikeium, Corynebacterium amycolatum and she was treated with Augmentin and a probiotic. DERRELL wrap for compression. JESU's done in the office today, 06/14/22 and they are both non compressible. She denies any fever, chills, nausea or vomiting. Progress of Wound: Right anterior wound is healed. Left anterior leg ulcer is smaller in size. Objective Data Objective Data Vital Signs: Vital Signs Temp Pulse Resp BP 96.5 F L 86 22 H 137/74 H 07/06/22 13:33 07/06/22 13:33 06/30/22 00:39 07/06/22 13:33 Charges/Coding Procedures Integumentary [id number]: [id number] Clari subq tissue 20 sq cm/< Physical Exam Const alert and oriented x3 General Appearance: cooperative HEENT normocephalic Resp normal respiratory effort Effort and Inspection: able to speak in complete sentences Cardio regular rate Cardio Narrative: bilateral lower extremity edema is much improved with compression +1-+2 to pr oximal leg then it increases to +2-+3 edema around her knees bilaterally. Peripheral Pulses: dorsalis pedis pulses present bilateral 1+ Extremity normal capillary refill General Extremity: edema bilateral lower extremity (+3) Details: severe Peripheral Pulses: Yes dorsalis pedis pulses present bilateral 1+ Skin Wound Narrative: Left leg wound with fibrous tissue in the base is showing improvement and is smaller in size. Right anterior leg ulcer is healed today. Neuro oriented x3 Psych affect normal Appearance: appropriate Debridement Note Debridement Note Wound debrided: Anterior leg ulcer Laterality: Left Type of Debridement: Excisional debridement Anesthesia Used: 5% Lidocaine Gel Depth: Down to and including healthy tissue and in the subcutaneous layer Percentage of wound debrided: 100 Instrument Used: 5mm curette Tissue Removed: Devitalized tissue and slough Severity: Fat Layer Exposed Amount of bleeding with debridement: Mild Bleeding Controlled with: Compression and gauze Patient tolerated procedure: Patient tolerated procedure well Post-Debridement Measurements and Additional Note: Post-Debridement Measurements/Treatment LUCIANO - Nurse 1 - General Ulcer Assessment Start: 07/06/22 13:31 Freq: Status: Active Protocol: FIDELINA Activity Type Activity Date Activity User E-sign Co-sign Detail Recorded Client Recorded Date Recorded By Document 07/06/22 13:33 LINDSEY [id number] 07/06/22 13:37 LINDSEY 07/06/22 13:33 WC - Today's Visit Information Type of service Follow-up Visit (Physician/DIGITAL PRINTER OPERATOR ) Arrival Mode Wheelchair Patient Identification Verified (Name & Yes ) Vital Signs Temperature (97.8 F-99.1 F) 96.5 F L Temperature Source Temporal Pulse Rate (60-100) 86 Pulse Location Monitor Blood Pressure (90/60-120/80) 137/74 H Blood Pressure Mean (mm Hg) 95 Source Monitor Position Sitting Blood Pressure Location Right Arm History Since Last Visit- (Skip if this is Patient's initial visit) Have you changed medications since your No last visit? Any new allergies or adverse reactions No Had a fall/change in ADL's that may No increase risk of falls Signs or symptoms of abuse and/or No neglect since last visit Have you been in the hospital since your No last visit? Has dressing in place as prescribed Yes Has compression in place as prescribed Yes Has offloadiing in place as prescribed N/A Experienced any changes in pain level or No management Left Footwear Regular Shoe Right Footwear Regular Shoe Pain Scale: 0-10 Numeric Is Patient Pain Free? Yes LUCIANO Brewer Nurse 1 - General Ulcer Measurement Start: 07/06/22 13:31 Freq: Status: Active Protocol: Activity Type Activity Date Activity User E-sign Co-sign Detail Recorded Client Recorded Date Recorded By Document 07/06/22 13:33 KR [id number] 07/06/22 13:37 KR 07/06/22 13:33 Wound Center Nurse 1 #1 right farias -Current Size (cm) - Length 0.1 -Current Size (cm) - Width 0.1 -Current Size (cm) - Depth 0.1 -Total Square Cm 0.01 -Wound Margin Distinct, Outline Attached -Texture (Sheba-wound Skin Appearance) No Abnormality, Assessed -Moisture (Sheba-wound Skin Appearance) No Abnormality, Assessed -Color (Hseba-wound Skin Appearance) No Abnormality, Assessed -Temperature (Sheba-wound Skin No Abnormality Appearance) (Pt Warm) -Tenderness on Palpation (Sheba-wound No Skin Appearance) -Ulcer Cleansing Rinsed/ Irrigated with Saline -Foul Odor after Cleansing No #2 left farias -Current Size (cm) - Length 3 -Current Size (cm) - Width 2.3 -Current Size (cm) - Depth 0.1 -Total Square Cm 6.9 -Exudate Amt Medium -Exudate Type Serosanguineous -Wound Margin Distinct, Outline Attached -Granulation Amt Medium (34-66%) -Granulation Quality [place] -Necrosis Amt Medium (34-66%) -Necrotic Tissue Type Adherent Slough -Texture (Sheba-wound Skin Appearance) Assessed, Scarring -Moisture (Sheba-wound Skin Appearance) No Abnormality, Assessed -Color (Sheba-wound Skin Appearance) No Abnormality, Assessed -Temperature (Sheba-wound Skin No Abnormality Appearance) (Pt Warm) -Tenderness on Palpation (Sheba-wound No Skin Appearance) -Ulcer Cleansing Rinsed/ Irrigated with Saline -Foul Odor after Cleansing No -Anesthetic Used 5% Lidocaine Gel Right Calf (cm) 34 Right Ankle (cm) 25 Left Calf (cm) 37 Left Ankle (cm) 23.5 WC - Nurse 2 - General Ulcer CM Notes Start: 07/06/22 13:31 Freq: Status: Active Protocol: Activity Type Activity Date Activity User E-sign Co-sign Detail Recorded Client Recorded Date Recorded By Document 07/06/22 13:56 [id number] 07/06/22 14:01 MW 07/06/22 13:56 Wound Center Nurse 2 #1 right farias -Time 13:57 -Correct Patient Yes -Correct Side, Site, Position Yes -Correct Procedure Yes -Procedure Performed No -Post Debridement (cm) - Length 0 -Post Debridement (cm) - Width 0 -Post Debridement (cm) - Depth 0 -Total Square (Post) (cm) 0 -Wound/Ulcer Outcome Healed- Epithelialized #2 left farias -Time 13:57 -Correct Patient Yes -Correct Side, Site, Position Yes -Correct Procedure Yes -Procedure Performed Yes -Type of Procedure Debridement -Clinical Debridement Subcutaneous -Tissue Removed Subcutaneous -Post Debridement (cm) - Length 3.3 -Post Debridement (cm) - Width 2.4 -Post Debridement (cm) - Depth 0.1 -Total Square (Post) (cm) 7.92 -Area of Debridement (cm) - Length 3.3 -Area of Debridement (cm) - Width 2.4 -Total Square (Area) (cm) 7.92 -Tunneling No -Undermining/Tunneling No -Circular Undermining No -Wound/Ulcer Outcome Not Healed -Ulcer Cleansing Rinsed/ Irrigated with Saline -Foul Odor after Cleansing No -Bioengineered Tissue No -Bleeding Controlled with Pressure -Treatment Response Procedure Tolerated Well -Offloading No -Debridement - Subq, 1st 20sq cm Yes Pain Scale: 0-10 Numeric Is Patient Pain Free? Yes - Nurse 3 - General Ulcer D/C NN Start: 07/06/22 13:31 Freq: Status: Active Protocol: Activity Type Activity Date Activity User E-sign Co-sign Detail Recorded Client Recorded Date Recorded By Document 07/06/22 14:06 LINDSEY [id number] 07/06/22 14:06 LINDSEY 07/06/22 14:06 Wound Care Nurse 3 #2 left farias -Ulcer Cleansing Rinsed/ Irrigated with Saline -Primary Dressing Covered/Secured with Dry Gauze, Secured with Tape Right -Tubular Bandage Double Layer -Size of Tubigrip Used Size E -Size E ($) 2 Left -Tubular Bandage Double Layer -Size of Tubigrip Used Size E -Size E ($) 2 Pain Scale: 0-10 Numeric Is Patient Pain Free? Yes WC - Visit Discharge Discharge Condition Stable Ambulatory Status Wheelchair Transportation Private Auto Accompanied by son Assessment/Plan Assessment/Plan (1) Ulcer of left lower extremity with fat layer exposed: CODE(S): L97.922 - Non-pressure chronic ulcer of unspecified part of left lower leg with fat layer exposed (2) Wound of right lower extremity: CODE(S): S81.801A - Unspecified open wound, right lower leg, initial encounter (3) Edema of both lower legs: CODE(S): R60.0 - Localized edema (4) Chronic anticoagulation: CODE(S): Z79.01 - terminal supervisor (current) use of anticoagulants (5) On home oxygen therapy: CODE(S): Z99.81 - Dependence on supplemental oxygen (6) Atrial fibrillation: CODE(S): I48.91 - Unspecified atrial fibrillation PLAN: Plan Patient was seen and evaluated today at the wound center and a subcutaneous debridement was performed as documented. Wound culture obtained on 05/27/22 Staphylococcus epidermidis, Corynebacterium jeikeium, Corynebacterium amycolatum. She was treated with Augmentin and a probiotic. Wound care - Left leg ulcer is Santyl nickel thickness covered with gauze daily. She should wash the ulcer with soap and water daily. Double layer tubigrip, hopefully this will help her foot and ankle edema. Right anterior leg ulcer is healed today. We did JESU's in the office 06/15/22 which showed her vessels are non compressible. Therefore, we will continue to use DERRELL wraps for compression and wait for her formal arterial studies that are scheduled at the end of June. Vascular studies of bilateral lower extremities ordered and scheduled at the end of June. Encouraged patient to try sleeping flat to help with edema, but she states she needs to sleep in her chair to help her breathe. Keep legs elevated when seated. Encouraged high protein diet and Vitamin C 1,000 mg intake daily to help with wound healing. Follow up one week. Call or come in sooner if have any questions or concerns.
[2022-07-13 13:14] VITALS: BP 145/48; PULSE 78; RESP 18; TEMP 36.1
--- NOTE | 2022-07-13 15:06 | PN.PCM_ITS ---
History of Present Illness Date of Service: 07/13/22 Chief Complaint: Left leg wound and right anterior leg wound History of Wound: Left leg wound occurred the end of March when she getting into a Jeep, she scraped her leg along the side of the vehicle. She went to her PCP who had her placing silvadene cream topped with telfa dressing on the wound. In April she dropped her Ipad and it hit her right anterior leg and left an open wound, which has been draining quite a bit of clear drainage. She has a history of pulmonary fibrosis and is on oxygen at night time and PRN, Afib on warfarin, CKD stage 3, HTN, hypothyroidism, hyperlipidemia, aortic valve regurgitation, and bilateral knee replacements. She does sleep in a chair. Wound care - left anterior leg ulcer Santyl nickel thickness covered with gauze daily. DERRELL wrap for compression. Wound culture obtained on Staphylococcus epidermidis, Corynebacterium jeikeium, Corynebacterium amycolatum and she was treated with Augmentin and a probiotic. DERRELL wrap for compression. JESU's done in the office today, 06/14/22 and they are both non compressible. She denies any fever, chills, nausea or vomiting. Progress of Wound: Right anterior wound remains healed. Left anterior leg ulcer is smaller in size and the base is no longer fibrous. Objective Data Objective Data Vital Signs: Vital Signs Temp Pulse Resp BP 96.9 F L 78 18 145/48 H 07/13/22 13:14 07/13/22 13:14 07/13/22 13:14 07/13/22 13:14 Charges/Coding Procedures Integumentary 111xxx-113xx: [id number] Clari subq tissue 20 sq cm/< Physical Exam Const alert and oriented x3 General Appearance: cooperative HEENT normocephalic Resp normal respiratory effort Effort and Inspection: able to speak in complete sentences Cardio regular rate Cardio Narrative: bilateral lower extremity edema is much improved with compression all the way to her knees Peripheral Pulses: dorsalis pedis pulses present bilateral 1+ Extremity normal capillary refill General Extremity: edema bilateral lower extremity (+3) Details: severe Peripheral Pulses: Yes dorsalis pedis pulses present bilateral 1+ Skin Wound Narrative: Left leg wound bed improved no longer with fibrous tissue in the base and is smaller in size. Right anterior leg ulcer remains healed. Neuro oriented x3 Psych affect normal Appearance: appropriate Debridement Note Debridement Note Wound debrided: Anterior leg ulcer Laterality: Left Type of Debridement: Excisional debridement Anesthesia Used: 5% Lidocaine Gel Depth: Down to and including healthy tissue and in the subcutaneous layer Percentage of wound debrided: 100 Instrument Used: 5mm curette Tissue Removed: Devitalized tissue and slough Severity: Fat Layer Exposed Amount of bleeding with debridement: Mild Bleeding Controlled with: Compression and gauze Patient tolerated procedure: Patient tolerated procedure well Post-Debridement Measurements and Additional Note: Post-Debridement Measurements/Treatment - Nurse 1 - General Ulcer Assessment Start: 07/06/22 13:31 Freq: Status: Active Protocol: [employer] Activity Type Activity Date Activity User E-sign Co-sign Detail Recorded Client Recorded Date Recorded By Document 07/06/22 13:33 KR [id number] 07/06/22 13:37 KR Document 07/13/22 13:14 RB [id number] 07/13/22 13:19 RB 07/06/22 07/13/22 13:33 13:14 - Today's Visit Information Type of service Follow-up Visit Follow-up Visit (Physician/ELECTRONIC LAB TECHNICIAN (Physician/ELECTRONIC LAB TECHNICIAN ) ) Arrival Mode Wheelchair Wheelchair Transfer Assistance Manual Patient Identification Verified (Name & Yes Yes ) Patient Requires Transmission-Based No Precautions Vital Signs Temperature (97.8 F-99.1 F) 96.5 F L 96.9 F L Temperature Source Temporal Temporal Pulse Rate (60-100) 86 78 Pulse Location Monitor Monitor Respiratory Rate (12-18) 18 Respiratory rate source Observation Blood Pressure (90/60-120/80) 137/74 H 145/48 H Blood Pressure Mean (mm Hg) 95 80 Source Monitor Monitor Position Sitting Sitting Blood Pressure Location Right Arm Right Arm History Since Last Visit- (Skip if this is Patient's initial visit) Have you changed medications since your No No last visit? Any new allergies or adverse reactions No No Had a fall/change in ADL's that may No No increase risk of falls Signs or symptoms of abuse and/or No No neglect since last visit Have you been in the hospital since your No No last visit? Has dressing in place as prescribed Yes Yes Has compression in place as prescribed Yes Yes Has offloadiing in place as prescribed N/A No Experienced any changes in pain level or No No management Left Footwear Regular Shoe Regular Shoe Right Footwear Regular Shoe Regular Shoe Pain Scale: 0-10 Numeric Is Patient Pain Free? Yes Yes WC - Nurse 1 - General Ulcer Measurement Start: 07/06/22 13:31 Freq: Status: Active Protocol: Activity Type Activity Date Activity User E-sign Co-sign Detail Recorded Client Recorded Date Recorded By Document 07/06/22 13:33 KR [id number] 07/06/22 13:37 KR Document 07/13/22 13:14 RB [id number] 07/13/22 13:19 RB 07/06/22 07/13/22 13:33 13:14 Wound Center Nurse 1 #1 right farias -Current Size (cm) - Length 0.1 -Current Size (cm) - Width 0.1 -Current Size (cm) - Depth 0.1 -Total Square Cm 0.01 -Wound Margin Distinct, Outline Attached -Texture (Sheba-wound Skin Appearance) No Abnormality, Assessed -Moisture (Sheba-wound Skin Appearance) No Abnormality, Assessed -Color (Sheba-wound Skin Appearance) No Abnormality, Assessed -Temperature (Sheba-wound Skin No Abnormality Appearance) (Pt Warm) -Tenderness on Palpation (Sheba-wound No Skin Appearance) -Ulcer Cleansing Rinsed/ Irrigated with Saline -Foul Odor after Cleansing No #2 left farias -Combined with other wound No -Current Size (cm) - Length 3 3.3 -Current Size (cm) - Width 2.3 2.3 -Current Size (cm) - Depth 0.1 0.1 -Total Square Cm 6.9 7.59 -Photo Taken Yes -Tunneling No -Undermining/Tunneling No -Circular Undermining No -Exudate Amt Medium Medium -Exudate Type Serosanguineous Serosanguineous -Wound Margin Distinct, Distinct, Outline Outline Attached Attached -Granulation Amt Medium (34-66%) Medium (34-66%) -Granulation Quality [place] -Slough/Fibrin Yes -Necrosis Amt Medium (34-66%) Medium (34-66%) -Necrotic Tissue Type Adherent Slough Adherent Slough -Structure Exposed N/A -Texture (Sheba-wound Skin Appearance) Assessed, Assessed Scarring -Moisture (Sheba-wound Skin Appearance) No Abnormality, Assessed Assessed -Color (Sheba-wound Skin Appearance) No Abnormality, Assessed Assessed -Temperature (Sheba-wound Skin No Abnormality No Abnormality Appearance) (Pt Warm) (Pt Warm) -Tenderness on Palpation (Sheba-wound No No Skin Appearance) -Ulcer Cleansing Rinsed/ Wound Cleanser Irrigated with Saline -Foul Odor after Cleansing No No -Anesthetic Used 5% Lidocaine 4% Lidocaine Gel Solution Lower Limb Edema Present Yes Right Calf (cm) 34 Right Ankle (cm) 25 Left Calf (cm) 37 41.1 Left Ankle (cm) 23.5 24.9 WC - Nurse 2 - General Ulcer CM Notes Start: 07/06/22 13:31 Freq: Status: Active Protocol: Activity Type Activity Date Activity User E-sign Co-sign Detail Recorded Client Recorded Date Recorded By Document 07/06/22 13:56 MW [id number] 07/06/22 14:01 MW Document 07/13/22 13:30 [id number] 07/13/22 13:33 07/06/22 07/13/22 13:56 13:30 Wound Center Nurse 2 #1 right farias -Time 13:57 -Correct Patient Yes -Correct Side, Site, Position Yes -Correct Procedure Yes -Procedure Performed No -Post Debridement (cm) - Length 0 -Post Debridement (cm) - Width 0 -Post Debridement (cm) - Depth 0 -Total Square (Post) (cm) 0 -Wound/Ulcer Outcome Healed- Epithelialized #2 left farias -Time 13:57 13:31 -Correct Patient Yes Yes -Correct Side, Site, Position Yes Yes -Correct Procedure Yes Yes -Procedure Performed Yes Yes -Type of Procedure Debridement Debridement -Clinical Debridement Subcutaneous Subcutaneous -Tissue Removed Subcutaneous Subcutaneous -Post Debridement (cm) - Length 3.3 3.5 -Post Debridement (cm) - Width 2.4 2.2 -Post Debridement (cm) - Depth 0.1 0.1 -Total Square (Post) (cm) 7.92 7.70 -Area of Debridement (cm) - Length 3.3 3.5 -Area of Debridement (cm) - Width 2.4 2.2 -Total Square (Area) (cm) 7.92 7.70 -Tunneling No No -Undermining/Tunneling No No -Circular Undermining No No -Wound/Ulcer Outcome Not Healed Not Healed -Ulcer Cleansing Rinsed/ Rinsed/ Irrigated with Irrigated with Saline Saline -Foul Odor after Cleansing No No -Bioengineered Tissue No No -Bleeding Controlled with Pressure Pressure -Treatment Response Procedure Procedure Tolerated Well Tolerated Well -Offloading No No -Debridement - Subq, 1st 20sq cm Yes Yes Pain Scale: 0-10 Numeric Is Patient Pain Free? Yes Yes - Nurse 3 - General Ulcer D/C NN Start: 07/06/22 13:31 Freq: Status: Active Protocol: Activity Type Activity Date Activity User E-sign Co-sign Detail Recorded Client Recorded Date Recorded By Document 07/06/22 14:06 LINDSEY [id number] 07/06/22 14:06 KR Document 07/13/22 13:47 KR [id number] 07/13/22 13:48 KR 07/06/22 07/13/22 14:06 13:47 Wound Care Nurse 3 #2 left farias -Ulcer Cleansing Rinsed/ Rinsed/ Irrigated with Irrigated with Saline Saline -Primary Dressing Applied C Hydrogel ($) -Primary Dressing Covered/Secured with Dry Gauze, Dry Gauze, Secured with Secured with Tape Tape Right -Tubular Bandage Double Layer -Size of Tubigrip Used Size E -Size E ($) 2 Left -Tubular Bandage Double Layer -Size of Tubigrip Used Size E -Size E ($) 2 Pain Scale: 0-10 Numeric Is Patient Pain Free? 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 Wound culture obtained on 05/27/22 Staphylococcus epidermidis, Corynebacterium jeikeium, Corynebacterium amycolatum. She was treated with Augmentin and a probiotic. Wound care - Left leg ulcer is Santyl nickel thickness covered with gauze daily. She should wash the ulcer with soap and water daily. Double layer tubigrip, hopefully this will help her foot and ankle edema. Right anterior leg ulcer remains healed. Now that her left leg ulcer wound bed is beefy pink, she would benefit from an advanced wound care product, such as Epifix to help expedite her wound healing. We will seek insurance approval for this product. We did JESU's in the office 06/15/22 which showed her vessels are non compressible. Will use double tubigrips for compression compression and wait for her formal arterial studies that are scheduled at the end of June. Vascular studies of bilateral lower extremities ordered and scheduled at the end of June. Encouraged patient to try sleeping flat to help with edema, but she states she needs to sleep in her chair to help her breathe. Keep legs elevated when seated. Encouraged high protein diet and Vitamin C 1,000 mg intake daily to help with wound healing. Follow up one week. Call or come in sooner if have any questions or concerns.
[2022-07-20 13:15] VITALS: BP 148/86; PULSE 76; RESP 20; TEMP 36.6
--- NOTE | 2022-07-20 15:21 | PN.PCM_ITS ---
History of Present Illness Date of Service: 07/20/22 Chief Complaint: Left leg wound and right anterior leg wound History of Wound: Left leg wound occurred the end of March when she getting into a Jeep, she scraped her leg along the side of the vehicle. She went to her PCP who had her placing silvadene cream topped with telfa dressing on the wound. In April she dropped her Ipad and it hit her right anterior leg and left an open wound, which has been draining quite a bit of clear drainage. She has a history of pulmonary fibrosis and is on oxygen at night time and PRN, Afib on warfarin, CKD stage 3, HTN, hypothyroidism, hyperlipidemia, aortic valve regurgitation, and bilateral knee replacements. She does sleep in a chair. Wound care - Left anterior leg ulcer Cat covered with gauze 3 times per week. She has home health to assist with her dressing changes. Compression is a double medium strength tubigrip. We did JESU's in the office 06/15/22 which showed her vessels are non compressible. Arterial studies on 07/19/22 - Biphasic and triphasic Doppler waveforms are noted at the ankle level on the right. Biphasic Doppler waveforms ar noted at the ankle level on the left. Pulse-volume recordings appear satisfactory at all levels bilaterally. Resting ankle-brachial indices could not be determined on either side due to the non-compressibility of the vasculature at the ankle level bilaterally. Digital-brachial indices are normal bilaterally. There is evidence of arterial calcification at ankle level bilaterally. There is no evidence of significant arterial occlusive disease in the lower extremities bilaterally. Venous studies on 07/19/22 - Segmental valvular incompetence is noted within the great saphenous veins bilaterally. The left small saphenous vein is patent and incompetent. The accessory saphenous vein at the right knee is incompetent. An incompetent excelsior machine operator vein is noted in the right calf, located 10 cm proximal to the right medial malleolus. Pulsitile flow is noted in the deep venous system bilaterally, which may be indicative of increased venous pressure (i.e. CHF, Pulmonary HTN, etc.). Clinical correlation is recommended. Wound culture obtained on Staphylococcus epidermidis, Corynebacterium jeikeium, Corynebacterium amycolatum and she was treated with Augmentin and a probiotic. DERRELL wrap for compression. JESU's done in the office on 06/14/22 and they are both non compressible. She denies any fever, chills, nausea or vomiting. Progress of Wound: Right anterior wound remains healed. Left anterior leg ulcer is smaller in size and the base is no longer fibrous. Objective Data Objective Data Vital Signs: Vital Signs Temp Pulse Resp BP 97.8 F 76 20 H 148/86 H 07/20/22 13:15 07/20/22 13:15 07/20/22 13:15 07/20/22 13:15 Charges/Coding Procedures Integumentary [id number]: [id number] Clari subq tissue 20 sq cm/< Physical Exam Const alert and oriented x3 General Appearance: cooperative HEENT normocephalic Resp normal respiratory effort Effort and Inspection: able to speak in complete sentences Cardio regular rate Cardio Narrative: bilateral lower extremity edema is much improved with compression all the way to her knees Peripheral Pulses: dorsalis pedis pulses present bilateral 1+ Extremity normal capillary refill General Extremity: edema bilateral lower extremity (+3) Details: severe Peripheral Pulses: Yes dorsalis pedis pulses present bilateral 1+ Skin Wound Narrative: Left leg wound bed improved no longer with fibrous tissue in the base and is smaller in size. Right anterior leg ulcer remains healed. Neuro oriented x3 Psych affect normal Appearance: appropriate Debridement Note Debridement Note Wound debrided: Anterior leg ulcer Laterality: Left Type of Debridement: Excisional debridement Anesthesia Used: 5% Lidocaine Gel Depth: Down to and including healthy tissue and in the subcutaneous layer Percentage of wound debrided: 100 Instrument Used: 5mm curette Tissue Removed: Devitalized tissue and slough Severity: Fat Layer Exposed Amount of bleeding with debridement: Mild Bleeding Controlled with: Compression and gauze Patient tolerated procedure: Patient tolerated procedure well Post-Debridement Measurements and Additional Note: Post-Debridement Measurements/Treatment LUCIANO - Nurse 1 - General Ulcer Assessment Start: 07/06/22 13:31 Freq: Status: Active Protocol: FIDELINA Activity Type Activity Date Activity User E-sign Co-sign Detail Recorded Client Recorded Date Recorded By Document 07/06/22 13:33 KR [id number] 07/06/22 13:37 KR Document 07/13/22 13:14 RB [id number] 07/13/22 13:19 RB Document 07/20/22 13:15 DL [id number] 07/20/22 13:21 DL 07/06/22 07/13/22 07/20/22 13:33 13:14 13:15 WC - Today's Visit Information Type of service Follow-up Visit Follow-up Visit Follow-up Visit (Physician/SENIOR POLICY ANALYST (Physician/SENIOR POLICY ANALYST (Physician/SENIOR POLICY ANALYST ) ) ) Arrival Mode Wheelchair Wheelchair Ambulatory, Wheelchair Transfer Assistance Manual None Patient Identification Verified (Name & Yes Yes Yes ) Patient Requires Transmission-Based No No Precautions Vital Signs Temperature (97.8 F-99.1 F) 96.5 F L 96.9 F L 97.8 F Temperature Source Temporal Temporal Temporal Pulse Rate (60-100) 86 78 76 Pulse Location Monitor Monitor Monitor Respiratory Rate (12-18) 18 20 H Respiratory rate source Observation Blood Pressure (90/60-120/80) 137/74 H 145/48 H 148/86 H Blood Pressure Mean (mm Hg) 95 80 106 Source Monitor Monitor Monitor Position Sitting Sitting Blood Pressure Location Right Arm Right Arm History Since Last Visit- (Skip if this is Patient's initial visit) Have you changed medications since your No No No last visit? Any new allergies or adverse reactions No No No Had a fall/change in ADL's that may No No No increase risk of falls Signs or symptoms of abuse and/or No No No neglect since last visit Have you been in the hospital since your No No No last visit? Has dressing in place as prescribed Yes Yes Yes Has compression in place as prescribed Yes Yes Yes Has offloadiing in place as prescribed N/A No N/A Experienced any changes in pain level or No No No management Left Footwear Regular Shoe Regular Shoe Right Footwear Regular Shoe Regular Shoe Pain Scale: 0-10 Numeric Is Patient Pain Free? Yes Yes Yes - Nurse 1 - General Ulcer Measurement Start: 07/06/22 13:31 Freq: Status: Active Protocol: Activity Type Activity Date Activity User E-sign Co-sign Detail Recorded Client Recorded Date Recorded By Document 07/06/22 13:33 KR [id number] 07/06/22 13:37 KR Document 07/13/22 13:14 RB [id number] 07/13/22 13:19 RB Document 07/20/22 13:15 DL [id number] 07/20/22 13:21 DL 07/06/22 07/13/22 07/20/22 13:33 13:14 13:15 Wound Center Nurse 1 #1 right farias -Current Size (cm) - Length 0.1 -Current Size (cm) - Width 0.1 -Current Size (cm) - Depth 0.1 -Total Square Cm 0.01 -Wound Margin Distinct, Outline Attached -Texture (Sheba-wound Skin Appearance) No Abnormality, Assessed -Moisture (Sheba-wound Skin Appearance) No Abnormality, Assessed -Color (Sheba-wound Skin Appearance) No Abnormality, Assessed -Temperature (Sheba-wound Skin No Abnormality Appearance) (Pt Warm) -Tenderness on Palpation (Sheba-wound No Skin Appearance) -Ulcer Cleansing Rinsed/ Irrigated with Saline -Foul Odor after Cleansing No #2 left farias -Combined with other wound No No -Current Size (cm) - Length 3 3.3 3.2 -Current Size (cm) - Width 2.3 2.3 2 -Current Size (cm) - Depth 0.1 0.1 0.1 -Total Square Cm 6.9 7.59 6.4 -Date of Last Picture (Recall this 07/20/22 field) -Photo Taken Yes Yes -Epithelialization None Present -Tunneling No No -Undermining/Tunneling No No -Circular Undermining No No -Exudate Amt Medium Medium Medium -Exudate Type Serosanguineous Serosanguineous Serosanguineous -Wound Margin Distinct, Distinct, Flat & Intact Outline Outline Attached Attached -Granulation Amt Medium (34-66%) Medium (34-66%) Medium (34-66%) -Granulation Quality Sultana Sultana Sultana -Slough/Fibrin Yes Yes -Necrosis Amt Medium (34-66%) Medium (34-66%) Medium (34-66%) -Necrotic Tissue Type Adherent Slough Adherent Slough Adherent Slough -Structure Exposed N/A -Texture (Sheba-wound Skin Appearance) Assessed, Assessed Assessed, Scarring Scarring -Moisture (Sheba-wound Skin Appearance) No Abnormality, Assessed Assessed Assessed -Color (Sheba-wound Skin Appearance) No Abnormality, Assessed Assessed Assessed -Temperature (Sheba-wound Skin No Abnormality No Abnormality No Abnormality Appearance) (Pt Warm) (Pt Warm) (Pt Warm) -Tenderness on Palpation (Sheba-wound No No No Skin Appearance) -Ulcer Cleansing Rinsed/ Wound Cleanser Rinsed/ Irrigated with Irrigated with Saline Saline -Foul Odor after Cleansing No No No -Anesthetic Used 5% Lidocaine 4% Lidocaine 4% Lidocaine Gel Solution Solution Lower Limb Edema Present Yes Yes Right Calf (cm) 34 Right Ankle (cm) 25 Left Calf (cm) 37 41.1 38.5 Left Ankle (cm) 23.5 24.9 25.2 WC - Nurse 2 - General Ulcer CM Notes Start: 07/06/22 13:31 Freq: Status: Active Protocol: Activity Type Activity Date Activity User E-sign Co-sign Detail Recorded Client Recorded Date Recorded By Document 07/06/22 13:56 MW [id number] 07/06/22 14:01 MW Document 07/13/22 13:30 [id number] 07/13/22 13:33 JF Document 07/20/22 13:46 [id number] 07/20/22 13:48 07/06/22 07/13/22 07/20/22 13:56 13:30 13:46 Wound Center Nurse 2 #1 right farias -Time 13:57 -Correct Patient Yes -Correct Side, Site, Position Yes -Correct Procedure Yes -Procedure Performed No -Post Debridement (cm) - Length 0 -Post Debridement (cm) - Width 0 -Post Debridement (cm) - Depth 0 -Total Square (Post) (cm) 0 -Wound/Ulcer Outcome Healed- Epithelialized #2 left farias -Time 13:57 13:31 13:47 -Correct Patient Yes Yes Yes -Correct Side, Site, Position Yes Yes Yes -Correct Procedure Yes Yes Yes -Procedure Performed Yes Yes Yes -Type of Procedure Debridement Debridement Debridement -Clinical Debridement Subcutaneous Subcutaneous Subcutaneous -Tissue Removed Subcutaneous Subcutaneous Subcutaneous -Post Debridement (cm) - Length 3.3 3.5 3.2 -Post Debridement (cm) - Width 2.4 2.2 2.3 -Post Debridement (cm) - Depth 0.1 0.1 0.1 -Total Square (Post) (cm) 7.92 7.70 7.36 -Area of Debridement (cm) - Length 3.3 3.5 3.2 -Area of Debridement (cm) - Width 2.4 2.2 2.3 -Total Square (Area) (cm) 7.92 7.70 7.36 -Tunneling No No No -Undermining/Tunneling No No No -Circular Undermining No No No -Wound/Ulcer Outcome Not Healed Not Healed Not Healed -Ulcer Cleansing Rinsed/ Rinsed/ Rinsed/ Irrigated with Irrigated with Irrigated with Saline Saline Saline -Foul Odor after Cleansing No No No -Bioengineered Tissue No No No -Bleeding Controlled with Pressure Pressure Pressure -Treatment Response Procedure Procedure Procedure Tolerated Well Tolerated Well Tolerated Well -Offloading No No No -Debridement - Subq, 1st 20sq cm Yes Yes Yes Pain Scale: 0-10 Numeric Is Patient Pain Free? Yes Yes Yes - Nurse 3 - General Ulcer D/C NN Start: 07/06/22 13:31 Freq: Status: Active Protocol: Activity Type Activity Date Activity User E-sign Co-sign Detail Recorded Client Recorded Date Recorded By Document 07/06/22 14:06 KR [id number] 07/06/22 14:06 KR Document 07/13/22 13:47 KR [id number] 07/13/22 13:48 KR Document 07/20/22 14:06 DL [id number] 07/20/22 14:09 DL 07/06/22 07/13/22 07/20/22 14:06 13:47 14:06 Wound Care Nurse 3 #2 left farias -Ulcer Cleansing Rinsed/ Rinsed/ Rinsed/ Irrigated with Irrigated with Irrigated with Saline Saline Saline -Foul Odor after Cleansing No -Primary Dressing Applied C Hydrogel ($) Promogran Cat Matter -Primary Dressing Covered/Secured with Dry Gauze, Dry Gauze, Dry Gauze & Secured with Secured with Roll Gauze, Tape Tape Secured with Tape -Promogran Cat Matter 1 Right -Tubular Bandage Double Layer -Size of Tubigrip Used Size E -Size E ($) 2 Left -Tubular Bandage Double Layer Double Layer -Size of Tubigrip Used Size E Size E -Size E ($) 2 2 Treatment Response Procedure Tolerated Well Pain Scale: 0-10 Numeric Is Patient Pain Free? Yes Yes Yes - Visit Discharge Discharge Condition Stable Stable Stable Ambulatory Status Wheelchair Wheelchair Ambulatory, Wheelchair Transportation Private Auto Private Auto Private Auto Accompanied by son son son Facility Type Home Health Orders Sent Yes Assessment/Plan Assessment/Plan (1) Ulcer of left lower extremity with fat layer exposed: CODE(S): L97.922 - Non-pressure chronic ulcer of unspecified part of left lower leg with fat layer exposed (2) Edema of both lower legs: CODE(S): R60.0 - Localized edema (3) Chronic anticoagulation: CODE(S): Z79.01 - supervisor intermediates (current) use of anticoagulants (4) On home oxygen therapy: CODE(S): Z99.81 - Dependence on supplemental oxygen (5) Atrial fibrillation: CODE(S): I48.91 - Unspecified atrial fibrillation PLAN: Plan Patient was seen and evaluated today at the wound center and a subcutaneous debridement was performed as documented. Wound culture obtained on 05/27/22 Staphylococcus epidermidis, Corynebacterium jeikeium, Corynebacterium amycolatum. She was treated with Augmentin and a probiotic. Wound care - Left leg ulcer is Prism covered with gauze 3 times a week. Compression - Double layer tubigrip. Now that her left leg ulcer wound bed is beefy pink, she would benefit from an advanced wound care product, such as Epifix to help expedite her wound healing. We are waiting on insurance approval for this product. We did JESU's in the office 06/15/22 which showed her vessels are non compressible. Arterial studies on 07/19/22 - Biphasic and triphasic Doppler waveforms are noted at the ankle level on the right. Biphasic Doppler waveforms ar noted at the ankle level on the left. Pulse-volume recordings appear satisfactory at all levels bilaterally. Resting ankle-brachial indices could not be determined on either side due to the non-compressibility of the vasculature at the ankle level bilaterally. Digital-brachial indices are normal bilaterally. There is evidence of arterial calcification at ankle level bilaterally. There is no evidence of significant arterial occlusive disease in the lower extremities bilaterally. Venous studies on 07/19/22 - Segmental valvular incompetence is noted within the great saphenous veins bilaterally. The left small saphenous vein is patent and incompetent. The accessory saphenous vein at the right knee is incompetent. An incompetent excelsior machine operator vein is noted in the right calf, located 10 cm proximal to the right medial malleolus. Pulsitile flow is noted in the deep venous system bilaterally, which may be indicative of increased venous pressure (i.e. CHF, Pulmonary HTN, etc.). Clinical correlation is recommended. Encouraged patient to try sleeping flat to help with edema, but she states she needs to sleep in her chair to help her breathe. Keep legs elevated when seated. Encouraged high protein diet and Vitamin C 1,000 mg intake daily to help with wound healing. Will refer to Dr. Rosa for further evaluation. Follow up one week. Call or come in sooner if have any questions or concerns.
[2022-07-27 13:30] VITALS: BP 161/88; PULSE 78; TEMP 36.4
--- NOTE | 2022-07-27 16:40 | PCM.WC.PN ---
History of Present Illness Date of Service: 07/27/22 Chief Complaint: Left leg wound and right anterior leg wound History of Wound: Left leg wound occurred the end of March when she getting into a Jeep, she scraped her leg along the side of the vehicle. She went to her PCP who had her placing silvadene cream topped with telfa dressing on the wound. In April she dropped her Ipad and it hit her right anterior leg and left an open wound, which has been draining quite a bit of clear drainage. She has a history of pulmonary fibrosis and is on oxygen at night time and PRN, Afib on warfarin, CKD stage 3, HTN, hypothyroidism, hyperlipidemia, aortic valve regurgitation, and bilateral knee replacements. She does sleep in a chair. Wound care - Left anterior leg ulcer Cindy covered with gauze 3 times per week. She has home health to assist with her dressing changes. Compression is a double medium strength tubigrip. We did JESU's in the office 06/15/22 which showed her vessels are non compressible. Arterial studies on 07/19/22 - Biphasic and triphasic Doppler waveforms are noted at the ankle level on the right. Biphasic Doppler waveforms ar noted at the ankle level on the left. Pulse-volume recordings appear satisfactory at all levels bilaterally. Resting ankle-brachial indices could not be determined on either side due to the non-compressibility of the vasculature at the ankle level bilaterally. Digital-brachial indices are normal bilaterally. There is evidence of arterial calcification at ankle level bilaterally. There is no evidence of significant arterial occlusive disease in the lower extremities bilaterally. Venous studies on 07/19/22 - Segmental valvular incompetence is noted within the great saphenous veins bilaterally. The left small saphenous vein is patent and incompetent. The accessory saphenous vein at the right knee is incompetent. An incompetent middle school humanities teacher vein is noted in the right calf, located 10 cm proximal to the right medial malleolus. Pulsitile flow is noted in the deep venous system bilaterally, which may be indicative of increased venous pressure (i.e. CHF, Pulmonary HTN, etc.). Clinical correlation is recommended. Wound culture obtained on Staphylococcus epidermidis, Corynebacterium jeikeium, Corynebacterium amycolatum and she was treated with Augmentin and a probiotic. DERRELL wrap for compression. JESU's done in the office on 06/14/22 and they are both non compressible. She denies any fever, chills, nausea or vomiting. Progress of Wound: Right anterior wound remains healed. Left anterior leg ulcer is smaller in size and the base is no longer fibrous, it is ready for an advanced wound healing product. She has been approved for Epifix. She is would like to contact her insurance to verify what her out of pocket will be before she commits to the Epifix. Objective Data Objective Data Vital Signs: Vital Signs Temp Pulse Resp BP 97.6 F L 78 20 H 161/88 H 07/27/22 13:30 07/27/22 13:30 07/20/22 13:15 07/27/22 13:30 Charges/Coding Procedures Integumentary [id number]: [id number] Clari subq tissue 20 sq cm/< Physical Exam Const alert and oriented x3 General Appearance: cooperative HEENT normocephalic Resp normal respiratory effort Effort and Inspection: able to speak in complete sentences Cardio regular rate Cardio Narrative: bilateral lower extremity edema is much improved with compression all the way to her knees Peripheral Pulses: dorsalis pedis pulses present bilateral 1+ Extremity normal capillary refill General Extremity: edema bilateral lower extremity (+3) Details: severe Peripheral Pulses: Yes dorsalis pedis pulses present bilateral 1+ Skin Wound Narrative: Left leg wound bed improved no longer with fibrous tissue in the base and is smaller in size. Right anterior leg ulcer remains healed. Neuro oriented x3 Psych affect normal Appearance: appropriate Debridement Note Debridement Note Wound debrided: Anterior leg ulcer Laterality: Left Type of Debridement: Excisional debridement Anesthesia Used: 5% Lidocaine Gel Depth: Down to and including healthy tissue and in the subcutaneous layer Percentage of wound debrided: 100 Instrument Used: 5mm curette Tissue Removed: Devitalized tissue and slough Severity: Fat Layer Exposed Amount of bleeding with debridement: Mild Bleeding Controlled with: Compression and gauze Patient tolerated procedure: Patient tolerated procedure well Post-Debridement Measurements and Additional Note: Post-Debridement Measurements/Treatment WC - Nurse 1 - General Ulcer Assessment Start: 07/06/22 13:31 Freq: Status: Active Protocol: FIDELINA Activity Type Activity Date Activity User E-sign Co-sign Detail Recorded Client Recorded Date Recorded By Document 07/06/22 13:33 LINDSEY [id number] 07/06/22 13:37 KR Document 07/13/22 13:14 RB [id number] 07/13/22 13:19 RB Document 07/20/22 13:15 DL [id number] 07/20/22 13:21 DL Document 07/27/22 13:30 AK [id number] 07/27/22 13:38 AK 07/06/22 07/13/22 07/20/22 13:33 13:14 13:15 WC - Today's Visit Information Type of service Follow-up Visit Follow-up Visit Follow-up Visit (Physician/DURABILITY TECHNICIAN (Physician/DURABILITY TECHNICIAN (Physician/DURABILITY TECHNICIAN ) ) ) Arrival Mode Wheelchair Wheelchair Ambulatory, Wheelchair Transfer Assistance Manual None Patient Identification Verified (Name & Yes Yes Yes ) Patient Requires Transmission-Based No No Precautions Vital Signs Temperature (97.8 F-99.1 F) 96.5 F L 96.9 F L 97.8 F Temperature Source Temporal Temporal Temporal Pulse Rate (60-100) 86 78 76 Pulse Location Monitor Monitor Monitor Respiratory Rate (12-18) 18 20 H Respiratory rate source Observation Blood Pressure (90/60-120/80) 137/74 H 145/48 H 148/86 H Blood Pressure Mean (mm Hg) 95 80 106 Source Monitor Monitor Monitor Position Sitting Sitting Blood Pressure Location Right Arm Right Arm History Since Last Visit- (Skip if this is Patient's initial visit) Have you changed medications since your No No No last visit? Any new allergies or adverse reactions No No No Had a fall/change in ADL's that may No No No increase risk of falls Signs or symptoms of abuse and/or No No No neglect since last visit Have you been in the hospital since your No No No last visit? Has dressing in place as prescribed Yes Yes Yes Has compression in place as prescribed Yes Yes Yes Has offloadiing in place as prescribed N/A No N/A Experienced any changes in pain level or No No No management Left Footwear Regular Shoe Regular Shoe Right Footwear Regular Shoe Regular Shoe Pain Scale: 0-10 Numeric Is Patient Pain Free? Yes Yes Yes 07/27/22 13:30 WC - Today's Visit Information Type of service Follow-up Visit (Physician/DURABILITY TECHNICIAN ) Arrival Mode Ambulatory, Walker Transfer Assistance Patient Identification Verified (Name & Yes ) Patient Requires Transmission-Based Precautions Vital Signs Temperature (97.8 F-99.1 F) 97.6 F L Temperature Source Temporal Pulse Rate (60-100) 78 Pulse Location Monitor Respiratory Rate (12-18) Respiratory rate source Blood Pressure (90/60-120/80) 161/88 H Blood Pressure Mean (mm Hg) 112 Source Monitor Position Sitting Blood Pressure Location Left Arm History Since Last Visit- (Skip if this is Patient's initial visit) Have you changed medications since your No last visit? Any new allergies or adverse reactions No Had a fall/change in ADL's that may No increase risk of falls Signs or symptoms of abuse and/or No neglect since last visit Have you been in the hospital since your No last visit? Has dressing in place as prescribed Yes Has compression in place as prescribed N/A Has offloadiing in place as prescribed N/A Experienced any changes in pain level or No management Left Footwear Regular Shoe Right Footwear Regular Shoe Pain Scale: 0-10 Numeric Is Patient Pain Free? Yes WC - Nurse 1 - General Ulcer Measurement Start: 07/06/22 13:31 Freq: Status: Active Protocol: Activity Type Activity Date Activity User E-sign Co-sign Detail Recorded Client Recorded Date Recorded By Document 07/06/22 13:33 KR [id number] 07/06/22 13:37 KR Document 07/13/22 13:14 RB [id number] 07/13/22 13:19 RB Document 07/20/22 13:15 DL [id number] 07/20/22 13:21 DL Document 07/27/22 13:30 AK [id number] 07/27/22 13:38 AK 07/06/22 07/13/22 07/20/22 13:33 13:14 13:15 Wound Center Nurse 1 #1 right farias -Current Size (cm) - Length 0.1 -Current Size (cm) - Width 0.1 -Current Size (cm) - Depth 0.1 -Total Square Cm 0.01 -Wound Margin Distinct, Outline Attached -Texture (Sheba-wound Skin Appearance) No Abnormality, Assessed -Moisture (Sheba-wound Skin Appearance) No Abnormality, Assessed -Color (Sheba-wound Skin Appearance) No Abnormality, Assessed -Temperature (Sheba-wound Skin No Abnormality Appearance) (Pt Warm) -Tenderness on Palpation (Sheba-wound No Skin Appearance) -Ulcer Cleansing Rinsed/ Irrigated with Saline -Foul Odor after Cleansing No #2 left farias -Combined with other wound No No -Current Size (cm) - Length 3 3.3 3.2 -Current Size (cm) - Width 2.3 2.3 2 -Current Size (cm) - Depth 0.1 0.1 0.1 -Total Square Cm 6.9 7.59 6.4 -Date of Last Picture (Recall this 07/20/22 field) -Photo Taken Yes Yes -Epithelialization None Present -Tunneling No No -Undermining/Tunneling No No -Circular Undermining No No -Exudate Amt Medium Medium Medium -Exudate Type Serosanguineous Serosanguineous Serosanguineous -Wound Margin Distinct, Distinct, Flat & Intact Outline Outline Attached Attached -Granulation Amt Medium (34-66%) Medium (34-66%) Medium (34-66%) -Granulation Quality [place] -Slough/Fibrin Yes Yes -Necrosis Amt Medium (34-66%) Medium (34-66%) Medium (34-66%) -Necrotic Tissue Type Adherent Slough Adherent Slough Adherent Slough -Structure Exposed N/A -Texture (Sheba-wound Skin Appearance) Assessed, Assessed Assessed, Scarring Scarring -Moisture (Sheba-wound Skin Appearance) No Abnormality, Assessed Assessed Assessed -Color (Sheba-wound Skin Appearance) No Abnormality, Assessed Assessed Assessed -Temperature (Sheba-wound Skin No Abnormality No Abnormality No Abnormality Appearance) (Pt Warm) (Pt Warm) (Pt Warm) -Tenderness on Palpation (Sheba-wound No No No Skin Appearance) -Ulcer Cleansing Rinsed/ Wound Cleanser Rinsed/ Irrigated with Irrigated with Saline Saline -Foul Odor after Cleansing No No No -Anesthetic Used 5% Lidocaine 4% Lidocaine 4% Lidocaine Gel Solution Solution Lower Limb Edema Present Yes Yes Right Calf (cm) 34 Right Ankle (cm) 25 Left Calf (cm) 37 41.1 38.5 Left Ankle (cm) 23.5 24.9 25.2 07/27/22 13:30 Wound Center Nurse 1 #1 right farias -Current Size (cm) - Length -Current Size (cm) - Width -Current Size (cm) - Depth -Total Square Cm -Wound Margin -Texture (Sheba-wound Skin Appearance) -Moisture (Sheba-wound Skin Appearance) -Color (Sheba-wound Skin Appearance) -Temperature (Sheba-wound Skin Appearance) -Tenderness on Palpation (Sheba-wound Skin Appearance) -Ulcer Cleansing -Foul Odor after Cleansing #2 left farias -Combined with other wound -Current Size (cm) - Length 2.5 -Current Size (cm) - Width 1.9 -Current Size (cm) - Depth 0.1 -Total Square Cm 4.75 -Date of Last Picture (Recall this field) -Photo Taken -Epithelialization -Tunneling -Undermining/Tunneling -Circular Undermining -Exudate Amt Medium -Exudate Type Serosanguineous -Wound Margin Distinct, Outline Attached -Granulation Amt Large (67-100%) -Granulation Quality [place] -Slough/Fibrin -Necrosis Amt -Necrotic Tissue Type -Structure Exposed -Texture (Sheba-wound Skin Appearance) Assessed, Scarring -Moisture (Sheba-wound Skin Appearance) No Abnormality, Assessed -Color (Sheba-wound Skin Appearance) No Abnormality, Assessed -Temperature (Sheba-wound Skin No Abnormality Appearance) (Pt Warm) -Tenderness on Palpation (Sheba-wound No Skin Appearance) -Ulcer Cleansing Rinsed/ Irrigated with Saline -Foul Odor after Cleansing No -Anesthetic Used 5% Lidocaine Gel Lower Limb Edema Present Right Calf (cm) Right Ankle (cm) Left Calf (cm) 40.5 Left Ankle (cm) 25.2 WC - Nurse 2 - General Ulcer CM Notes Start: 07/06/22 13:31 Freq: Status: Active Protocol: Activity Type Activity Date Activity User E-sign Co-sign Detail Recorded Client Recorded Date Recorded By Document 07/06/22 13:56 [id number] 07/06/22 14:01 Document 07/13/22 13:30 [id number] 07/13/22 13:33 Document 07/20/22 13:46 [id number] 07/20/22 13:48 Document 07/27/22 14:10 [id number] 07/27/22 14:14 07/06/22 07/13/22 07/20/22 13:56 13:30 13:46 Wound Center Nurse 2 #1 right farias -Time 13:57 -Correct Patient Yes -Correct Side, Site, Position Yes -Correct Procedure Yes -Procedure Performed No -Post Debridement (cm) - Length 0 -Post Debridement (cm) - Width 0 -Post Debridement (cm) - Depth 0 -Total Square (Post) (cm) 0 -Wound/Ulcer Outcome Healed- Epithelialized #2 left farias -Time 13:57 13:31 13:47 -Correct Patient Yes Yes Yes -Correct Side, Site, Position Yes Yes Yes -Correct Procedure Yes Yes Yes -Procedure Performed Yes Yes Yes -Type of Procedure Debridement Debridement Debridement -Clinical Debridement Subcutaneous Subcutaneous Subcutaneous -Tissue Removed Subcutaneous Subcutaneous Subcutaneous -Post Debridement (cm) - Length 3.3 3.5 3.2 -Post Debridement (cm) - Width 2.4 2.2 2.3 -Post Debridement (cm) - Depth 0.1 0.1 0.1 -Total Square (Post) (cm) 7.92 7.70 7.36 -Area of Debridement (cm) - Length 3.3 3.5 3.2 -Area of Debridement (cm) - Width 2.4 2.2 2.3 -Total Square (Area) (cm) 7.92 7.70 7.36 -Tunneling No No No -Undermining/Tunneling No No No -Circular Undermining No No No -Wound/Ulcer Outcome Not Healed Not Healed Not Healed -Ulcer Cleansing Rinsed/ Rinsed/ Rinsed/ Irrigated with Irrigated with Irrigated with Saline Saline Saline -Foul Odor after Cleansing No No No -Bioengineered Tissue No No No -Bleeding Controlled with Pressure Pressure Pressure -Treatment Response Procedure Procedure Procedure Tolerated Well Tolerated Well Tolerated Well -Offloading No No No -Debridement - Subq, 1st 20sq cm Yes Yes Yes Pain Scale: 0-10 Numeric Is Patient Pain Free? Yes Yes Yes 07/27/22 14:10 Wound Center Nurse 2 #1 right farias -Time -Correct Patient -Correct Side, Site, Position -Correct Procedure -Procedure Performed -Post Debridement (cm) - Length -Post Debridement (cm) - Width -Post Debridement (cm) - Depth -Total Square (Post) (cm) -Wound/Ulcer Outcome #2 left farias -Time 14:11 -Correct Patient Yes -Correct Side, Site, Position Yes -Correct Procedure Yes -Procedure Performed Yes -Type of Procedure Debridement -Clinical Debridement Subcutaneous -Tissue Removed Subcutaneous -Post Debridement (cm) - Length 3.0 -Post Debridement (cm) - Width 2 -Post Debridement (cm) - Depth 0.1 -Total Square (Post) (cm) 6.0 -Area of Debridement (cm) - Length 3.0 -Area of Debridement (cm) - Width 2.0 -Total Square (Area) (cm) 6.00 -Tunneling No -Undermining/Tunneling No -Circular Undermining No -Wound/Ulcer Outcome Not Healed -Ulcer Cleansing Rinsed/ Irrigated with Saline -Foul Odor after Cleansing No -Bioengineered Tissue No -Bleeding Controlled with Pressure -Treatment Response Procedure Tolerated Well -Offloading No -Debridement - Subq, 1st 20sq cm Yes Pain Scale: 0-10 Numeric Is Patient Pain Free? Yes WC - Nurse 3 - General Ulcer D/C NN Start: 07/06/22 13:31 Freq: Status: Active Protocol: Activity Type Activity Date Activity User E-sign Co-sign Detail Recorded Client Recorded Date Recorded By Document 07/06/22 14:06 KR [id number] 07/06/22 14:06 KR Document 07/13/22 13:47 KR [id number] 07/13/22 13:48 KR Document 07/20/22 14:06 DL [id number] 07/20/22 14:09 DL Document 07/27/22 14:26 DL [id number] 07/27/22 14:37 DL 07/06/22 07/13/22 07/20/22 14:06 13:47 14:06 Wound Care Nurse 3 #2 left farias -Ulcer Cleansing Rinsed/ Rinsed/ Rinsed/ Irrigated with Irrigated with Irrigated with Saline Saline Saline -Foul Odor after Cleansing No -Primary Dressing Applied C Hydrogel ($) Promogran Cindy Matter -Other Dressing -Primary Dressing Covered/Secured with Dry Gauze, Dry Gauze, Dry Gauze & Secured with Secured with Roll Gauze, Tape Tape Secured with Tape -Other Covering -Promogran Cindy Matter 1 Right -Tubular Bandage Double Layer -Size of Tubigrip Used Size E -Size E ($) 2 Left -Tubular Bandage Double Layer Double Layer -Size of Tubigrip Used Size E Size E -Size E ($) 2 2 Treatment Response Procedure Tolerated Well Pain Scale: 0-10 Numeric Is Patient Pain Free? Yes Yes Yes WC - Visit Discharge Discharge Condition Stable Stable Stable Ambulatory Status Wheelchair Wheelchair Ambulatory, Wheelchair Transportation Private Auto Private Auto Private Auto Accompanied by son son son Facility Type Home Health Orders Sent Yes 07/27/22 14:26 Wound Care Nurse 3 #2 left farias -Ulcer Cleansing Rinsed/ Irrigated with Saline -Foul Odor after Cleansing No -Primary Dressing Applied -Other Dressing cindy -Primary Dressing Covered/Secured with Dry Gauze & Roll Gauze, Secured with Tape -Other Covering tubigrip -Promogran Cindy Matter Right -Tubular Bandage -Size of Tubigrip Used -Size E ($) Left -Tubular Bandage -Size of Tubigrip Used -Size E ($) Treatment Response Procedure Tolerated Well Pain Scale: 0-10 Numeric Is Patient Pain Free? Yes WC - Visit Discharge Discharge Condition Stable Ambulatory Status Wheelchair Transportation Private Auto Accompanied by Facility Type Home Health Orders Sent Yes Assessment/Plan Assessment/Plan (1) Ulcer of left lower extremity with fat layer exposed: CODE(S): L97.922 - Non-pressure chronic ulcer of unspecified part of left lower leg with fat layer exposed (2) Edema of both lower legs: CODE(S): R60.0 - Localized edema (3) Chronic anticoagulation: CODE(S): Z79.01 - custodial (current) use of anticoagulants (4) On home oxygen therapy: CODE(S): Z99.81 - Dependence on supplemental oxygen (5) Atrial fibrillation: CODE(S): I48.91 - Unspecified atrial fibrillation PLAN: Plan Patient was seen and evaluated today at the wound center and a subcutaneous debridement was performed as documented. Wound culture obtained on 05/27/22 Staphylococcus epidermidis, Corynebacterium jeikeium, Corynebacterium amycolatum. She was treated with Augmentin and a probiotic. Wound care - Left leg ulcer is moistened Cindy covered with gauze 3 times a week. She has been approved for Epifix and she would like to investigate more about what her out of pocket will be before committing to the Epifix. We will discuss further at her next visit. Compression - Double layer tubigrip. We did JESU's in the office 06/15/22 which showed her vessels are non compressible. Arterial studies on 07/19/22 - Biphasic and triphasic Doppler waveforms are noted at the ankle level on the right. Biphasic Doppler waveforms ar noted at the ankle level on the left. Pulse-volume recordings appear satisfactory at all levels bilaterally. Resting ankle-brachial indices could not be determined on either side due to the non-compressibility of the vasculature at the ankle level bilaterally. Digital-brachial indices are normal bilaterally. There is evidence of arterial calcification at ankle level bilaterally. There is no evidence of significant arterial occlusive disease in the lower extremities bilaterally. Venous studies on 07/19/22 - Segmental valvular incompetence is noted within the great saphenous veins bilaterally. The left small saphenous vein is patent and incompetent. The accessory saphenous vein at the right knee is incompetent. An incompetent middle school humanities teacher vein is noted in the right calf, located 10 cm proximal to the right medial malleolus. Pulsitile flow is noted in the deep venous system bilaterally, which may be indicative of increased venous pressure (i.e. CHF, Pulmonary HTN, etc.). Clinical correlation is recommended. Encouraged patient to try sleeping flat to help with edema, but she states she needs to sleep in her chair to help her breathe. Keep legs elevated when seated. Encouraged high protein diet and Vitamin C 1,000 mg intake daily to help with wound healing. Referred to Dr. Rosa for further evaluation. Her appointment is next week. Follow up one week. Call or come in sooner if have any questions or concerns.
== END 2022-07-29 23:59 | disposition home or self-care (01) ==
LOC: WC 13:15
PROVIDERS: PCP Family Medicine; Visit Provider Nurse Practitioner Family
DX: L97.822 Non-pressure chronic ulcer of other part of left lower leg with fat layer exposed (principal); I48.91 Unspecified atrial fibrillation; J84.10 Pulmonary fibrosis, unspecified; N18.30 Chronic kidney disease, stage 3 unspecified; E78.5 Hyperlipidemia, unspecified; Z99.81 Dependence on supplemental oxygen; I12.9 Hypertensive chronic kidney disease with stage 1 through stage 4 chronic kidney disease, or unspecified chronic kidney disease; Z79.01 Long term (current) use of anticoagulants; R60.0 Localized edema
CPT/HCPCS: 11042

== ENCOUNTER 2022-08-24 09:45 | Outpatient (RCR) | payer MEDICARE, SELFPAY ==
[2022-07-30 01:31] VITALS: BP 161/88; PULSE 78; RESP 20; TEMP 36.4
[2022-08-03 13:17] VITALS: BP 152/61; PULSE 68; RESP 18; TEMP 36.9
--- NOTE | 2022-08-03 14:38 | PCM.WC.PN ---
History of Present Illness Date of Service: 08/03/22 Chief Complaint: Left leg wound and right anterior leg wound History of Wound: Left leg wound occurred the end of March when she getting into a Jeep, she scraped her leg along the side of the vehicle. She went to her PCP who had her placing silvadene cream topped with telfa dressing on the wound. In April she dropped her Ipad and it hit her right anterior leg and left an open wound, which has been draining quite a bit of clear drainage. She has a history of pulmonary fibrosis and is on oxygen at night time and PRN, Afib on warfarin, CKD stage 3, HTN, hypothyroidism, hyperlipidemia, aortic valve regurgitation, and bilateral knee replacements. She does sleep in a chair. Wound care - Left anterior leg ulcer Cat covered with gauze 3 times per week. She has home health to assist with her dressing changes. Compression is a double medium strength tubigrip. We did JESU's in the office 06/15/22 which showed her vessels are non compressible. Arterial studies on 07/19/22 - Biphasic and triphasic Doppler waveforms are noted at the ankle level on the right. Biphasic Doppler waveforms ar noted at the ankle level on the left. Pulse-volume recordings appear satisfactory at all levels bilaterally. Resting ankle-brachial indices could not be determined on either side due to the non-compressibility of the vasculature at the ankle level bilaterally. Digital-brachial indices are normal bilaterally. There is evidence of arterial calcification at ankle level bilaterally. There is no evidence of significant arterial occlusive disease in the lower extremities bilaterally. Venous studies on 07/19/22 - Segmental valvular incompetence is noted within the great saphenous veins bilaterally. The left small saphenous vein is patent and incompetent. The accessory saphenous vein at the right knee is incompetent. An incompetent tow truck operator vein is noted in the right calf, located 10 cm proximal to the right medial malleolus. Pulsitile flow is noted in the deep venous system bilaterally, which may be indicative of increased venous pressure (i.e. CHF, Pulmonary HTN, etc.). Clinical correlation is recommended. Wound culture obtained on Staphylococcus epidermidis, Corynebacterium jeikeium, Corynebacterium amycolatum and she was treated with Augmentin and a probiotic. DERRELL wrap for compression. JESU's done in the office on 06/14/22 and they are both non compressible. She denies any fever, chills, nausea or vomiting. Progress of Wound: Her left leg ulcer is smaller in size. Objective Data Objective Data Vital Signs: Vital Signs Temp Pulse Resp BP 98.4 F 68 18 152/61 H 08/03/22 13:17 08/03/22 13:17 08/03/22 13:17 08/03/22 13:17 Charges/Coding Procedures Integumentary [id number]: [id number] Clari subq tissue 20 sq cm/< Physical Exam Const alert and oriented x3 General Appearance: cooperative HEENT normocephalic Resp normal respiratory effort Effort and Inspection: able to speak in complete sentences Cardio regular rate Cardio Narrative: bilateral lower extremity edema is much improved with compression all the way to her knees Peripheral Pulses: dorsalis pedis pulses present bilateral 1+ Extremity normal capillary refill Extremity Narrative: +1 left leg edema. General Extremity: edema bilateral lower extremity (+3) Details: severe Peripheral Pulses: Yes dorsalis pedis pulses present bilateral 1+ Skin Wound Narrative: Left leg wound is beefy pink and smaller in size. Right anterior leg ulcer remains healed. Neuro oriented x3 Psych affect normal Appearance: appropriate Debridement Note Debridement Note Wound debrided: Anterior leg ulcer Laterality: Left Type of Debridement: Excisional debridement Anesthesia Used: 5% Lidocaine Gel Depth: Down to and including healthy tissue and in the subcutaneous layer Percentage of wound debrided: 100 Instrument Used: 5mm curette Tissue Removed: Devitalized tissue and slough Severity: Fat Layer Exposed Amount of bleeding with debridement: Mild Bleeding Controlled with: Compression and gauze Patient tolerated procedure: Patient tolerated procedure well Post-Debridement Measurements and Additional Note: Post-Debridement Measurements/Treatment - Nurse 1 - General Ulcer Assessment Start: 08/03/22 13:17 Freq: Status: Active Protocol: LUCIANO.FILI Activity Type Activity Date Activity User E-sign Co-sign Detail Recorded Client Recorded Date Recorded By Document 08/03/22 13:17 ML [id number] 08/03/22 13:19 ML 08/03/22 13:17 - Today's Visit Information Type of service Follow-up Visit (Physician/BALLOON MAKER ) Arrival Mode Wheelchair Transfer Assistance None Patient Identification Verified (Name & Yes ) Patient Requires Transmission-Based No Precautions Safety Precautions NA Vital Signs Temperature (97.8 F-99.1 F) 98.4 F Temperature Source Temporal Pulse Rate (60-100) 68 Pulse Location Monitor Respiratory Rate (12-18) 18 Respiratory rate source Observation Blood Pressure (90/60-120/80) 152/61 H Blood Pressure Mean (mm Hg) 91 Source Monitor Position Sitting Blood Pressure Location Left Arm History Since Last Visit- (Skip if this is Patient's initial visit) Have you changed medications since your No last visit? Any new allergies or adverse reactions No Had a fall/change in ADL's that may No increase risk of falls Signs or symptoms of abuse and/or No neglect since last visit Have you been in the hospital since your No last visit? Has dressing in place as prescribed Yes Has compression in place as prescribed Yes Has offloadiing in place as prescribed N/A Experienced any changes in pain level or No management Left Footwear Regular Shoe Right Footwear Regular Shoe Pain Scale: 0-10 Numeric Is Patient Pain Free? Yes WC - Nurse 1 - General Ulcer Measurement Start: 08/03/22 13:17 Freq: Status: Active Protocol: Activity Type Activity Date Activity User E-sign Co-sign Detail Recorded Client Recorded Date Recorded By Document 08/03/22 13:17 ML [id number] 08/03/22 13:19 ML 08/03/22 13:17 Wound Center Nurse 1 #2 left farias -Current Size (cm) - Length 2 -Current Size (cm) - Width 1.2 -Current Size (cm) - Depth 0.1 -Total Square Cm 2.4 -Exudate Amt Small -Exudate Type Serosanguineous -Wound Margin Distinct, Outline Attached -Granulation Amt Small (1-33%) -Slough/Fibrin Yes -Necrosis Amt Small (1-33%) -Necrotic Tissue Type Adherent Slough -Texture (Sheba-wound Skin Appearance) Assessed -Moisture (Sheba-wound Skin Appearance) Assessed -Color (Sheba-wound Skin Appearance) Assessed -Temperature (Sheba-wound Skin No Abnormality Appearance) (Pt Warm) -Tenderness on Palpation (Sheba-wound No Skin Appearance) -Ulcer Cleansing Rinsed/ Irrigated with Saline -Foul Odor after Cleansing No -Anesthetic Used 5% Lidocaine Gel Left Calf (cm) 38 Left Ankle (cm) 24 WC - Nurse 2 - General Ulcer CM Notes Start: 08/03/22 13:17 Freq: Status: Active Protocol: Activity Type Activity Date Activity User E-sign Co-sign Detail Recorded Client Recorded Date Recorded By Document 08/03/22 13:38 [id number] 08/03/22 13:40 KAITLIN 08/03/22 13:38 Wound Center Nurse 2 #2 left farias -Time 13:39 -Correct Patient Yes -Correct Side, Site, Position Yes -Correct Procedure Yes -Procedure Performed Yes -Type of Procedure Debridement -Clinical Debridement Subcutaneous -Tissue Removed Subcutaneous -Post Debridement (cm) - Length 2.2 -Post Debridement (cm) - Width 1.7 -Post Debridement (cm) - Depth 0.1 -Total Square (Post) (cm) 3.74 -Area of Debridement (cm) - Length 2.2 -Area of Debridement (cm) - Width 1.7 -Total Square (Area) (cm) 3.74 -Tunneling No -Undermining/Tunneling No -Circular Undermining No -Wound/Ulcer Outcome Not Healed -Ulcer Cleansing Rinsed/ Irrigated with Saline -Foul Odor after Cleansing No -Bioengineered Tissue No -Bleeding Controlled with Pressure -Treatment Response Procedure Tolerated Well -Offloading No -Debridement - Subq, 1st 20sq cm Yes Pain Scale: 0-10 Numeric Is Patient Pain Free? Yes - Nurse 3 - General Ulcer D/C NN Start: 08/03/22 13:17 Freq: Status: Active Protocol: Activity Type Activity Date Activity User E-sign Co-sign Detail Recorded Client Recorded Date Recorded By Document 08/03/22 13:43 [id number] 08/03/22 13:43 LINDSEY 08/03/22 13:43 Wound Care Nurse 3 #2 left farias -Ulcer Cleansing Rinsed/ Irrigated with Saline -Primary Dressing Applied NonAdherent Contact Layer, Promogran Cat Matter -Primary Dressing Covered/Secured with Dry Gauze, Secured with Tape -Promogran Cat Matter 1 Pain Scale: 0-10 Numeric Is Patient Pain Free? Yes WC - Visit Discharge Discharge Condition Stable Ambulatory Status Ambulatory Transportation Private Auto Accompanied by Assessment/Plan Assessment/Plan (1) Ulcer of left lower extremity with fat layer exposed: CODE(S): L97.922 - Non-pressure chronic ulcer of unspecified part of left lower leg with fat layer exposed (2) Edema of both lower legs: CODE(S): R60.0 - Localized edema (3) Chronic anticoagulation: CODE(S): Z79.01 - terminal operator (current) use of anticoagulants (4) On home oxygen therapy: CODE(S): Z99.81 - Dependence on supplemental oxygen (5) Atrial fibrillation: CODE(S): I48.91 - Unspecified atrial fibrillation PLAN: Plan Patient was seen and evaluated today at the wound center and a subcutaneous debridement was performed as documented. Wound culture obtained on 05/27/22 Staphylococcus epidermidis, Corynebacterium jeikeium, Corynebacterium amycolatum. She was treated with Augmentin and a probiotic. Wound care - Left leg ulcer is moistened Cat covered with adaptic and topped with gauze 3 times a week. She has been approved for Epifix but she states that she is not close to her deductible, therefore she does not want to use the advanced wound product. Compression - Double layer tubigrip. We did JESU's in the office 06/15/22 which showed her vessels are non compressible. Arterial studies on 07/19/22 - Biphasic and triphasic Doppler waveforms are noted at the ankle level on the right. Biphasic Doppler waveforms ar noted at the ankle level on the left. Pulse-volume recordings appear satisfactory at all levels bilaterally. Resting ankle-brachial indices could not be determined on either side due to the non-compressibility of the vasculature at the ankle level bilaterally. Digital-brachial indices are normal bilaterally. There is evidence of arterial calcification at ankle level bilaterally. There is no evidence of significant arterial occlusive disease in the lower extremities bilaterally. Venous studies on 07/19/22 - Segmental valvular incompetence is noted within the great saphenous veins bilaterally. The left small saphenous vein is patent and incompetent. The accessory saphenous vein at the right knee is incompetent. An incompetent tow truck operator vein is noted in the right calf, located 10 cm proximal to the right medial malleolus. Pulsitile flow is noted in the deep venous system bilaterally, which may be indicative of increased venous pressure (i.e. CHF, Pulmonary HTN, etc.). Clinical correlation is recommended. Encouraged patient to try sleeping flat to help with edema, but she states she needs to sleep in her chair to help her breathe. Keep legs elevated when seated. Encouraged high protein diet and Vitamin C 1,000 mg intake daily to help with wound healing. Referred to Dr. Rosa for further evaluation, her appointment is tomorrow. Follow up one week. Call or come in sooner if have any questions or concerns.
[2022-08-10 10:00] VITALS: BP 142/78; PULSE 79; RESP 18; TEMP 36.1
--- NOTE | 2022-08-10 10:32 | PCM.WC.PN ---
History of Present Illness Date of Service: 08/10/22 Chief Complaint: Left leg wound and right anterior leg wound History of Wound: Left leg wound occurred the end of March when she getting into a Jeep, she scraped her leg along the side of the vehicle. She went to her PCP who had her placing silvadene cream topped with telfa dressing on the wound. In April she dropped her Ipad and it hit her right anterior leg and left an open wound, which has been draining quite a bit of clear drainage. She has a history of pulmonary fibrosis and is on oxygen at night time and PRN, Afib on warfarin, CKD stage 3, HTN, hypothyroidism, hyperlipidemia, aortic valve regurgitation, and bilateral knee replacements. She does sleep in a chair. Wound care - Left anterior leg ulcer Cat covered with gauze 3 times per week. She has home health to assist with her dressing changes. Compression is a double medium strength tubigrip. We did JESU's in the office 06/15/22 which showed her vessels are non compressible. Arterial studies on 07/19/22 - Biphasic and triphasic Doppler waveforms are noted at the ankle level on the right. Biphasic Doppler waveforms ar noted at the ankle level on the left. Pulse-volume recordings appear satisfactory at all levels bilaterally. Resting ankle-brachial indices could not be determined on either side due to the non-compressibility of the vasculature at the ankle level bilaterally. Digital-brachial indices are normal bilaterally. There is evidence of arterial calcification at ankle level bilaterally. There is no evidence of significant arterial occlusive disease in the lower extremities bilaterally. Venous studies on 07/19/22 - Segmental valvular incompetence is noted within the great saphenous veins bilaterally. The left small saphenous vein is patent and incompetent. The accessory saphenous vein at the right knee is incompetent. An incompetent roving court reporter vein is noted in the right calf, located 10 cm proximal to the right medial malleolus. Pulsitile flow is noted in the deep venous system bilaterally, which may be indicative of increased venous pressure (i.e. CHF, Pulmonary HTN, etc.). Clinical correlation is recommended. Wound culture obtained on Staphylococcus epidermidis, Corynebacterium jeikeium, Corynebacterium amycolatum and she was treated with Augmentin and a probiotic. DERRELL wrap for compression. JESU's done in the office on 06/14/22 and they are both non compressible. She denies any fever, chills, nausea or vomiting. Progress of Wound: Her left leg ulcer is smaller in size. Wound bed is a beefy pink. Objective Data Objective Data Vital Signs: Vital Signs Temp Pulse Resp BP 97 F L 79 18 142/78 H 08/10/22 10:00 08/10/22 10:00 08/10/22 10:00 08/10/22 10:00 Charges/Coding Procedures Integumentary 111xxx-113xx: [id number] Clari subq tissue 20 sq cm/< Physical Exam Const alert and oriented x3 General Appearance: cooperative HEENT normocephalic Resp normal respiratory effort Effort and Inspection: able to speak in complete sentences Cardio regular rate Cardio Narrative: bilateral lower extremity edema is much improved with compression all the way to her knees Peripheral Pulses: dorsalis pedis pulses present bilateral 1+ Extremity normal capillary refill Extremity Narrative: +1 left leg edema. General Extremity: edema bilateral lower extremity (+3) Details: severe Peripheral Pulses: Yes dorsalis pedis pulses present bilateral 1+ Skin Wound Narrative: Left leg wound is beefy pink and smaller in size. Right anterior leg ulcer remains healed. Neuro oriented x3 Psych affect normal Appearance: appropriate Debridement Note Debridement Note Wound debrided: Anterior leg ulcer Laterality: Left Type of Debridement: Excisional debridement Anesthesia Used: 5% Lidocaine Gel Depth: Down to and including healthy tissue and in the subcutaneous layer Percentage of wound debrided: 100 Instrument Used: 5mm curette Tissue Removed: Devitalized tissue and slough Severity: Fat Layer Exposed Amount of bleeding with debridement: Mild Bleeding Controlled with: Compression and gauze Patient tolerated procedure: Patient tolerated procedure well Post-Debridement Measurements and Additional Note: Post-Debridement Measurements/Treatment - Nurse 1 - General Ulcer Assessment Start: 08/03/22 13:17 Freq: Status: Active Protocol: FIDELINA Activity Type Activity Date Activity User E-sign Co-sign Detail Recorded Client Recorded Date Recorded By Document 08/03/22 13:17 ML [id number] 08/03/22 13:19 ML Document 08/10/22 10:00 RB [id number] 08/10/22 10:04 RB 08/03/22 08/10/22 13:17 10:00 - Today's Visit Information Type of service Follow-up Visit Follow-up Visit (Physician/DIRECTOR OF EVENT MANAGEMENT (Physician/DIRECTOR OF EVENT MANAGEMENT ) ) Arrival Mode Wheelchair Wheelchair Transfer Assistance None None Patient Identification Verified (Name & Yes Yes ) Patient Requires Transmission-Based No No Precautions Safety Precautions NA Vital Signs Temperature (97.8 F-99.1 F) 98.4 F 97 F L Temperature Source Temporal Temporal Pulse Rate (60-100) 68 79 Pulse Location Monitor Monitor Respiratory Rate (12-18) 18 18 Respiratory rate source Observation Observation Blood Pressure (90/60-120/80) 152/61 H 142/78 H Blood Pressure Mean (mm Hg) 91 99 Source Monitor Monitor Position Sitting Sitting Blood Pressure Location Left Arm Left Arm History Since Last Visit- (Skip if this is Patient's initial visit) Have you changed medications since your No No last visit? Any new allergies or adverse reactions No No Had a fall/change in ADL's that may No No increase risk of falls Signs or symptoms of abuse and/or No No neglect since last visit Have you been in the hospital since your No No last visit? Has dressing in place as prescribed Yes Yes Has compression in place as prescribed Yes Yes Has offloadiing in place as prescribed N/A No Experienced any changes in pain level or No No management Left Footwear Regular Shoe Right Footwear Regular Shoe Pain Scale: 0-10 Numeric Is Patient Pain Free? Yes Yes WC - Nurse 1 - General Ulcer Measurement Start: 08/03/22 13:17 Freq: Status: Active Protocol: Activity Type Activity Date Activity User E-sign Co-sign Detail Recorded Client Recorded Date Recorded By Document 08/03/22 13:17 ML [id number] 08/03/22 13:19 ML Document 08/10/22 10:00 RB [id number] 08/10/22 10:04 RB 08/03/22 08/10/22 13:17 10:00 Wound Center Nurse 1 #2 left farias -Combined with other wound No -Current Size (cm) - Length 2 1.7 -Current Size (cm) - Width 1.2 0.9 -Current Size (cm) - Depth 0.1 0.1 -Total Square Cm 2.4 1.53 -Photo Taken Yes -Tunneling No -Undermining/Tunneling No -Circular Undermining No -Exudate Amt Small Medium -Exudate Type Serosanguineous Serosanguineous -Wound Margin Distinct, Distinct, Outline Outline Attached Attached -Granulation Amt Small (1-33%) Medium (34-66%) -Granulation Quality New [place] -Slough/Fibrin Yes Yes -Necrosis Amt Small (1-33%) Small (1-33%) -Necrotic Tissue Type Adherent Slough Adherent Slough -Structure Exposed N/A -Texture (Sheba-wound Skin Appearance) Assessed Assessed, Scarring -Moisture (Sheba-wound Skin Appearance) Assessed Assessed -Color (Sheba-wound Skin Appearance) Assessed Assessed -Temperature (Sheba-wound Skin No Abnormality No Abnormality Appearance) (Pt Warm) (Pt Warm) -Tenderness on Palpation (Sheba-wound No No Skin Appearance) -Ulcer Cleansing Rinsed/ Wound Cleanser Irrigated with Saline -Foul Odor after Cleansing No No -Anesthetic Used 5% Lidocaine 5% Lidocaine Gel Gel Lower Limb Edema Present Yes Left Calf (cm) 38 39.8 Left Ankle (cm) 24 24 WC - Nurse 2 - General Ulcer CM Notes Start: 08/03/22 13:17 Freq: Status: Active Protocol: Activity Type Activity Date Activity User E-sign Co-sign Detail Recorded Client Recorded Date Recorded By Document 08/03/22 13:38 [id number] 08/03/22 13:40 Document 08/10/22 10:20 [id number] 08/10/22 10:22 08/03/22 08/10/22 13:38 10:20 Wound Center Nurse 2 #2 left farias -Time 13:39 10:21 -Correct Patient Yes Yes -Correct Side, Site, Position Yes Yes -Correct Procedure Yes Yes -Procedure Performed Yes Yes -Type of Procedure Debridement Debridement -Clinical Debridement Subcutaneous Subcutaneous -Tissue Removed Subcutaneous Subcutaneous -Post Debridement (cm) - Length 2.2 1.8 -Post Debridement (cm) - Width 1.7 1.4 -Post Debridement (cm) - Depth 0.1 0.1 -Total Square (Post) (cm) 3.74 2.52 -Area of Debridement (cm) - Length 2.2 1.8 -Area of Debridement (cm) - Width 1.7 1.4 -Total Square (Area) (cm) 3.74 2.52 -Tunneling No No -Undermining/Tunneling No No -Circular Undermining No No -Wound/Ulcer Outcome Not Healed Not Healed -Ulcer Cleansing Rinsed/ Rinsed/ Irrigated with Irrigated with Saline Saline -Foul Odor after Cleansing No No -Bioengineered Tissue No No -Bleeding Controlled with Pressure Pressure -Treatment Response Procedure Procedure Tolerated Well Tolerated Well -Offloading No No -Debridement - Subq, 1st 20sq cm Yes Yes Pain Scale: 0-10 Numeric Is Patient Pain Free? Yes Yes - Nurse 3 - General Ulcer D/C NN Start: 08/03/22 13:17 Freq: Status: Active Protocol: Activity Type Activity Date Activity User E-sign Co-sign Detail Recorded Client Recorded Date Recorded By Document 08/03/22 13:43 LINDSEY [id number] 08/03/22 13:43 LINDSEY 08/03/22 13:43 Wound Care Nurse 3 #2 left farias -Ulcer Cleansing Rinsed/ Irrigated with Saline -Primary Dressing Applied NonAdherent Contact Layer, Promogran Cat Matter -Primary Dressing Covered/Secured with Dry Gauze, Secured with Tape -Promogran Cat Matter 1 Pain Scale: 0-10 Numeric Is Patient Pain Free? Yes - Visit Discharge Discharge Condition Stable Ambulatory Status Ambulatory Transportation Private Auto Accompanied by Assessment/Plan Assessment/Plan (1) Ulcer of left lower extremity with fat layer exposed: CODE(S): L97.922 - Non-pressure chronic ulcer of unspecified part of left lower leg with fat layer exposed (2) Edema of both lower legs: CODE(S): R60.0 - Localized edema (3) Chronic anticoagulation: CODE(S): Z79.01 - extermination inspector (current) use of anticoagulants (4) On home oxygen therapy: CODE(S): Z99.81 - Dependence on supplemental oxygen (5) Atrial fibrillation: CODE(S): I48.91 - Unspecified atrial fibrillation PLAN: Plan Patient was seen and evaluated today at the wound center and a subcutaneous debridement was performed as documented. Wound culture obtained on 05/27/22 Staphylococcus epidermidis, Corynebacterium jeikeium, Corynebacterium amycolatum. She was treated with Augmentin and a probiotic. Wound care - Left leg ulcer is moistened Cat covered with adaptic and topped with gauze 3 times a week. She has been approved for Epifix but she states that she is not close to her deductible, therefore she does not want to use the advanced wound product. Compression - Double layer tubigrip. We did JESU's in the office 06/15/22 which showed her vessels are non compressible. Arterial studies on 07/19/22 - Biphasic and triphasic Doppler waveforms are noted at the ankle level on the right. Biphasic Doppler waveforms ar noted at the ankle level on the left. Pulse-volume recordings appear satisfactory at all levels bilaterally. Resting ankle-brachial indices could not be determined on either side due to the non-compressibility of the vasculature at the ankle level bilaterally. Digital-brachial indices are normal bilaterally. There is evidence of arterial calcification at ankle level bilaterally. There is no evidence of significant arterial occlusive disease in the lower extremities bilaterally. Venous studies on 07/19/22 - Segmental valvular incompetence is noted within the great saphenous veins bilaterally. The left small saphenous vein is patent and incompetent. The accessory saphenous vein at the right knee is incompetent. An incompetent roving court reporter vein is noted in the right calf, located 10 cm proximal to the right medial malleolus. Pulsitile flow is noted in the deep venous system bilaterally, which may be indicative of increased venous pressure (i.e. CHF, Pulmonary HTN, etc.). Clinical correlation is recommended. Encouraged patient to try sleeping flat to help with edema, but she states she needs to sleep in her chair to help her breathe. Keep legs elevated when seated. Encouraged high protein diet and Vitamin C 1,000 mg intake daily to help with wound healing. She saw Dr. Rosa last week and he stated that as long as she heals with local care there is no need for intervention. If she would have a reoccurrence, then she should follow up with him and he recommends graduated compression stockings to help control edema. Follow up one week. Call or come in sooner if have any questions or concerns.
[2022-08-17 09:43] VITALS: BP 143/52; PULSE 75; RESP 16; TEMP 36.1
--- NOTE | 2022-08-17 12:19 | PCM.WC.PN ---
History of Present Illness Date of Service: 08/17/22 Chief Complaint: Left leg wound and right anterior leg wound History of Wound: Left leg wound occurred the end of March when she getting into a Jeep, she scraped her leg along the side of the vehicle. She went to her PCP who had her placing silvadene cream topped with telfa dressing on the wound. In April she dropped her Ipad and it hit her right anterior leg and left an open wound, which has been draining quite a bit of clear drainage. She has a history of pulmonary fibrosis and is on oxygen at night time and PRN, Afib on warfarin, CKD stage 3, HTN, hypothyroidism, hyperlipidemia, aortic valve regurgitation, and bilateral knee replacements. She does sleep in a chair. Wound care - Left anterior leg ulcer Cindy covered with gauze 3 times per week. She has home health to assist with her dressing changes. Compression is a double medium strength tubigrip. We did JESU's in the office 06/15/22 which showed her vessels are non compressible. Arterial studies on 07/19/22 - Biphasic and triphasic Doppler waveforms are noted at the ankle level on the right. Biphasic Doppler waveforms ar noted at the ankle level on the left. Pulse-volume recordings appear satisfactory at all levels bilaterally. Resting ankle-brachial indices could not be determined on either side due to the non-compressibility of the vasculature at the ankle level bilaterally. Digital-brachial indices are normal bilaterally. There is evidence of arterial calcification at ankle level bilaterally. There is no evidence of significant arterial occlusive disease in the lower extremities bilaterally. Venous studies on 07/19/22 - Segmental valvular incompetence is noted within the great saphenous veins bilaterally. The left small saphenous vein is patent and incompetent. The accessory saphenous vein at the right knee is incompetent. An incompetent coating mixer supervisor vein is noted in the right calf, located 10 cm proximal to the right medial malleolus. Pulsitile flow is noted in the deep venous system bilaterally, which may be indicative of increased venous pressure (i.e. CHF, Pulmonary HTN, etc.). Clinical correlation is recommended. Wound culture obtained on Staphylococcus epidermidis, Corynebacterium jeikeium, Corynebacterium amycolatum and she was treated with Augmentin and a probiotic. DERRELL wrap for compression. JESU's done in the office on 06/14/22 and they are both non compressible. She denies any fever, chills, nausea or vomiting. Progress of Wound: Her left leg ulcer is smaller in size. Wound bed is a beefy pink. Objective Data Objective Data Vital Signs: Vital Signs Temp Pulse Resp BP O2 Del Method 96.9 F L 75 16 143/52 H Room Air 08/17/22 09:43 08/17/22 09:43 08/17/22 09:43 08/17/22 09:43 08/17/22 09:43 Oxygen Delivery Method Room Air Charges/Coding Procedures Integumentary 111xxx-113xx: [id number] Clari subq tissue 20 sq cm/< Debridement Note Debridement Note Wound debrided: Anterior leg ulcer Laterality: Left Type of Debridement: Excisional debridement Anesthesia Used: 5% Lidocaine Gel Depth: Down to and including healthy tissue and in the subcutaneous layer Percentage of wound debrided: 100 Instrument Used: 3mm curette Tissue Removed: Devitalized tissue and slough Severity: Fat Layer Exposed Amount of bleeding with debridement: Mild Bleeding Controlled with: Compression and gauze Patient tolerated procedure: Patient tolerated procedure well Post-Debridement Measurements and Additional Note: Post-Debridement Measurements/Treatment - Nurse 1 - General Ulcer Assessment Start: 08/03/22 13:17 Freq: Status: Active Protocol: FIDELINA Activity Type Activity Date Activity User E-sign Co-sign Detail Recorded Client Recorded Date Recorded By Document 08/03/22 13:17 ML [id number] 08/03/22 13:19 ML Document 08/10/22 10:00 RB [id number] 08/10/22 10:04 RB Document 08/17/22 09:43 [facility] [id number] 08/17/22 09:47 BMF 08/03/22 08/10/22 08/17/22 13:17 10:00 09:43 - Today's Visit Information Type of service Follow-up Visit Follow-up Visit Follow-up Visit (Physician/BUSINESS INTELLIGENCE ADMINISTRATOR (Physician/BUSINESS INTELLIGENCE ADMINISTRATOR (Physician/BUSINESS INTELLIGENCE ADMINISTRATOR ) ) ) Arrival Mode Wheelchair Wheelchair Wheelchair Transfer Assistance None None None Accompanied by son Patient Identification Verified (Name & Yes Yes Yes ) Patient Requires Transmission-Based No No No Precautions Safety Precautions NA Vital Signs Temperature (97.8 F-99.1 F) 98.4 F 97 F L 96.9 F L Temperature Source Temporal Temporal Temporal Pulse Rate (60-100) 68 79 75 Pulse Location Monitor Monitor Monitor Respiratory Rate (12-18) 18 18 16 Respiratory rate source Observation Observation Observation Oxygen Delivery Method Room Air Blood Pressure (90/60-120/80) 152/61 H 142/78 H 143/52 H Blood Pressure Mean (mm Hg) 91 99 82 Source Monitor Monitor Monitor Position Sitting Sitting Sitting Blood Pressure Location Left Arm Left Arm Left Arm History Since Last Visit- (Skip if this is Patient's initial visit) Have you changed medications since your No No No last visit? Any new allergies or adverse reactions No No No Had a fall/change in ADL's that may No No No increase risk of falls Signs or symptoms of abuse and/or No No No neglect since last visit Have you been in the hospital since your No No No last visit? Has dressing in place as prescribed Yes Yes Yes Has compression in place as prescribed Yes Yes Yes Has offloadiing in place as prescribed N/A No N/A Experienced any changes in pain level or No No No management Left Footwear Regular Shoe Regular Shoe Right Footwear Regular Shoe Regular Shoe Pain Scale: 0-10 Numeric Is Patient Pain Free? Yes Yes Yes WC - Nurse 1 - General Ulcer Measurement Start: 08/03/22 13:17 Freq: Status: Active Protocol: Activity Type Activity Date Activity User E-sign Co-sign Detail Recorded Client Recorded Date Recorded By Document 08/03/22 13:17 ML [id number] 08/03/22 13:19 ML Document 08/10/22 10:00 RB [id number] 08/10/22 10:04 RB Document 08/17/22 09:43 [facility] [id number] 08/17/22 09:47 BMF 08/03/22 08/10/22 08/17/22 13:17 10:00 09:43 Wound Center Nurse 1 #2 left farias -Combined with other wound No No -Current Size (cm) - Length 2 1.7 1.5 -Current Size (cm) - Width 1.2 0.9 1.2 -Current Size (cm) - Depth 0.1 0.1 0.1 -Total Square Cm 2.4 1.53 1.80 -Date of Last Picture (Recall this 08/17/22 field) -Photo Taken Yes Yes -Epithelialization Small 1-33% -Tunneling No No -Undermining/Tunneling No No -Circular Undermining No No -Exudate Amt Small Medium Medium -Exudate Type Serosanguineous Serosanguineous Serosanguineous -Wound Margin Distinct, Distinct, Flat & Intact Outline Outline Attached Attached -Granulation Amt Small (1-33%) Medium (34-66%) Medium (34-66%) -Granulation Quality Nenzel Nenzel -Slough/Fibrin Yes Yes Yes -Necrosis Amt Small (1-33%) Small (1-33%) Medium (34-66%) -Necrotic Tissue Type Adherent Slough Adherent Slough Adherent Slough -Structure Exposed N/A -Texture (Sheba-wound Skin Appearance) Assessed Assessed, Assessed, Scarring Scarring -Moisture (Sheba-wound Skin Appearance) Assessed Assessed Assessed,Dry/ Scaly -Color (Sheba-wound Skin Appearance) Assessed Assessed Assessed -Temperature (Sheba-wound Skin No Abnormality No Abnormality No Abnormality Appearance) (Pt Warm) (Pt Warm) (Pt Warm) -Tenderness on Palpation (Sheba-wound No No No Skin Appearance) -Ulcer Cleansing Rinsed/ Wound Cleanser Soap and Water Irrigated with Saline -Foul Odor after Cleansing No No No -Anesthetic Used 5% Lidocaine 5% Lidocaine 5% Lidocaine Gel Gel Gel Lower Limb Edema Present Yes Yes Left Calf (cm) 38 39.8 40.5 Left Ankle (cm) 24 24 24.3 WC - Nurse 2 - General Ulcer CM Notes Start: 08/03/22 13:17 Freq: Status: Active Protocol: Activity Type Activity Date Activity User E-sign Co-sign Detail Recorded Client Recorded Date Recorded By Document 08/03/22 13:38 [id number] 08/03/22 13:40 Document 08/10/22 10:20 [id number] 08/10/22 10:22 Document 08/17/22 10:11 [id number] 08/17/22 10:13 08/03/22 08/10/22 08/17/22 13:38 10:20 10:11 Wound Center Nurse 2 #2 left farias -Time 13:39 10:21 10:12 -Correct Patient Yes Yes Yes -Correct Side, Site, Position Yes Yes Yes -Correct Procedure Yes Yes Yes -Procedure Performed Yes Yes Yes -Type of Procedure Debridement Debridement Debridement -Clinical Debridement Subcutaneous Subcutaneous Subcutaneous -Tissue Removed Subcutaneous Subcutaneous Subcutaneous -Post Debridement (cm) - Length 2.2 1.8 1.7 -Post Debridement (cm) - Width 1.7 1.4 1 -Post Debridement (cm) - Depth 0.1 0.1 0.1 -Total Square (Post) (cm) 3.74 2.52 1.7 -Area of Debridement (cm) - Length 2.2 1.8 1.7 -Area of Debridement (cm) - Width 1.7 1.4 1 -Total Square (Area) (cm) 3.74 2.52 1.7 -Tunneling No No No -Undermining/Tunneling No No No -Circular Undermining No No No -Wound/Ulcer Outcome Not Healed Not Healed Not Healed -Ulcer Cleansing Rinsed/ Rinsed/ Rinsed/ Irrigated with Irrigated with Irrigated with Saline Saline Saline -Foul Odor after Cleansing No No No -Bioengineered Tissue No No No -Bleeding Controlled with Pressure Pressure Pressure -Treatment Response Procedure Procedure Procedure Tolerated Well Tolerated Well Tolerated Well -Offloading No No No -Debridement - Subq, 1st 20sq cm Yes Yes Yes Pain Scale: 0-10 Numeric Is Patient Pain Free? Yes Yes Yes - Nurse 3 - General Ulcer D/C NN Start: 08/03/22 13:17 Freq: Status: Active Protocol: Activity Type Activity Date Activity User E-sign Co-sign Detail Recorded Client Recorded Date Recorded By Document 08/03/22 13:43 [id number] 08/03/22 13:43 Document 08/17/22 10:26 [facility] [id number] 08/17/22 10:26 [facility] 08/03/22 08/17/22 13:43 10:26 Wound Care Nurse 3 #2 left farias -Ulcer Cleansing Rinsed/ Rinsed/ Irrigated with Irrigated with Saline Saline -Foul Odor after Cleansing No -Primary Dressing Applied NonAdherent Contact Layer, Promogran Cindy Matter -Other Dressing cindy -Primary Dressing Covered/Secured with Dry Gauze, Dry Gauze & Secured with Roll Gauze, Tape Secured with Tape -Promogran Cindy Matter 1 ble -Tubular Bandage Double Layer -Size of Tubigrip Used Size E -Size E ($) 2 Treatment Response Procedure Tolerated Well Pain Scale: 0-10 Numeric Is Patient Pain Free? Yes Yes WC - Visit Discharge Discharge Condition Stable Stable Ambulatory Status Ambulatory Wheelchair Transportation Private Auto Private Auto Accompanied by son Assessment/Plan Assessment/Plan (1) Ulcer of left lower extremity with fat layer exposed: CODE(S): L97.922 - Non-pressure chronic ulcer of unspecified part of left lower leg with fat layer exposed (2) Edema of both lower legs: CODE(S): R60.0 - Localized edema (3) Chronic anticoagulation: CODE(S): Z79.01 - penitentiary (current) use of anticoagulants (4) On home oxygen therapy: CODE(S): Z99.81 - Dependence on supplemental oxygen (5) Atrial fibrillation: CODE(S): I48.91 - Unspecified atrial fibrillation PLAN: Plan Patient was seen and evaluated today at the wound center and a subcutaneous debridement was performed as documented. Wound culture obtained on 05/27/22 Staphylococcus epidermidis, Corynebacterium jeikeium, Corynebacterium amycolatum. She was treated with Augmentin and a probiotic. Wound care - Left leg ulcer is moistened Cindy covered with adaptic and topped with gauze 3 times a week. She has been approved for Epifix but she states that she is not close to her deductible, therefore she does not want to use the advanced wound product. Compression - Double layer tubigrip. We did JESU's in the office 06/15/22 which showed her vessels are non compressible. Arterial studies on 07/19/22 - Biphasic and triphasic Doppler waveforms are noted at the ankle level on the right. Biphasic Doppler waveforms ar noted at the ankle level on the left. Pulse-volume recordings appear satisfactory at all levels bilaterally. Resting ankle-brachial indices could not be determined on either side due to the non-compressibility of the vasculature at the ankle level bilaterally. Digital-brachial indices are normal bilaterally. There is evidence of arterial calcification at ankle level bilaterally. There is no evidence of significant arterial occlusive disease in the lower extremities bilaterally. Venous studies on 07/19/22 - Segmental valvular incompetence is noted within the great saphenous veins bilaterally. The left small saphenous vein is patent and incompetent. The accessory saphenous vein at the right knee is incompetent. An incompetent coating mixer supervisor vein is noted in the right calf, located 10 cm proximal to the right medial malleolus. Pulsatile flow is noted in the deep venous system bilaterally, which may be indicative of increased venous pressure (i.e. CHF, Pulmonary HTN, etc.). She saw Dr. Rosa on 08/04/22 and he stated that as long as she heals with local care there is no need for intervention. If she would have a reoccurrence, then she should follow up with him and he recommends graduated compression stockings to help control edema. Encouraged patient to try sleeping flat to help with edema, but she states she needs to sleep in her chair to help her breathe. Keep legs elevated when seated. Encouraged high protein diet and Vitamin C 1,000 mg intake daily to help with wound healing. Follow up one week. Call or come in sooner if have any questions or concerns.
[2022-08-24 10:03] VITALS: BP 136/47; PULSE 65; RESP 16; TEMP 35.5
--- NOTE | 2022-08-24 12:34 | PCM.WC.PN ---
History of Present Illness Date of Service: 08/24/22 Chief Complaint: Left leg wound and right anterior leg wound History of Wound: Left leg wound occurred the end of March when she getting into a Jeep, she scraped her leg along the side of the vehicle. She went to her PCP who had her placing silvadene cream topped with telfa dressing on the wound. In April she dropped her Ipad and it hit her right anterior leg and left an open wound, which has been draining quite a bit of clear drainage. She has a history of pulmonary fibrosis and is on oxygen at night time and PRN, Afib on warfarin, CKD stage 3, HTN, hypothyroidism, hyperlipidemia, aortic valve regurgitation, and bilateral knee replacements. She does sleep in a chair. Wound care - Left anterior leg ulcer Cindy covered with gauze 3 times per week. She has home health to assist with her dressing changes. Compression is a double medium strength tubigrip. We did JESU's in the office 06/15/22 which showed her vessels are non compressible. Arterial studies on 07/19/22 - Biphasic and triphasic Doppler waveforms are noted at the ankle level on the right. Biphasic Doppler waveforms ar noted at the ankle level on the left. Pulse-volume recordings appear satisfactory at all levels bilaterally. Resting ankle-brachial indices could not be determined on either side due to the non-compressibility of the vasculature at the ankle level bilaterally. Digital-brachial indices are normal bilaterally. There is evidence of arterial calcification at ankle level bilaterally. There is no evidence of significant arterial occlusive disease in the lower extremities bilaterally. Venous studies on 07/19/22 - Segmental valvular incompetence is noted within the great saphenous veins bilaterally. The left small saphenous vein is patent and incompetent. The accessory saphenous vein at the right knee is incompetent. An incompetent cement mason maintenance vein is noted in the right calf, located 10 cm proximal to the right medial malleolus. Pulsitile flow is noted in the deep venous system bilaterally, which may be indicative of increased venous pressure (i.e. CHF, Pulmonary HTN, etc.). Clinical correlation is recommended. Wound culture obtained on Staphylococcus epidermidis, Corynebacterium jeikeium, Corynebacterium amycolatum and she was treated with Augmentin and a probiotic. DERRELL wrap for compression. JESU's done in the office on 06/14/22 and they are both non compressible. She denies any fever, chills, nausea or vomiting. Progress of Wound: Her left leg ulcer is smaller in size. Wound bed is a beefy pink. Objective Data Objective Data Vital Signs: Vital Signs Temp Pulse Resp BP O2 Del Method 95.9 F L 65 16 136/47 H Room Air 08/24/22 10:03 08/24/22 10:03 08/24/22 10:03 08/24/22 10:03 08/24/22 10:03 Oxygen Delivery Method Room Air Charges/Coding Procedures Integumentary 111xxx-113xx: [id number] Clari subq tissue 20 sq cm/< Debridement Note Debridement Note Wound debrided: Anterior leg ulcer Laterality: Left Type of Debridement: Excisional debridement Anesthesia Used: 5% Lidocaine Gel Depth: Down to and including healthy tissue and in the subcutaneous layer Percentage of wound debrided: 100 Instrument Used: 3mm curette Tissue Removed: Devitalized tissue and slough Severity: Fat Layer Exposed Amount of bleeding with debridement: Mild Bleeding Controlled with: Compression and gauze Patient tolerated procedure: Patient tolerated procedure well Post-Debridement Measurements and Additional Note: Post-Debridement Measurements/Treatment - Nurse 1 - General Ulcer Assessment Start: 08/03/22 13:17 Freq: Status: Active Protocol: FIDELINA Activity Type Activity Date Activity User E-sign Co-sign Detail Recorded Client Recorded Date Recorded By Document 08/03/22 13:17 [id number] 08/03/22 13:19 Document 08/10/22 10:00 [id number] 08/10/22 10:04 RB Document 08/17/22 09:43 [facility] [id number] 08/17/22 09:47 [facility] Document 08/24/22 10:03 [facility] [id number] 08/24/22 10:11 [facility] 08/03/22 08/10/22 08/17/22 13:17 10:00 09:43 - Today's Visit Information Type of service Follow-up Visit Follow-up Visit Follow-up Visit (Physician/[employer]OCIATE (Physician/BI[employer] PRODUCTION ASSOCIATE (Physician/[employer] PRODUCTION ASSOCIATE ) ) ) Arrival Mode Wheelchair Wheelchair Wheelchair Transfer Assistance None None None Accompanied by son Patient Identification Verified (Name & Yes Yes Yes ) Patient Requires Transmission-Based No No No Precautions Safety Precautions NA Vital Signs Temperature (97.8 F-99.1 F) 98.4 F 97 F L 96.9 F L Temperature Source Temporal Temporal Temporal Pulse Rate (60-100) 68 79 75 Pulse Location Monitor Monitor Monitor Respiratory Rate (12-18) 18 18 16 Respiratory rate source Observation Observation Observation Oxygen Delivery Method Room Air Blood Pressure (90/60-120/80) 152/61 H 142/78 H 143/52 H Blood Pressure Mean (mm Hg) 91 99 82 Source Monitor Monitor Monitor Position Sitting Sitting Sitting Blood Pressure Location Left Arm Left Arm Left Arm History Since Last Visit- (Skip if this is Patient's initial visit) Have you changed medications since your No No No last visit? Any new allergies or adverse reactions No No No Had a fall/change in ADL's that may No No No increase risk of falls Signs or symptoms of abuse and/or No No No neglect since last visit Have you been in the hospital since your No No No last visit? Has dressing in place as prescribed Yes Yes Yes Has compression in place as prescribed Yes Yes Yes Has offloadiing in place as prescribed N/A No N/A Experienced any changes in pain level or No No No management Left Footwear Regular Shoe Regular Shoe Right Footwear Regular Shoe Regular Shoe Pain Scale: 0-10 Numeric Is Patient Pain Free? Yes Yes Yes 08/24/22 10:03 - Today's Visit Information Type of service Follow-up Visit (Physician/[employer]OCIATE ) Arrival Mode Wheelchair Transfer Assistance None Accompanied by SON Patient Identification Verified (Name & Yes ) Patient Requires Transmission-Based No Precautions Safety Precautions Vital Signs Temperature (97.8 F-99.1 F) 95.9 F L Temperature Source Temporal Pulse Rate (60-100) 65 Pulse Location Monitor Respiratory Rate (12-18) 16 Respiratory rate source Observation Oxygen Delivery Method Room Air Blood Pressure (90/60-120/80) 136/47 H Blood Pressure Mean (mm Hg) 76 Source Monitor Position Sitting Blood Pressure Location Left Forearm History Since Last Visit- (Skip if this is Patient's initial visit) Have you changed medications since your No last visit? Any new allergies or adverse reactions No Had a fall/change in ADL's that may No increase risk of falls Signs or symptoms of abuse and/or No neglect since last visit Have you been in the hospital since your No last visit? Has dressing in place as prescribed Yes Has compression in place as prescribed Yes Has offloadiing in place as prescribed N/A Experienced any changes in pain level or No management Left Footwear Diabetic Shoe Right Footwear Diabetic Shoe Pain Scale: 0-10 Numeric Is Patient Pain Free? Yes WC - Nurse 1 - General Ulcer Measurement Start: 08/03/22 13:17 Freq: Status: Active Protocol: Activity Type Activity Date Activity User E-sign Co-sign Detail Recorded Client Recorded Date Recorded By Document 08/03/22 13:17 ML [id number] 08/03/22 13:19 ML Document 08/10/22 10:00 RB [id number] 08/10/22 10:04 RB Document 08/17/22 09:43 BMF [id number] 08/17/22 09:47 BMF Document 08/24/22 10:03 BMF [id number] 08/24/22 10:11 BMF 08/03/22 08/10/22 08/17/22 13:17 10:00 09:43 Wound Center Nurse 1 #2 left farias -Combined with other wound No No -Current Size (cm) - Length 2 1.7 1.5 -Current Size (cm) - Width 1.2 0.9 1.2 -Current Size (cm) - Depth 0.1 0.1 0.1 -Total Square Cm 2.4 1.53 1.80 -Date of Last Picture (Recall this 08/17/22 field) -Photo Taken Yes Yes -Epithelialization Small 1-33% -Tunneling No No -Undermining/Tunneling No No -Circular Undermining No No -Exudate Amt Small Medium Medium -Exudate Type Serosanguineous Serosanguineous Serosanguineous -Wound Margin Distinct, Distinct, Flat & Intact Outline Outline Attached Attached -Granulation Amt Small (1-33%) Medium (34-66%) Medium (34-66%) -Granulation Quality [place] -Slough/Fibrin Yes Yes Yes -Necrosis Amt Small (1-33%) Small (1-33%) Medium (34-66%) -Necrotic Tissue Type Adherent Slough Adherent Slough Adherent Slough -Structure Exposed N/A -Texture (Sheba-wound Skin Appearance) Assessed Assessed, Assessed, Scarring Scarring -Moisture (Sheba-wound Skin Appearance) Assessed Assessed Assessed,Dry/ Scaly -Color (Sheba-wound Skin Appearance) Assessed Assessed Assessed -Temperature (Sheba-wound Skin No Abnormality No Abnormality No Abnormality Appearance) (Pt Warm) (Pt Warm) (Pt Warm) -Tenderness on Palpation (Sheba-wound No No No Skin Appearance) -Ulcer Cleansing Rinsed/ Wound Cleanser Soap and Water Irrigated with Saline -Foul Odor after Cleansing No No No -Anesthetic Used 5% Lidocaine 5% Lidocaine 5% Lidocaine Gel Gel Gel Lower Limb Edema Present Yes Yes Left Calf (cm) 38 39.8 40.5 Left Ankle (cm) 24 24 24.3 08/24/22 10:03 Wound Center Nurse 1 #2 left farias -Combined with other wound -Current Size (cm) - Length 0.8 -Current Size (cm) - Width 1.4 -Current Size (cm) - Depth 0.1 -Total Square Cm 1.12 -Date of Last Picture (Recall this 08/24/22 field) -Photo Taken Yes -Epithelialization Small 1-33% -Tunneling No -Undermining/Tunneling No -Circular Undermining No -Exudate Amt Small -Exudate Type Serosanguineous -Wound Margin Flat & Intact -Granulation Amt Medium (34-66%) -Granulation Quality Red -Slough/Fibrin Yes -Necrosis Amt Medium (34-66%) -Necrotic Tissue Type Adherent Slough -Structure Exposed -Texture (Sheba-wound Skin Appearance) Assessed, Scarring -Moisture (Sheba-wound Skin Appearance) Assessed -Color (Sheba-wound Skin Appearance) Assessed -Temperature (Sheba-wound Skin No Abnormality Appearance) (Pt Warm) -Tenderness on Palpation (Sheba-wound No Skin Appearance) -Ulcer Cleansing Rinsed/ Irrigated with Saline -Foul Odor after Cleansing No -Anesthetic Used 5% Lidocaine Gel Lower Limb Edema Present Yes Left Calf (cm) 42.4 Left Ankle (cm) 24.8 WC - Nurse 2 - General Ulcer CM Notes Start: 08/03/22 13:17 Freq: Status: Active Protocol: Activity Type Activity Date Activity User E-sign Co-sign Detail Recorded Client Recorded Date Recorded By Document 08/03/22 13:38 KAITLIN [id number] 08/03/22 13:40 Document 08/10/22 10:20 [id number] 08/10/22 10:22 Document 08/17/22 10:11 [id number] 08/17/22 10:13 Document 08/24/22 10:16 Laptop 08/24/22 10:18 08/03/22 08/10/22 08/17/22 13:38 10:20 10:11 Wound Center Nurse 2 #2 left farias -Time 13:39 10:21 10:12 -Correct Patient Yes Yes Yes -Correct Side, Site, Position Yes Yes Yes -Correct Procedure Yes Yes Yes -Procedure Performed Yes Yes Yes -Type of Procedure Debridement Debridement Debridement -Clinical Debridement Subcutaneous Subcutaneous Subcutaneous -Tissue Removed Subcutaneous Subcutaneous Subcutaneous -Post Debridement (cm) - Length 2.2 1.8 1.7 -Post Debridement (cm) - Width 1.7 1.4 1 -Post Debridement (cm) - Depth 0.1 0.1 0.1 -Total Square (Post) (cm) 3.74 2.52 1.7 -Area of Debridement (cm) - Length 2.2 1.8 1.7 -Area of Debridement (cm) - Width 1.7 1.4 1 -Total Square (Area) (cm) 3.74 2.52 1.7 -Tunneling No No No -Undermining/Tunneling No No No -Circular Undermining No No No -Wound/Ulcer Outcome Not Healed Not Healed Not Healed -Ulcer Cleansing Rinsed/ Rinsed/ Rinsed/ Irrigated with Irrigated with Irrigated with Saline Saline Saline -Foul Odor after Cleansing No No No -Bioengineered Tissue No No No -Bleeding Controlled with Pressure Pressure Pressure -Treatment Response Procedure Procedure Procedure Tolerated Well Tolerated Well Tolerated Well -Offloading No No No -Debridement - Subq, 1st 20sq cm Yes Yes Yes Pain Scale: 0-10 Numeric Is Patient Pain Free? Yes Yes Yes 08/24/22 10:16 Wound Center Nurse 2 #2 left farias -Time 10:16 -Correct Patient Yes -Correct Side, Site, Position Yes -Correct Procedure Yes -Procedure Performed Yes -Type of Procedure Debridement -Clinical Debridement Subcutaneous -Tissue Removed Subcutaneous -Post Debridement (cm) - Length 1.0 -Post Debridement (cm) - Width 1.0 -Post Debridement (cm) - Depth 0.1 -Total Square (Post) (cm) 1.00 -Area of Debridement (cm) - Length 1.0 -Area of Debridement (cm) - Width 1.0 -Total Square (Area) (cm) 1.00 -Tunneling No -Undermining/Tunneling No -Circular Undermining No -Wound/Ulcer Outcome Not Healed -Ulcer Cleansing Rinsed/ Irrigated with Saline -Foul Odor after Cleansing No -Bioengineered Tissue No -Bleeding Controlled with Pressure -Treatment Response Procedure Tolerated Well -Offloading No -Debridement - Subq, 1st 20sq cm Yes Pain Scale: 0-10 Numeric Is Patient Pain Free? Yes - Nurse 3 - General Ulcer D/C NN Start: 08/03/22 13:17 Freq: Status: Active Protocol: Activity Type Activity Date Activity User E-sign Co-sign Detail Recorded Client Recorded Date Recorded By Document 08/03/22 13:43 KR [id number] 08/03/22 13:43 KR Document 08/17/22 10:26 [facility] [id number] 08/17/22 10:26 [facility] Document 08/24/22 10:40 RB [id number] 08/24/22 10:41 RB 08/03/22 08/17/22 08/24/22 13:43 10:26 10:40 Wound Care Nurse 3 #2 left farias -Ulcer Cleansing Rinsed/ Rinsed/ Rinsed/ Irrigated with Irrigated with Irrigated with Saline Saline Saline -Foul Odor after Cleansing No -Primary Dressing Applied NonAdherent Contact Layer, Promogran Cindy Matter -Other Dressing cindy promogran pt own -Primary Dressing Covered/Secured with Dry Gauze, Dry Gauze & Dry Gauze & Secured with Roll Gauze, Roll Gauze, Tape Secured with Secured with Tape Tape -Promogran Cindy Matter 1 Left -Tubular Bandage Double Layer -Size of Tubigrip Used Size D -Size D ($) 2 ble -Tubular Bandage Double Layer -Size of Tubigrip Used Size E -Size E ($) 2 Treatment Response Procedure Procedure Tolerated Well Tolerated Well Pain Scale: 0-10 Numeric Is Patient Pain Free? Yes Yes Yes - Visit Discharge Discharge Condition Stable Stable Ambulatory Status Ambulatory Wheelchair Wheelchair Transportation Private Auto Private Auto Private Auto Accompanied by son Medication Reconcilliation completed & No provided to patient/care provider Clinical Summary of Care Provided Yes Assessment/Plan Assessment/Plan (1) Ulcer of left lower extremity with fat layer exposed: CODE(S): L97.922 - Non-pressure chronic ulcer of unspecified part of left lower leg with fat layer exposed (2) Edema of both lower legs: CODE(S): R60.0 - Localized edema (3) Chronic anticoagulation: CODE(S): Z79.01 - senior care (current) use of anticoagulants (4) On home oxygen therapy: CODE(S): Z99.81 - Dependence on supplemental oxygen (5) Atrial fibrillation: CODE(S): I48.91 - Unspecified atrial fibrillation PLAN: Plan Patient was seen and evaluated today at the wound center and a subcutaneous debridement was performed as documented. Wound culture obtained on 05/27/22 Staphylococcus epidermidis, Corynebacterium jeikeium, Corynebacterium amycolatum. She was treated with Augmentin and a probiotic. Wound care - Left leg ulcer is moistened Cindy covered with adaptic and topped with gauze 3 times a week. She has home health to assist with her dressing changes. She has been approved for Epifix but she states that she is not close to her deductible, therefore she does not want to use the advanced wound product. Compression - Double layer tubigrip. We did JESU's in the office 06/15/22 which showed her vessels are non compressible. Arterial studies on 07/19/22 - Biphasic and triphasic Doppler waveforms are noted at the ankle level on the right. Biphasic Doppler waveforms ar noted at the ankle level on the left. Pulse-volume recordings appear satisfactory at all levels bilaterally. Resting ankle-brachial indices could not be determined on either side due to the non-compressibility of the vasculature at the ankle level bilaterally. Digital-brachial indices are normal bilaterally. There is evidence of arterial calcification at ankle level bilaterally. There is no evidence of significant arterial occlusive disease in the lower extremities bilaterally. Venous studies on 07/19/22 - Segmental valvular incompetence is noted within the great saphenous veins bilaterally. The left small saphenous vein is patent and incompetent. The accessory saphenous vein at the right knee is incompetent. An incompetent cement mason maintenance vein is noted in the right calf, located 10 cm proximal to the right medial malleolus. Pulsatile flow is noted in the deep venous system bilaterally, which may be indicative of increased venous pressure (i.e. CHF, Pulmonary HTN, etc.). She saw Dr. Rosa on 08/04/22 and he stated that as long as she heals with local care there is no need for intervention. If she would have a reoccurrence, then she should follow up with him and he recommends graduated compression stockings to help control edema. He has given her a prescription for the stockings. Encouraged patient to try sleeping flat to help with edema, but she states she needs to sleep in her chair to help her breathe. Keep legs elevated when seated. Encouraged high protein diet and Vitamin C 1,000 mg intake daily to help with wound healing. Follow up one week. Call or come in sooner if have any questions or concerns.
== END 2022-08-29 23:59 | disposition home or self-care (01) ==
LOC: WC 09:45
PROVIDERS: PCP Family Medicine; Visit Provider Nurse Practitioner Family
DX: L97.822 Non-pressure chronic ulcer of other part of left lower leg with fat layer exposed (principal); I48.91 Unspecified atrial fibrillation; N18.30 Chronic kidney disease, stage 3 unspecified; Z99.81 Dependence on supplemental oxygen; I12.9 Hypertensive chronic kidney disease with stage 1 through stage 4 chronic kidney disease, or unspecified chronic kidney disease; R60.0 Localized edema; Z79.01 Long term (current) use of anticoagulants; E78.5 Hyperlipidemia, unspecified
CPT/HCPCS: 11042

== ENCOUNTER → 2022-09-01 | Outpatient (CLI) | payer MEDICARE, SELFPAY ==
--- NOTE | 2022-09-01 13:54 | ECHOD_ITS ---
Reason For Study: DYSPNEA Procedure This was a 2D Doppler, Color Flow transthoracic echocardiogram. Exam performed in department. Left Ventricle Normal size and thickness. The left ventricular ejection fraction is 65 %. Diastolic function is indeterminate. Right Ventricle Normal right ventricle. Atria The left atrium is severely enlarged. The right atrium is moderately enlarged. Mitral Valve Moderate mitral annular calcification. Moderately severe (3+) mitral valve insufficiency. Tricuspid Valve Mild to moderate (1-2+) tricuspid valve insufficiency. Right ventricular systolic pressure estimated to be 64 mmHg. Severe pulmonary hypertension. Aortic Valve Aortic sclerosis, no stenosis. Mild-Moderate (1-2+) aortic valve insufficiency. Pulmonic Valve The pulmonic valve is not well visualized. Great Vessels Normal sized aortic root. Pericardium/Pleural No pericardial effusion. MMode/2D Measurements & Calculations LVIDd: 5.0 cm IVSd: 0.95 cm Ao root diam: 3.6 cm LVIDs: 3.5 cm LVPWd: 1.1 cm FS: 30.6 % LAV(MOD-bp): 125.7 ml LVAd ap4: 21.0 cm2 SV(MOD-sp4): 32.6 ml LAV(MOD-bp) Indexed: 67.9 ml/m2 LVLd ap4: 6.3 cm LAV(MOD-sp2): 132.7 ml EDV(MOD-sp4): 58.6 ml LAV(MOD-sp4): 111.4 ml EDV(sp4-el): 59.8 ml LVAs ap4: 12.9 cm2 LVLs ap4: 5.5 cm ESV(MOD-sp4): 26.0 ml ESV(sp4-el): 25.6 ml EF(MOD-sp4): 55.6 % EF(sp4-el): 57.2 % SV(sp4-el): 34.2 ml LA A4 area: 31.1 cm2 LA dimension(2D): 5.2 cm RA A4 area: 13.8 cm2 Doppler Measurements & Calculations MV E max billie: 139.0 cm/sec MV V2 max: 136.4 cm/sec Ao V2 max: 140.5 cm/sec MV max P.5 mmHg Ao max P.2 mmHg MV V2 mean: 75.8 cm/sec Ao V2 mean: 94.7 cm/sec MV mean P.8 mmHg Ao mean P.3 mmHg MV V2 VTI: 25.6 cm Ao V2 VTI: 27.9 cm AI max billie: 417.9 cm/sec LV V1 max: 104.6 cm/sec PA V2 max: 83.4 cm/sec AI max P.9 mmHg LV V1 max P.4 mmHg PA V2 mean: 64.7 cm/sec LV V1 mean P.3 mmHg AI dec slope: 258.9 cm/sec2 LV V1 mean: 71.5 cm/sec AI P1/2t: 472.8 msec LV V1 VTI: 21.5 cm TR max billie: 383.0 cm/sec TR max P.7 mmHg ECHO/Echo Complete Interpretation Summary The left ventricular ejection fraction is 65 %. Diastolic function is indeterminate. The left atrium is severely enlarged. The right atrium is moderately enlarged. Moderately severe (3+) mitral valve insufficiency. Right ventricular systolic pressure estimated to be 64 mmHg. Severe pulmonary hypertension. Mild-Moderate (1-2+) aortic valve insufficiency. Ordering Physician: Yasmany Lowe V Referring Physician: Yasmany Lowe V Performed By: Maddy Gupta RCS
== END | disposition home or self-care (01) ==
PROVIDERS: PCP Family Medicine; Referring Provider Internal Medicine Pulmonary Disease; Visit Provider Internal Medicine Pulmonary Disease
DX: R06.00 Dyspnea, unspecified (principal); I48.91 Unspecified atrial fibrillation
CPT/HCPCS: 93306

== ENCOUNTER 2022-09-14 08:30 | Outpatient (RCR) | payer MEDICARE, SELFPAY ==
[2022-08-30 00:30] VITALS: BP 136/47; PULSE 65; RESP 16; TEMP 35.5
[2022-08-31 09:50] VITALS: BP 133/44; PULSE 64; RESP 18; TEMP 36.1
--- NOTE | 2022-08-31 13:48 | PN.PCM_ITS ---
History of Present Illness Date of Service: 08/31/22 Chief Complaint: Left leg wound and right anterior leg wound History of Wound: Left leg wound occurred the end of March when she getting into a Jeep, she scraped her leg along the side of the vehicle. She went to her PCP who had her placing silvadene cream topped with telfa dressing on the wound. In April she dropped her Ipad and it hit her right anterior leg and left an open wound, which has been draining quite a bit of clear drainage. She has a history of pulmonary fibrosis and is on oxygen at night time and PRN, Afib on warfarin, CKD stage 3, HTN, hypothyroidism, hyperlipidemia, aortic valve regurgitation, and bilateral knee replacements. She does sleep in a chair. Wound care - Left anterior leg ulcer Cat covered with gauze 3 times per week. She has home health to assist with her dressing changes. Compression is a double medium strength tubigrip. We did JESU's in the office 06/15/22 which showed her vessels are non compressible. Arterial studies on 07/19/22 - Biphasic and triphasic Doppler waveforms are noted at the ankle level on the right. Biphasic Doppler waveforms ar noted at the ankle level on the left. Pulse-volume recordings appear satisfactory at all levels bilaterally. Resting ankle-brachial indices could not be determined on either side due to the non-compressibility of the vasculature at the ankle level bilaterally. Digital-brachial indices are normal bilaterally. There is evidence of arterial calcification at ankle level bilaterally. There is no evidence of significant arterial occlusive disease in the lower extremities bilaterally. Venous studies on 07/19/22 - Segmental valvular incompetence is noted within the great saphenous veins bilaterally. The left small saphenous vein is patent and incompetent. The accessory saphenous vein at the right knee is incompetent. An incompetent tobacco primer machine operator vein is noted in the right calf, located 10 cm proximal to the right medial malleolus. Pulsitile flow is noted in the deep venous system bilaterally, which may be indicative of increased venous pressure (i.e. CHF, Pulmonary HTN, etc.). Clinical correlation is recommended. Wound culture obtained on Staphylococcus epidermidis, Corynebacterium jeikeium, Corynebacterium amycolatum and she was treated with Augmentin and a probiotic. DERRELL wrap for compression. JESU's done in the office on 06/14/22 and they are both non compressible. She denies any fever, chills, nausea or vomiting. Progress of Wound: Left anterior leg ulcer is much smaller in diameter. Objective Data Objective Data Vital Signs: Vital Signs Temp Pulse Resp BP 97 F L 64 18 133/44 H 08/31/22 09:50 08/31/22 09:50 08/31/22 09:50 08/31/22 09:50 Charges/Coding Procedures Integumentary [id number]-113xx: 10392 Clari subq tissue 20 sq cm/< Debridement Note Debridement Note Wound debrided: Anterior leg ulcer Laterality: Left Type of Debridement: Excisional debridement Anesthesia Used: 5% Lidocaine Gel Depth: Down to and including healthy tissue and in the subcutaneous layer Percentage of wound debrided: 100 Instrument Used: 3mm curette Tissue Removed: Devitalized tissue and slough Severity: Fat Layer Exposed Amount of bleeding with debridement: Mild Bleeding Controlled with: Compression and gauze Patient tolerated procedure: Patient tolerated procedure well Post-Debridement Measurements and Additional Note: Post-Debridement Measurements/Treatment - Nurse 1 - General Ulcer Assessment Start: 08/31/22 09:50 Freq: Status: Active Protocol: [email or web address] Activity Type Activity Date Activity User E-sign Co-sign Detail Recorded Client Recorded Date Recorded By Document 08/31/22 09:50 [id number] 08/31/22 09:55 DL 08/31/22 09:50 - Today's Visit Information Type of service Follow-up Visit (Physician/FREELANCE INTERPRETER/TRANSLATOR ) Arrival Mode Wheelchair Transfer Assistance Manual Patient Identification Verified (Name & No ) Patient Requires Transmission-Based No Precautions Vital Signs Temperature (97.8 F-99.1 F) 97 F L Temperature Source Temporal Pulse Rate (60-100) 64 Pulse Location Monitor Respiratory Rate (12-18) 18 Respiratory rate source Observation Blood Pressure (90/60-120/80) 133/44 H Blood Pressure Mean (mm Hg) 73 Source Monitor Position Sitting Blood Pressure Location Left Arm History Since Last Visit- (Skip if this is Patient's initial visit) Have you changed medications since your No last visit? Any new allergies or adverse reactions No Had a fall/change in ADL's that may No increase risk of falls Signs or symptoms of abuse and/or No neglect since last visit Have you been in the hospital since your No last visit? Has dressing in place as prescribed Yes Has compression in place as prescribed Yes Has offloadiing in place as prescribed No Pain Scale: 0-10 Numeric Is Patient Pain Free? Yes - Nurse 1 - General Ulcer Measurement Start: 08/31/22 09:50 Freq: Status: Active Protocol: Activity Type Activity Date Activity User E-sign Co-sign Detail Recorded Client Recorded Date Recorded By Document 08/31/22 09:50 DL [id number] 08/31/22 09:55 DL 08/31/22 09:50 Wound Center Nurse 1 #2 left farias -Combined with other wound No -Current Size (cm) - Length 0.5 -Current Size (cm) - Width 0.4 -Current Size (cm) - Depth 0.1 -Total Square Cm 0.20 -Tunneling No -Undermining/Tunneling No -Circular Undermining No -Exudate Amt Small -Exudate Type Serosanguineous -Wound Margin Distinct, Outline Attached -Granulation Amt Medium (34-66%) -Granulation Quality [place] -Slough/Fibrin Yes -Necrosis Amt Medium (34-66%) -Necrotic Tissue Type Adherent Slough -Structure Exposed N/A -Texture (Sheba-wound Skin Appearance) Assessed -Moisture (Sheba-wound Skin Appearance) Assessed -Color (Sheba-wound Skin Appearance) Assessed -Temperature (Sheba-wound Skin No Abnormality Appearance) (Pt Warm) -Tenderness on Palpation (Sheba-wound No Skin Appearance) -Ulcer Cleansing Rinsed/ Irrigated with Saline -Foul Odor after Cleansing No -Anesthetic Used 4% Lidocaine Solution Lower Limb Edema Present Yes Right Calf (cm) 36 Right Ankle (cm) 26.5 Left Calf (cm) 40.2 Left Ankle (cm) 24.5 LUCIANO - Nurse 2 - General Ulcer CM Notes Start: 08/31/22 09:50 Freq: Status: Active Protocol: Activity Type Activity Date Activity User E-sign Co-sign Detail Recorded Client Recorded Date Recorded By Document 08/31/22 10:25 KAITLIN [id number] 08/31/22 10:27 KAITLIN 08/31/22 10:25 Wound Center Nurse 2 #2 left farias -Time 10:25 -Correct Patient Yes -Correct Side, Site, Position Yes -Correct Procedure Yes -Procedure Performed Yes -Type of Procedure Debridement -Clinical Debridement Subcutaneous -Tissue Removed Subcutaneous -Post Debridement (cm) - Length 0.7 -Post Debridement (cm) - Width 0.6 -Post Debridement (cm) - Depth 0.1 -Total Square (Post) (cm) 0.42 -Area of Debridement (cm) - Length 0.7 -Area of Debridement (cm) - Width 0.6 -Total Square (Area) (cm) 0.42 -Tunneling No -Undermining/Tunneling No -Circular Undermining No -Wound/Ulcer Outcome Not Healed -Ulcer Cleansing Rinsed/ Irrigated with Saline -Foul Odor after Cleansing No -Bioengineered Tissue No -Bleeding Controlled with Pressure -Treatment Response Procedure Tolerated Well -Offloading No -Debridement - Subq, 1st 20sq cm Yes Pain Scale: 0-10 Numeric Is Patient Pain Free? Yes - Nurse 3 - General Ulcer D/C NN Start: 08/31/22 09:50 Freq: Status: Active Protocol: Activity Type Activity Date Activity User E-sign Co-sign Detail Recorded Client Recorded Date Recorded By Document 08/31/22 10:34 Desktop 08/31/22 10:36 08/31/22 10:34 Wound Care Nurse 3 #2 left farias -Ulcer Cleansing Rinsed/ Irrigated with Saline -Foul Odor after Cleansing No -Negative Pressure Wound Therapy N/A -Primary Dressing Applied Promogran Cat Matter -Primary Dressing Covered/Secured with Dry Gauze,Dry Gauze & Roll Gauze,Secured with Tape -Promogran Cat Matter 1 Right -Stockings Yes Left -Stockings Yes Treatment Response Procedure Tolerated Well Pain Scale: 0-10 Numeric Is Patient Pain Free? Yes - Visit Discharge Discharge Condition Stable Ambulatory Status Wheelchair Transportation Private Auto Medication Reconcilliation completed & No provided to patient/care provider Clinical Summary of Care Provided Yes Assessment/Plan Assessment/Plan (1) Ulcer of left lower extremity with fat layer exposed: CODE(S): L97.922 - Non-pressure chronic ulcer of unspecified part of left lower leg with fat layer exposed (2) Edema of both lower legs: CODE(S): R60.0 - Localized edema (3) Chronic anticoagulation: CODE(S): Z79.01 - USP (current) use of anticoagulants (4) On home oxygen therapy: CODE(S): Z99.81 - Dependence on supplemental oxygen (5) Atrial fibrillation: CODE(S): I48.91 - Unspecified atrial fibrillation PLAN: Plan Patient was seen and evaluated today at the wound center and a subcutaneous debridement was performed as documented. Wound culture obtained on 05/27/22 Staphylococcus epidermidis, Corynebacterium jeikeium, Corynebacterium amycolatum. She was treated with Augmentin and a probiotic. Wound care - Left leg ulcer is moistened Cat covered with adaptic and topped with gauze 3 times a week. She has home health to assist with her dressing changes. She has been approved for Epifix but she states that she is not close to her deductible, therefore she does not want to use the advanced wound product. Compression - Double layer tubigrip. Encouraged patient to get the compression stockings that Dr. Rosa ordered. We did JESU's in the office 06/15/22 which showed her vessels are non compressible. Arterial studies on 07/19/22 - Biphasic and triphasic Doppler waveforms are noted at the ankle level on the right. Biphasic Doppler waveforms ar noted at the ankle level on the left. Pulse-volume recordings appear satisfactory at all levels bilaterally. Resting ankle-brachial indices could not be determined on either side due to the non-compressibility of the vasculature at the ankle level bilaterally. Digital-brachial indices are normal bilaterally. There is evidence of arterial calcification at ankle level bilaterally. There is no evidence of significant arterial occlusive disease in the lower extremities bilaterally. Venous studies on 07/19/22 - Segmental valvular incompetence is noted within the great saphenous veins bilaterally. The left small saphenous vein is patent and incompetent. The accessory saphenous vein at the right knee is incompetent. An incompetent tobacco primer machine operator vein is noted in the right calf, located 10 cm proximal to the right medial malleolus. Pulsatile flow is noted in the deep venous system bilaterally, which may be indicative of increased venous pressure (i.e. CHF, Pulmonary HTN, etc.). She saw Dr. Rosa on 08/04/22 and he stated that as long as she heals with local care there is no need for intervention. If she would have a reoccurrence, then she should follow up with him and he recommends graduated compression stockings to help control edema. He has given her a prescription for the stockings. Encouraged patient to try sleeping flat to help with edema, but she states she needs to sleep in her chair to help her breathe. Keep legs elevated when seated. Encouraged high protein diet and Vitamin C 1,000 mg intake daily to help with wound healing. Follow up one week. Call or come in sooner if have any questions or concerns.
[2022-09-07 09:57] VITALS: BP 127/49; PULSE 86; RESP 20; TEMP 36.4
--- NOTE | 2022-09-07 11:00 | PCM.WC.PN ---
History of Present Illness Date of Service: 09/07/22 Chief Complaint: Left leg wound and right anterior leg wound History of Wound: Left leg wound occurred the end of March when she getting into a Jeep, she scraped her leg along the side of the vehicle. She went to her PCP who had her placing silvadene cream topped with telfa dressing on the wound. In April she dropped her Ipad and it hit her right anterior leg and left an open wound, which has been draining quite a bit of clear drainage. She has a history of pulmonary fibrosis and is on oxygen at night time and PRN, Afib on warfarin, CKD stage 3, HTN, hypothyroidism, hyperlipidemia, aortic valve regurgitation, and bilateral knee replacements. She does sleep in a chair. Wound care - Left anterior leg ulcer Cat covered with gauze 3 times per week. She has home health to assist with her dressing changes. Compression is a double medium strength tubigrip. We did JESU's in the office 06/15/22 which showed her vessels are non compressible. Arterial studies on 07/19/22 - Biphasic and triphasic Doppler waveforms are noted at the ankle level on the right. Biphasic Doppler waveforms ar noted at the ankle level on the left. Pulse-volume recordings appear satisfactory at all levels bilaterally. Resting ankle-brachial indices could not be determined on either side due to the non-compressibility of the vasculature at the ankle level bilaterally. Digital-brachial indices are normal bilaterally. There is evidence of arterial calcification at ankle level bilaterally. There is no evidence of significant arterial occlusive disease in the lower extremities bilaterally. Venous studies on 07/19/22 - Segmental valvular incompetence is noted within the great saphenous veins bilaterally. The left small saphenous vein is patent and incompetent. The accessory saphenous vein at the right knee is incompetent. An incompetent press tender smoke signal vein is noted in the right calf, located 10 cm proximal to the right medial malleolus. Pulsitile flow is noted in the deep venous system bilaterally, which may be indicative of increased venous pressure (i.e. CHF, Pulmonary HTN, etc.). Clinical correlation is recommended. Wound culture obtained on Staphylococcus epidermidis, Corynebacterium jeikeium, Corynebacterium amycolatum and she was treated with Augmentin and a probiotic. DERRELL wrap for compression. JESU's done in the office on 06/14/22 and they are both non compressible. She denies any fever, chills, nausea or vomiting. Progress of Wound: Left anterior leg ulcer is much smaller, it is almost healed. Objective Data Objective Data Vital Signs: Vital Signs Temp Pulse Resp BP 97.6 F L 86 20 H 127/49 H 09/07/22 09:57 09/07/22 09:57 09/07/22 09:57 09/07/22 09:57 Charges/Coding Procedures Integumentary [id number]: [id number] Clari subq tissue 20 sq cm/< Debridement Note Debridement Note Wound debrided: Anterior leg ulcer Laterality: Left Type of Debridement: Excisional debridement Anesthesia Used: 5% Lidocaine Gel Depth: Down to and including healthy tissue and in the subcutaneous layer Percentage of wound debrided: 100 Instrument Used: 3mm curette Tissue Removed: Devitalized tissue and slough Severity: Fat Layer Exposed Amount of bleeding with debridement: Mild Bleeding Controlled with: Compression and gauze Patient tolerated procedure: Patient tolerated procedure well Post-Debridement Measurements and Additional Note: Post-Debridement Measurements/Treatment - Nurse 1 - General Ulcer Assessment Start: 08/31/22 09:50 Freq: Status: Active Protocol: FIDELINA Activity Type Activity Date Activity User E-sign Co-sign Detail Recorded Client Recorded Date Recorded By Document 08/31/22 09:50 DL [id number] 08/31/22 09:55 DL Document 09/07/22 09:57 DL [id number] 09/07/22 10:05 DL 08/31/22 09/07/22 09:50 09:57 - Today's Visit Information Type of service Follow-up Visit Follow-up Visit (Physician/[facility] (Physician/[facility] ) ) Arrival Mode Wheelchair Wheelchair Transfer Assistance Manual None Patient Identification Verified (Name & No Yes ) Patient Requires Transmission-Based No No Precautions Vital Signs Temperature (97.8 F-99.1 F) 97 F L 97.6 F L Temperature Source Temporal Temporal Pulse Rate (60-100) 64 86 Pulse Location Monitor Monitor Respiratory Rate (12-18) 18 20 H Respiratory rate source Observation Observation Blood Pressure (90/60-120/80) 133/44 H 127/49 H Blood Pressure Mean (mm Hg) 73 75 Source Monitor Monitor Position Sitting Blood Pressure Location Left Arm History Since Last Visit- (Skip if this is Patient's initial visit) Have you changed medications since your No No last visit? Any new allergies or adverse reactions No No Had a fall/change in ADL's that may No No increase risk of falls Signs or symptoms of abuse and/or No No neglect since last visit Have you been in the hospital since your No No last visit? Has dressing in place as prescribed Yes Yes Has compression in place as prescribed Yes Yes Has offloadiing in place as prescribed No N/A Experienced any changes in pain level or No management Pain Scale: 0-10 Numeric Is Patient Pain Free? Yes Yes WC - Nurse 1 - General Ulcer Measurement Start: 08/31/22 09:50 Freq: Status: Active Protocol: Activity Type Activity Date Activity User E-sign Co-sign Detail Recorded Client Recorded Date Recorded By Document 08/31/22 09:50 DL [id number] 08/31/22 09:55 DL Document 09/07/22 09:57 DL [id number] 09/07/22 10:05 DL 08/31/22 09/07/22 09:50 09:57 Wound Center Nurse 1 #2 left farias -Combined with other wound No -Current Size (cm) - Length 0.5 0.1 -Current Size (cm) - Width 0.4 0.1 -Current Size (cm) - Depth 0.1 0.1 -Total Square Cm 0.20 0.01 -Photo Taken No -Tunneling No -Undermining/Tunneling No -Circular Undermining No -Exudate Amt Small None Present -Exudate Type Serosanguineous -Wound Margin Distinct, Thickened Outline Attached -Granulation Amt Medium (34-66%) Small (1-33%) -Granulation Quality Milner Milner -Slough/Fibrin Yes -Necrosis Amt Medium (34-66%) Small (1-33%) -Necrotic Tissue Type Adherent Slough Adherent Slough -Structure Exposed N/A N/A -Texture (Sheba-wound Skin Appearance) Assessed Scarring -Moisture (Sheba-wound Skin Appearance) Assessed No Abnormality -Color (Sheba-wound Skin Appearance) Assessed Hemosiderin Staining -Temperature (Sheba-wound Skin No Abnormality No Abnormality Appearance) (Pt Warm) (Pt Warm) -Tenderness on Palpation (Sheba-wound No No Skin Appearance) -Ulcer Cleansing Rinsed/ Rinsed/ Irrigated with Irrigated with Saline Saline -Foul Odor after Cleansing No No -Anesthetic Used 4% Lidocaine 4% Lidocaine Solution Solution Lower Limb Edema Present Yes Right Calf (cm) 36 Right Ankle (cm) 26.5 Left Calf (cm) 40.2 45 Left Ankle (cm) 24.5 24.2 - Nurse 2 - General Ulcer CM Notes Start: 08/31/22 09:50 Freq: Status: Active Protocol: Activity Type Activity Date Activity User E-sign Co-sign Detail Recorded Client Recorded Date Recorded By Document 08/31/22 10:25 [id number] 08/31/22 10:27 Document 09/07/22 10:33 [id number] 09/07/22 10:35 08/31/22 09/07/22 10:25 10:33 Wound Center Nurse 2 #2 left farias -Time 10:25 10:35 -Correct Patient Yes Yes -Correct Side, Site, Position Yes Yes -Correct Procedure Yes Yes -Procedure Performed Yes Yes -Type of Procedure Debridement Debridement -Clinical Debridement Subcutaneous Subcutaneous -Tissue Removed Subcutaneous Subcutaneous -Post Debridement (cm) - Length 0.7 0.4 -Post Debridement (cm) - Width 0.6 0.4 -Post Debridement (cm) - Depth 0.1 0.1 -Total Square (Post) (cm) 0.42 0.16 -Area of Debridement (cm) - Length 0.7 0.4 -Area of Debridement (cm) - Width 0.6 0.4 -Total Square (Area) (cm) 0.42 0.16 -Tunneling No No -Undermining/Tunneling No No -Circular Undermining No No -Wound/Ulcer Outcome Not Healed Not Healed -Ulcer Cleansing Rinsed/ Rinsed/ Irrigated with Irrigated with Saline Saline -Foul Odor after Cleansing No No -Bioengineered Tissue No No -Bleeding Controlled with Pressure Pressure -Treatment Response Procedure Procedure Tolerated Well Tolerated Well -Offloading No No -Debridement - Subq, 1st 20sq cm Yes Yes Pain Scale: 0-10 Numeric Is Patient Pain Free? Yes Yes LUCIANO - Nurse 3 - General Ulcer D/C NN Start: 08/31/22 09:50 Freq: Status: Active Protocol: Activity Type Activity Date Activity User E-sign Co-sign Detail Recorded Client Recorded Date Recorded By Document 08/31/22 10:34 RB Desktop 08/31/22 10:36 RB 08/31/22 10:34 Wound Care Nurse 3 #2 left farias -Ulcer Cleansing Rinsed/ Irrigated with Saline -Foul Odor after Cleansing No -Negative Pressure Wound Therapy N/A -Primary Dressing Applied Promogran Cat Matter -Primary Dressing Covered/Secured with Dry Gauze,Dry Gauze & Roll Gauze,Secured with Tape -Promogran Cat Matter 1 Right -Stockings Yes Left -Stockings Yes Treatment Response Procedure Tolerated Well Pain Scale: 0-10 Numeric Is Patient Pain Free? Yes WC - Visit Discharge Discharge Condition Stable Ambulatory Status Wheelchair Transportation Private Auto Medication Reconcilliation completed & No provided to patient/care provider Clinical Summary of Care Provided Yes Assessment/Plan Assessment/Plan (1) Ulcer of left lower extremity with fat layer exposed: CODE(S): L97.922 - Non-pressure chronic ulcer of unspecified part of left lower leg with fat layer exposed (2) Edema of both lower legs: CODE(S): R60.0 - Localized edema (3) Chronic anticoagulation: CODE(S): Z79.01 - half-way (current) use of anticoagulants (4) On home oxygen therapy: CODE(S): Z99.81 - Dependence on supplemental oxygen (5) Atrial fibrillation: CODE(S): I48.91 - Unspecified atrial fibrillation PLAN: Plan Patient was seen and evaluated today at the wound center and a subcutaneous debridement was performed as documented. Wound culture obtained on 05/27/22 Staphylococcus epidermidis, Corynebacterium jeikeium, Corynebacterium amycolatum. She was treated with Augmentin and a probiotic. Wound care - Left leg ulcer is Collagen hydrogel covered with adaptic and topped with gauze 3 times a week. She has home health to assist with her dressing changes. She has been approved for Epifix but she states that she is not close to her deductible, therefore she does not want to use the advanced wound product. Compression - She brought in her compression stockings that Dr. Rosa ordered for her so she can be instructed how to put them on today. We did JESU's in the office 06/15/22 which showed her vessels are non compressible. Arterial studies on 07/19/22 - Biphasic and triphasic Doppler waveforms are noted at the ankle level on the right. Biphasic Doppler waveforms ar noted at the ankle level on the left. Pulse-volume recordings appear satisfactory at all levels bilaterally. Resting ankle-brachial indices could not be determined on either side due to the non-compressibility of the vasculature at the ankle level bilaterally. Digital-brachial indices are normal bilaterally. There is evidence of arterial calcification at ankle level bilaterally. There is no evidence of significant arterial occlusive disease in the lower extremities bilaterally. Venous studies on 07/19/22 - Segmental valvular incompetence is noted within the great saphenous veins bilaterally. The left small saphenous vein is patent and incompetent. The accessory saphenous vein at the right knee is incompetent. An incompetent press tender smoke signal vein is noted in the right calf, located 10 cm proximal to the right medial malleolus. Pulsatile flow is noted in the deep venous system bilaterally, which may be indicative of increased venous pressure (i.e. CHF, Pulmonary HTN, etc.). She saw Dr. Rosa on 08/04/22 and he stated that as long as she heals with local care there is no need for intervention. If she would have a reoccurrence, then she should follow up with him and he recommends graduated compression stockings to help control edema. He has given her a prescription for the stockings. Encouraged patient to try sleeping flat to help with edema, but she states she needs to sleep in her chair to help her breathe. Keep legs elevated when seated. Encouraged high protein diet and Vitamin C 1,000 mg intake daily to help with wound healing. Follow up one week. Call or come in sooner if have any questions or concerns.
[2022-09-14 08:39] VITALS: BP 142/48; PULSE 84; RESP 18; TEMP 36.1
== END 2022-09-28 23:59 | disposition home or self-care (01) ==
LOC: WC 08:30
PROVIDERS: PCP Family Medicine; Visit Provider Nurse Practitioner Family
DX: L97.822 Non-pressure chronic ulcer of other part of left lower leg with fat layer exposed (principal); I48.91 Unspecified atrial fibrillation; N18.30 Chronic kidney disease, stage 3 unspecified; E78.5 Hyperlipidemia, unspecified; Z99.81 Dependence on supplemental oxygen; R60.0 Localized edema; I12.9 Hypertensive chronic kidney disease with stage 1 through stage 4 chronic kidney disease, or unspecified chronic kidney disease; Z79.01 Long term (current) use of anticoagulants
CPT/HCPCS: 11042; 99212; G0463

== ENCOUNTER → 2022-09-28 | Outpatient (CLI) | payer MEDICARE, SELFPAY ==
--- NOTE | 2022-09-28 14:32 | CT_ITS ---
INDICATION: [id number] EXAMINATION: CT Chest W/O Contrast Injection TECHNIQUE: Helically acquired images were obtained of the chest without IV contrast. A radiation dose optimization technique was used for this scan. COMPARISON: 03/22/2021. FINDINGS: Lungs: Redemonstration of diffuse increased interstitial markings worse in the lower lobes with areas of confluence and subpleural blebs. This is in keeping with diffuse interstitial fibrosis and honeycombing. No change from prior. Mediastinum: The heart is moderately enlarged. Multiple unchanged prominent mediastinal nodes. Moderate to severe aortic arch and coronary artery calcifications. Pleura: Unremarkable Bones/Soft tissues: There are diffuse degenerative changes of the spine. Chronic compression deformities of T5, T11 and T12. Upper abdomen: No visualized abnormalities in the upper abdomen. CT/Chest without Contrast IMPRESSION: Stable appearance of chronic interstitial lung disease. Chronic compression deformities of T5, T11 and T12. No change from prior study 03/22/2021. Electronically Signed: Cuong Sanchez MD at 23:59 EST ,
== END | disposition home or self-care (01) ==
LOC: CT 14:30
PROVIDERS: PCP Family Medicine; Referring Provider Internal Medicine Pulmonary Disease; Visit Provider Internal Medicine Pulmonary Disease
DX: R06.00 Dyspnea, unspecified (principal)
CPT/HCPCS: 71250